=== PATIENT | female | born 1955 | race Caucasian/White ===

== ENCOUNTER → 2024-10-28 | Outpatient (CLI) | payer MEDICARE, BC, SELFPAY ==
[2024-10-28 14:15] LABS: Albumin, Serum 4.3 gm/dL (3.4-4.8); Anion Gap 7 (7-16); BUN/Creatinine Ratio 11 Ratio (12-20); Blood Urea Nitrogen 23 mg/dL (9-23); Calcium 10.4 mg/dL (8.3-10.6); Calcium (Corrected) 10.4 mg/dL (8.5-10.1); Carbon Dioxide 26.8 mMol/L (20.0-31.0); Chloride 103 mMol/L (98-107); Creatinine (Component) 2.1 mg/dL (0.6-1.3); Glucose 94 mg/dL (74-106); Osmolality,Calculated 277 (275-295); Sodium 137 mMol/L (136-145); eGFR 25 See Note
== END | disposition home or self-care (01) ==
PROVIDERS: PCP Nurse Practitioner Family; Referring Provider Internal Medicine; Visit Provider Internal Medicine
DX: N18.4 Chronic kidney disease, stage 4 (severe) (principal); D63.1 Anemia in chronic kidney disease; F32.9 Major depressive disorder, single episode, unspecified; D50.9 Iron deficiency anemia, unspecified; E55.9 Vitamin D deficiency, unspecified
CPT/HCPCS: 36415; 80069

== ENCOUNTER → 2024-12-24 | Outpatient (BNVA) | payer MEDICARE, BC, SELFPAY | END | disposition home or self-care (01) | PROVIDERS: PCP Nurse Practitioner Family; Referring Provider Nurse Practitioner Family; Visit Provider Urology | DX: N18.4 Chronic kidney disease, stage 4 (severe) (principal); K21.9 Gastro-esophageal reflux disease without esophagitis; E03.9 Hypothyroidism, unspecified; F31.9 Bipolar disorder, unspecified; E66.9 Obesity, unspecified; Z68.29 Body mass index [BMI] 29.0-29.9, adult | CPT/HCPCS: 81003; 99202; 99212; G0463 ==

== ENCOUNTER 2025-01-16 14:27 | Inpatient (IN) | payer MEDICARE, BC, SELFPAY ==
[2025-01-16] VITALS (7 sets, daily range): BP systolic 97–143; BP diastolic 50–100; PULSE 55–88; RESP 15–20; TEMP 36.5–36.7; O2SAT 97–100; BMI 30.2
--- NOTE | 2025-01-16 15:14 | EKG_ITS ---
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
--- NOTE | 2025-01-16 15:14 | XR_ITS ---
Examination: AP chest single view TECHNIQUE: AP portable semiupright chest single view Exam date and time: January 16, 2025 1645 hours Comparison 06/27/2015 INDICATIONS: Chest pain beginning 3 days ago. FINDINGS: Retrocardiac gastric hernia Normal heart size Mild vascular congestion Suspicious for early pneumonia left base No pulmonary edema IMPRESSION: Suspicious for early pneumonia left base
--- NOTE | 2025-01-16 15:14 | XR_ITS ---
Examination: CT brain head without contrast. 2-D sagittal coronal reconstructions Date and time of exam:January 16, 2025 1101 hours COMPARISON: 06/25/2015 INDICATIONS: Altered mental status today Technique: Multiple CT axial sections of the brain have been obtained, 5 mm slice thickness. Contrast has not been administered. 2-D sagittal, coronal reconstructions have been obtained Low dose protocols were performed. One or more of the following dose reduction techniques were used; automated exposure control, adjustment of the mA and/or KV according to patient size, use of iterative reconstruction technique. Findings: No significant ventricular enlargement. Intra-axial or extra-axial hemorrhage density is not seen. No mass effect or midline shift Basal cisterns are not remarkable. Fourth ventricle is midline. Cranial vault intact. Impression: Negative for acute hemorrhage, mass effect or midline shift
--- NOTE | 2025-01-16 15:17 | PD.EDRME ---
Rapid Medical Screening Exam RME Arrival date/time: 01/16/25 14:27 Chief Complaint: Altered Mental Status Time Seen by Provider: 01/16/25 14:55 Vital signs: Vital Signs Temperature 97.9 F 01/16/25 14:45 Pulse Rate 55 L 01/16/25 14:45 Respiratory Rate 18 01/16/25 14:45 Blood Pressure 123/82 01/16/25 14:45 Pulse Oximetry (%) 98 01/16/25 14:45 Oxygen Delivery Method Room Air 01/16/25 14:45 RME Narrative: 69-year-old female brought in by son for evaluation of altered mentation x 4 days. States 4 days ago spoke with her on the phone and was concerned that she sounded slightly confused in and out of conversation over the phone. He went to go check on her today and she did not know what day it was and seemed very different from her baseline. Although she is walking and moving all extremities. Speech was not slurred but slower. Patient does have a history of bipolar disorder supposed to be taking lithium however her son found more pills that she should have left on her prescription indicating she is probably not taking them. She has urinary incontinence for baseline and therefore frequent UTIs.
[2025-01-16 16:37] LABS: Base Excess, Venous -2 (-3-3); O2 Saturation, Venous 52 % (96-97); PCO2, Venous 49 mmHg (36-56); PO2, Venous 28 mmHg (15-58); pH, Venous 7.31 (7.33-7.66)
[2025-01-16 16:42] LABS: Basophils # (Auto) 0.1 Thou/mm3 (0.0-0.2); Basophils % (Auto) 1 % (0-2.5); Eosinophils # (Auto) 0.4 Thou/mm3 (0.0-0.5); Eosinophils % (Auto) 3 % (0-10); Hematocrit 36.2 % (36.0-46.0); Immature Granulocytes % (Auto) 0 % (0-0); Immature Granulocytes Auto 0.03 Thou/mm3 (0.00-0.00); Lymphocytes # (Auto) 2.3 Thou/mm3 (1.0-4.8); Lymphocytes % (Auto) 21 % (10-50); Mean Corpuscular HGB Conc 33.1 g/dl (31.0-37.0); Mean Corpuscular Hemoglobin 31.7 pg (25.0-35.0); Mean Corpuscular Volume 96 fL (80-100); Monocytes # (Auto) 0.6 Thou/mm3 (0.0-0.8); Monocytes % (Auto) 6 % (0-12); Neutrophils # (Auto) 7.4 Thou/mm3 (1.8-7.7); Neutrophils % (Auto) 69 % (37-80); Nucleated Red Blood Cell % 0 /100 WBC (0); Platelet Count 334 Thou/mm3 (140-440); RDW Standard Deviation 48.8 fL (36.4-46.3); Red Blood Count 3.79 Miln/mm3 (4.00-5.20); White Blood Count 10.7 Thou/mm3 (3.6-11.0)
[2025-01-16 16:57] LABS: B-Type Natriuretic Peptide 52 pg/mL (0-100)
[2025-01-16 16:58] LABS: Alanine Aminotransferase 23 U/L (10-49); Albumin, Serum 4.6 gm/dL (3.4-4.8); Albumin/Globulin Ratio 1.6 (1.2-2.2); Alkaline Phosphatase 103 U/L (46-116); Anion Gap 8 (7-16); Aspartate Amino Transferase 33 U/L (0-34); BUN/Creatinine Ratio 7 Ratio (12-20); Bilirubin,Total 0.5 mg/dL (0.3-1.2); Blood Urea Nitrogen 20 mg/dL (9-23); Carbon Dioxide 23.5 mMol/L (20.0-31.0); Chloride 108 mMol/L (98-107); Creatinine (Component) 2.7 mg/dL (0.6-1.3); Estimated Creatinine Clearance 18.4 mL/min (>60); Globulin 2.9 gm/dL (2.3-3.5); Glucose 114 mg/dL (74-106); Osmolality,Calculated 281 (275-295); Potassium 4.1 mMol/L (3.4-5.1); Sodium 139 mMol/L (136-145); Total Protein 7.5 gm/dL (5.7-8.2); Troponin I < 0.020 ng/mL (0.0-0.045); eGFR 19 See Note
--- NOTE | 2025-01-16 17:25 | PD.EDAMS ---
Altered Mental Status RME/HPI General Chief Complaint: Altered Mental Status Stated Complaint: Referred by PCP to r/o stroke Time Seen by Provider: 01/16/25 14:55 Arrival date/time: 01/16/25 14:27 RME / HPI RME / HPI narrative: 69-year-old female brought in by son for evaluation of altered mentation x 4 days. States 4 days ago spoke with her on the phone and was concerned that she sounded slightly confused in and out of conversation over the phone. He went to go check on her today and she did not know what day it was and seemed very different from her baseline. Although she is walking and moving all extremities. Speech was not slurred but slower. Patient does have a history of bipolar disorder supposed to be taking lithium however her son found more pills that she should have left on her prescription indicating she is probably not taking them. She has urinary incontinence for baseline and therefore frequent UTIs. DR. TAY NORRIS ED EVALUATION: 69 year old female with past medical history significant for Bipolar Disorder on [place] presents to the Emergency Department accompanied by the brother with complaint of altered mental status. Per brother, the patient has been like in and out like losing her keys and stating random stuff. Brother thinks that maybe the patient too too much or too little of her medications. No history obtainable from the patient. Patient went to her PCP at [facility] and they tested her urine, she was sent here and diagnosed with an UTI. Per brother, the patient has complained of bilateral flank pain. Related Data Home Medications ?Medication ?Instructions ?Recorded ?Confirmed mirtazapine 15 mg tablet (Remeron) 15 mg PO HS #0 tabs 07/14/15 12/24/24 lithium carbonate 300 mg capsule 300 mg PO BID 11/17/20 12/24/24 propranolol 10 mg tablet 10 mg PO BID 11/17/20 12/24/24 mirabegron 25 mg tablet,extended 25 mg PO QDAY 11/13/23 12/24/24 release 24 hr (Myrbetriq) quetiapine 300 mg tablet 300 mg PO HS 11/13/23 12/24/24 temazepam 30 mg capsule 30 mg PO QDAY 11/13/23 12/24/24 Held on 11/13/23. Instructions: Resume on 11/14/23. may resume after 24 hours Allergies Allergy/AdvReac Type Severity Reaction Status Date / Time Sulfa (Sulfonamide Allergy Unknown Verified 12/24/24 09:49 Antibiotics) Review of Systems Review of Systems Systems Reviewed: All systems reviewed, normal except as documented Past Medical History Past Medical History GENITOURINARY: Positive Genitourinary Disorders (OVERACTIVE BLADDER) PSYCHO/SOCIAL: Positive Bipolar Disorder and Depression Social History SMOKING STATUS: Never smoker SUBSTANCE USE: does not use ALCOHOL: Never ED Exam Narrative Physical exam: GENERAL APPEARANCE: Fixated to her left but not neglecting her right, awake, alert to her name only, confused, does not answer questionnaire, seems under no acute distress. HEENT: NC, AT. MMM. EOMI, clear conjunctiva, oropharynx clear. Seems dehydrated. NECK: Supple without lymphadenopathy. No stiffness or restricted ROM. HEART: Normal rate and regular rhythm, normal S1/S1, no m/r/g LUNGS: CTAB, moving air well. No crackles or wheezes are heard. ABDOMEN: Soft, nontender, nondistended with good bowel sounds heard. BACK: No midline C/T/L spine pain or deformity, No CVAT, no obvious deformity. EXTREMITIES: Without cyanosis, clubbing or edema. MUSCULOSKELETAL: FROM of all major joints, no chest tenderness NEUROLOGICAL: Fixated to her left but not neglecting her right, awake, alert to her name only, confused. Skin: Warm and dry without any rash. Course Quality Measures none Orders Category Date Time Status EKG (ED ONLY) *Do not use* NOW Care 01/16/25 15:[address] head/brain wo con Stat Exams 01/16/25 15:14 Ordered EKG (ED Only) Stat Exams 01/16/25 15:14 Draft XR chest 1V Stat Exams 01/16/25 15:14 Completed BNP [B-Type Natriuretic Peptide] Stat Lab 01/16/25 16:27 Completed CBC Stat Lab 01/16/25 16:27 Completed CMP [Comprehensive Metabolic Panel] Stat Lab 01/16/25 16:27 Completed Lactic Acid [Lactate (Lactic Acid)] Stat Lab 01/16/25 16:27 Completed [place] Stat Lab 01/16/25 16:27 Completed Troponin I Stat Lab 01/16/25 16:27 Completed UA [Urinalysis] Stat Lab 01/16/25 17:51 Received Urine Culture Stat Lab 01/16/25 17:51 Received VBG [Venous Blood Gas] Stat Lab 01/16/25 16:27 Completed Sodium Chloride 0.9% 1000 ml [Ns] 1,000 ml Med 01/16/25 17:30 Active IV 80 mls/hr Sodium Chloride 0.9% 1000 ml [Ns] 1,000 ml Med 01/16/25 17:28 Active IV 999 mls/hr Vital Signs Vital signs: Vital Signs Temperature 97.9 F 01/16/25 14:45 Pulse Rate 55 L 01/16/25 14:45 Respiratory Rate 18 01/16/25 14:45 Blood Pressure 123/82 01/16/25 14:45 Pulse Oximetry (%) 98 01/16/25 14:45 Oxygen Delivery Method Room Air 01/16/25 14:45 Procedures -ED EKG Interpretation #1: Date of EK01/16/25 Time of EK:25 Rate: 57 Interpretation: Interpreted by me Additional EKG comment: sinus bradycardia, rate 57, normal intervals, normal axis, no acute ST-T wave changes. Altered Mental Status MDM Narrative MDM Narrative:: Nahomi Light am scribing for and in the presence of Dr. Spears. Patient data External records reviewed:: [facility] previous records (Reviewed urology note by Dr. Cheung, dated 12/24/24. ) Clinical information provided by:: patient Social determinants that could affect healthcare access:: none Patient has the following chronic illnesses:: Bipolar Disorder on [place] How is presenting disease/condition affected by chronic disease/condition?: exacerbated by Evaluation data The following diagnostics were reviewed and interpreted by me:: lab results, radiology exam(s) and EKG tracing(s) Lab and/or radiology exams considered but not ordered:: none Interpretation Summary: Procedure(s): XR chest 1V Accession Number(s): [id number] cc: Shruthi Rice PA-C; Niesha Munoz NP; Mat Garza MD~ Examination: AP chest single view TECHNIQUE: AP portable semiupright chest single view Exam date and time: January 16, 2025 1645 hours Comparison 06/27/2015 INDICATIONS: Chest pain beginning 3 days ago. FINDINGS: Retrocardiac gastric hernia Normal heart size Mild vascular congestion Suspicious for early pneumonia left base No pulmonary edema IMPRESSION: Suspicious for early pneumonia left base Dictated By: Mat Garza MD Medications / Prescriptions Medications or Prescriptions considered but not ordered:: none Medication administrations:: Medication Administration History Sodium Chloride (Ns) 1,000 mls @ 999 mls/hr IV .Q1H1M ONE Stop: 01/16/25 18:28 Last Admin: 01/16/25 17:40 Dose: 999 mls/hr Documented By: KAREN Sodium Chloride (Ns) 1,000 mls @ 80 mls/hr IV .[id number] CHERYL Stop: 02/15/25 17:29 Last Admin: 01/16/25 17:40 Dose: 80 mls/hr Documented By: KAREN see above Consultations Consultation(s) initiated? (list below): No Diagnosis Differential diagnosis altered mental status: altered mental status, sepsis and other (dehydration, TIA, CVA) Most likely diagnosis given after review of the tests above:: [place] toxicity ISAIAH Admission Indicated Admission indicated?: not indicated Explain why admission is indicated or not indicated:: No final disposition plan at this time, still pending diagnostic tests. Patient signout to the scene shifter provider. Admission Request Was there a request for admission?: No Disposition Plan Disposition Plan: other (specify) (Patient signout to the scene shifter provider, pending head CT and then admission.) Critical Care Time Critical Care Time Critical Care Time: Yes Total Critical Care Time (min.): 35 Attestation: excluding billable procedures for the rapid response, analysis, management, treatment, and documentation to prevent the very possible risk of neurologic and/or metabolic decompensation or . Discharge Plan Prescriptions/Referrals Prescriptions/Med Rec: No Action lithium carbonate 300 mg capsule 300 mg PO BID propranolol 10 mg tablet 10 mg PO BID mirtazapine [Remeron] 15 MG tablet 15 mg PO HS Qty: 0 temazepam 30 mg capsule 30 mg PO QDAY Myrbetriq 25 mg tablet extended release 24 hr 25 mg PO QDAY Patient Comments: TAKE 1 TABLET BY MOUTH EVERY DAY FOR 30 DAYS quetiapine 300 mg tablet 300 mg PO HS Patient Comments: TAKE 1 TABLET BY MOUTH EVERY DAY Referrals: Niesha Munoz CLINICAL AUDIOLOGIST [Primary Care Provider] - In 1 week Problem List Clinical Impression: [place] toxicity, ISAIAH (acute kidney injury) Patient/Caregiver Discharge Instructions Print Language: Portuguese
[2025-01-16 17:29] LABS: Lithium 1.98 mEq/L (1.00-1.20)
[2025-01-16] MEDS: SODIUM CHLORIDE 0.9% 1000 ML 1,000 ML 999 ML IV (17:40)
[2025-01-16] MEDS: SODIUM CHLORIDE 0.9% 1000 ML 1,000 ML 80 ML IV (17:40)
[2025-01-16 18:14] LABS: Collection Type, Urine Clean Catch; Squamous Epithelial Cell,Urine 0 /hpf (0-5)
[2025-01-16 18:23] LABS: Bilirubin,Urine Negative (Negative); Blood,Urine Negative (Negative); Clarity,Urine Clear (Clear/Hazy); Color,Urine Colorless (Lt Yel-Yel); Glucose, Urine Negative (Negative); Ketones,Urine Negative (Negative); Leukocyte Esterase,Urine Negative (Negative); Nitrite,Urine Negative (Negative); Protein,Urine Negative (Neg - Trace); RBC,Urine < 1 /hpf (0-3); Specific Gravity,Urine 1.005 (1.001-1.035); Urobilinogen,Urine Negative mg/dL (0.0-1.0); WBC,Urine 1 /hpf (0-5)
[2025-01-17] VITALS (14 sets, daily range): BP systolic 132–171; BP diastolic 73–109; PULSE 45–124; RESP 18–26; TEMP 35.9–37.2; O2SAT 94–97; BMI 30.2
--- NOTE | 2025-01-17 01:00 | PD.EDADDENDU ---
Emergency Room Addendum Addendum Narrative: I took over the care from Dr. Spears at 6 PM on 01/16/2025, see his notes for complete H&P and ED course. He asked me to review the head CT report. My review of the head CT report is no acute findings. At this point, diagnoses include AMS, ISAIAH, Hyperglycemia, and [place] Toxicity. I discussed the case with our hospitalist. About the presentation and exam and diagnostics and treatments here. And need of further care in the hospital. Will accept the patient. Luke Cary MD
--- NOTE | 2025-01-17 01:14 | PC.NURSE ---
new brief and purewick in place. gregory care provided. vitals taken.
--- NOTE | 2025-01-17 02:25 | PD.RESHP ---
Documentation for date of: 01/17/25 HPI History of Present Illness History of present illness: The patient is a 69-year-old female with significant past medical history of CKD stage IV, obesity, GERD, hypothyroidism, major depressive disorder, bipolar disorder and possible dementia presented to ED along with her daughter with chief complaint of altered mental status for 1 day. The patient is a poor historian, and history was obtained by interviewing patient herself and chart review. She reported that she has recently been forgetful, and sometimes forgets to take her medications, raising concerns regarding taking extra doses of medications. She also reported that she has been urinating a lot, and tries to drink water as much as possible, but has not been able to drink enough. About 8 weeks ago she hurt her right leg and after that she has been extremely weak to ambulate around herself. At home, her daughter look after her, but she usually takes care of her herself. She denied any headache, nausea or vomiting, chest pain, SOB, abdominal pain, and changes in bowel habit, fever or chills, or any leg swelling. In the ED, her vitals were fairly stable with pulse 55, labs were significant for RBC 3.79, RDW 48.8, hemoglobin 12.0, chemistry panel revealed creatinine 2.7, GFR 19, blood sugar 114, corrected calcium 11.0, UA negative and lithium level 1.98. EKG revealed sinus bradycardia with heart rate 57, and QTc 381. Head CT was negative for acute hemorrhage, mass effect or midline shift. Chest x-ray was suspicious for early pneumonia left base. PMH: As mentioned above SHX: Hernia repair during infant, Social history: Denies smoking or illicit drug use, occasional or social drinker Allergies: Sulfa drugs, gives a rash Medications: To be reconciled Patient was given 1 L of IV normal saline bolus and started on IV normal saline 80 cc/h maintenance fluid. Review of Systems Review of Systems Systems Reviewed: All systems reviewed, normal except as documented Exam Vital Signs Temp Pulse Resp BP Pulse Ox O2 Del Method 99.0 F 64 18 148/73 H 97 Room Air 01/17/25 01:00 01/17/25 01:00 01/17/25 01:00 01/17/25 01:00 01/17/25 01:00 01/17/25 01:00 Narrative Exam General: Elderly, cooperative female, no acute distress, Alert and Oriented x 3 HEENT: Mildly dry mucous membranes, oropharynx clear Neck: Supple, No masses, No JVD CVS: Sinus bradycardia, No murmurs, rubs or gallops Lungs: Clear to auscultation with no accessory use, no wheeze no rhonchi Abd: Soft, NT/ND, +BS, no organomegaly Ext: No edema, warm and well perfused, bilateral lower extremity weakness with 3/5 motor strength Skin: No rash Neuro: Cranial nerve II to XII grossly intact Psych: Appropriate mood and affect Results: Labs 01/17/25 02:46 01/17/25 02:46 Labs: Short CBC 01/16/25 Range/Units 16:27 WBC 10.7 (3.6-11.0) Thou/mm3 Hgb 12.0 (12.0-16.0) g/dL Hct 36.2 (36.0-46.0) % Plt Count 334 (140-440) Thou/mm3 BMP 01/16/25 16:27 Sodium 139 Potassium 4.1 Chloride 108 H Carbon Dioxide 23.5 BUN 20 Creatinine 2.7 H Glucose 114 H Calcium 11.0 H Cardiac Enzymes 01/16/25 Range/Units 16:27 Troponin I < 0.020 (0.0-0.045) ng/mL Liver Function 01/16/25 Range/Units 16:27 Total Bilirubin 0.5 (0.3-1.2) mg/dL AST 33 (0-34) U/L ALT 23 (10-49) U/L Alkaline Phosphatase 103 (46-116) U/L Albumin 4.6 (3.4-4.8) gm/dL Urine 01/16/25 Range/Units 17:51 Urine Color Colorless A (Lt Yel-Yel) Urine Clarity Clear (Clear/Hazy) Urine pH 6.0 (5.0-7.0) Ur Specific [place] 1.005 (1.001-1.035) Urine Protein Negative (Neg - Trace) Urine Glucose (UA) Negative (Negative) ABG Interpretation ABG results: 01/16/25 16:27 VBG pH 7.31 L VBG pCO2 49 VBG pO2 28 VBG Base Excess -2 Quality Measures Quality Measures none Advance care planning discussed with:: patient Medications Home Medications and Allergies Home Medications ?Medication ?Instructions ?Recorded ?Confirmed ?Type mirtazapine 15 mg tablet (Remeron) 30 mg PO HS #0 tabs 07/14/15 01/16/25 History lithium carbonate 300 mg capsule 300 mg PO BID 11/17/20 01/17/25 History propranolol 10 mg tablet 10 mg PO Q6H 11/17/20 01/16/25 History mirabegron 25 mg tablet,extended 25 mg PO QDAY 11/13/23 01/16/25 History release 24 hr (Myrbetriq) quetiapine 300 mg tablet 300 mg PO HS 11/13/23 01/16/25 History temazepam 30 mg capsule 30 mg PO QDAY 11/13/23 01/16/25 History Held on 11/13/23. Instructions: Resume on 11/14/23. may resume after 24 hours vitamin B complex-vitamin C-folic 1 tab PO Q24H 01/16/25 01/17/25 History acid 0.8 mg tablet (Sho-Dorothy) Allergies Allergy/AdvReac Type Severity Reaction Status Date / Time Sulfa (Sulfonamide Allergy Unknown Verified 12/24/24 09:49 Antibiotics) Visit Medications Acetaminophen (Acetaminophen 325 Mg Tablet) 650 mg PO Q6H PRN PRN Reason: PAIN SCALE 1-3 (mild Stop: 02/16/25 01:44 Heparin Sodium (Porcine) (Heparin Sod Inj 5000 Unit/Ml Vial) 5,000 unit SC Q8HR CEHRYL Stop: 01/31/25 05:59 Sodium Chloride (Ns) 1,000 mls @ 80 mls/hr IV .[id number] CHERYL Stop: 02/15/25 17:29 Last Admin: 01/16/25 17:40 Dose: 80 mls/hr Magnesium Sulfate (Magnesium Sulfate Ivpb) 2 gm in 50 mls @ 25 mls/hr IV X1 ONE Stop: 01/17/25 04:11 Mirtazapine (Mirtazapine 15 Mg Tablet) 30 mg PO HS CHERYL Stop: 02/16/25 02:14 Ondansetron HCl (Ondansetron Inj 2 Mg/Ml Inj 2 Ml) 4 mg IV Q6H PRN; Protocol PRN Reason: NAUSEA OR VOMITING Stop: 02/16/25 01:39 Propranolol HCl (Propranolol 10 Mg Tablet) 10 mg PO Q6H CHERYL Stop: 02/16/25 02:14 Discontinued Medications Sodium Chloride (Ns) 1,000 mls @ 999 mls/hr IV .Q1H1M ONE Stop: 01/16/25 18:28 Last Infusion: 01/16/25 18:36 Dose: Infused Quetiapine Fumarate (Quetiapine Fumarate 100 Mg Tablet) 200 mg PO X1 ONE Stop: 01/17/25 02:15 Assessment & Plan Plan The patient is a 69-year-old female with significant past medical history of CKD stage IV, obesity, GERD, hypothyroidism, major depressive disorder, bipolar disorder and possible dementia presented to ED along with her daughter with chief complaint of altered mental status for 1 day. Patient admitted to telemetry unit for further management of acute encephalopathy secondary to lithium toxicity and mild hypercalcemia in the setting of ISAIAH on CKD stage IV. #Acute encephalopathy, resolved Likely multifactorial 2/2 #[place] toxicity #Mild hypercalcemia #Rule out intracranial bleed The patient was brought into the ED with chief complaint of altered mental status, and she has been forgetful recently and misses her lithium doses, making her suspicious for taking some extra pills. She also reported that she has been urinating a lot, and has been trying to keep herself rehydrated, but has not been able to drink enough, likely triggering hypercalcemia. Presented with lithium level of 1.98, and corrected calcium level of 11.0. CT head was negative for acute hemorrhage, midline shift or mass effect The patient received 1 L IV normal saline bolus and was started on IV normal saline 80 cc/h maintenance fluid in the ED, and during my evaluation she was alert and oriented x 3. - Continue on maintenance normal saline 80 cc/h - Monitor lithium level every 4 hourly - Maintain potassium greater than 4 and magnesium greater than 2, to prevent arrhythmia or QTc prolongation - Daily a.m. labs were CMP - Monitor closely #ISAIAH on CKD stage IV Likely prerenal secondary to dehydration secondary to lithium induced diabetes insipidus Patient reported that she has been urinating a lot, and trying to rehydrate herself, but has not been able to drink enough -Patient received 1 L IV normal saline bolus and was started on IV normal saline 80 cc/h maintenance fluids in the ED - Daily a.m. 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 at bedtime for MDD - Ordered quetiapine 200 Mg p.o. x 1, may start on home dose of 300 Mg p.o. at bedtime #Hypothyroidism Unknown if patient is currently taking any medications - Ordered TSH - Reconcile medications #Possible dementia Patient reported that she has been forgetful recently, and has been missing her medications. -May consider neurology consultation Health maintenance: Dispo: Patient admitted to telemetry unit for further management of acute encephalopathy secondary to lithium toxicity and mild hypercalcemia in the setting of ISAIAH on CKD stage IV Diet: N.p.o. for now, can be started on regular diet after swallow eval DVT prophylaxis: Subcu heparin CODE STATUS: Full code The patient's management plan was discussed with my attending physician MD Solomon Guan MD, PGY2 Attending Provider Attestation/Addendum Patient was seen and examined in ED bed #2 presenting with altered mental status. Patient has bipolar disorder depression, possible early dementia. Patient was found to have high lithium level. Patient has CKD with worsening creatinine. Case discussed with product manager medical device. Will monitor urine output. Will check BUN/creatinine and monitor electrolytes. Hold lithium.
--- NOTE | 2025-01-17 02:51 | PC.NURSE ---
report called to radha andujar at this time.
[2025-01-17 03:00] LABS: Basophils # (Auto) 0.1 Thou/mm3 (0.0-0.2); Basophils % (Auto) 1 % (0-2.5); Eosinophils # (Auto) 0.4 Thou/mm3 (0.0-0.5); Eosinophils % (Auto) 4 % (0-10); Hematocrit 34.1 % (36.0-46.0); Hemoglobin 11.3 g/dL (12.0-16.0); Immature Granulocytes % (Auto) 0 % (0-0); Immature Granulocytes Auto 0.02 Thou/mm3 (0.00-0.00); Lymphocytes # (Auto) 2.7 Thou/mm3 (1.0-4.8); Lymphocytes % (Auto) 28 % (10-50); Mean Corpuscular HGB Conc 33.1 g/dl (31.0-37.0); Mean Corpuscular Hemoglobin 31.8 pg (25.0-35.0); Mean Corpuscular Volume 96 fL (80-100); Monocytes # (Auto) 0.8 Thou/mm3 (0.0-0.8); Monocytes % (Auto) 8 % (0-12); Neutrophils # (Auto) 5.8 Thou/mm3 (1.8-7.7); Neutrophils % (Auto) 60 % (37-80); Nucleated Red Blood Cell % 0 /100 WBC (0); Platelet Count 298 Thou/mm3 (140-440); RDW Standard Deviation 49.1 fL (36.4-46.3); Red Blood Count 3.55 Miln/mm3 (4.00-5.20); White Blood Count 9.7 Thou/mm3 (3.6-11.0)
[2025-01-17 03:15] LABS: Glucose Estimated Average 103 mg/dL (80-131); Hemoglobin A1C 5.2 % Hgb (4.8-6.0)
[2025-01-17 03:23] LABS: Alanine Aminotransferase 18 U/L (10-49); Albumin, Serum 3.9 gm/dL (3.4-4.8); Albumin/Globulin Ratio 1.6 (1.2-2.2); Alkaline Phosphatase 89 U/L (46-116); Anion Gap 7 (7-16); Aspartate Amino Transferase 22 U/L (0-34); BUN/Creatinine Ratio 7 Ratio (12-20); Bilirubin,Total 0.5 mg/dL (0.3-1.2); Blood Urea Nitrogen 16 mg/dL (9-23); Calcium 10.1 mg/dL (8.3-10.6); Calcium (Corrected) 10.2 mg/dL (8.5-10.1); Carbon Dioxide 23.5 mMol/L (20.0-31.0); Cardiac Risk Estimate 2.5 RATIO (3.7-5.6); Chloride 117 mMol/L (98-107); Cholesterol 167 mg/dL (132-200); Creatinine (Component) 2.4 mg/dL (0.6-1.3); Estimated Creatinine Clearance 20.7 mL/min (>60); Globulin 2.4 gm/dL (2.3-3.5); Glucose 90 mg/dL (74-106); HDL Cholesterol 68 mg/dL (40-60); LDL Cholesterol,Calculated 86 mg/dL (0-130); Magnesium 1.9 mg/dL (1.6-2.6); Osmolality,Calculated 293 (275-295); Sodium 147 mMol/L (136-145); Thyroid Stimulating Hormone 4.77 uIU/mL (0.55-4.78); Total Protein 6.3 gm/dL (5.7-8.2); Triglycerides 63 mg/dL (30-150); eGFR 22 See Note
[2025-01-17] MEDS: Magnesium Sulfate 2 GM Ivpb 2 GM/50 ML BAG IV (03:43)
[2025-01-17] MEDS: MIRTAZAPINE 15 MG TABLET 30 MG PO ×2 (03:43→21:20)
[2025-01-17] MEDS: QUEtiapine FUMARATE 100 MG TABLET 200 MG PO (03:43)
[2025-01-17] MEDS: PROPRANOLOL 10 MG TABLET PO ×4 (03:44→21:18)
[2025-01-17 03:49] LABS: Lithium 1.72 mEq/L (1.00-1.20)
[2025-01-17] MEDS: SODIUM CHLORIDE 0.9% 1000 ML 1,000 ML 80 ML IV (05:49)
[2025-01-17] MEDS: HEPARIN SOD INJ 5000 UNIT/ML VIAL SC ×3 (05:49→21:20)
[2025-01-17] MEDS: SODIUM CHLORIDE 0.45 % 1,000 ML 200 ML IV (08:35)
[2025-01-17 09:23] LABS: Albumin, Serum 3.9 gm/dL (3.4-4.8); Anion Gap 8 (7-16); BUN/Creatinine Ratio 7 Ratio (12-20); Blood Urea Nitrogen 15 mg/dL (9-23); Calcium 10.3 mg/dL (8.3-10.6); Calcium (Corrected) 10.4 mg/dL (8.5-10.1); Carbon Dioxide 21.9 mMol/L (20.0-31.0); Chloride 119 mMol/L (98-107); Creatinine (Component) 2.3 mg/dL (0.6-1.3); Estimated Creatinine Clearance 21.6 mL/min (>60); Free T4 (Free Thyroxine) 0.77 ng/dL (0.89-1.76); Glucose 95 mg/dL (74-106); Osmolality,Calculated 296 (275-295); Phosphorous 2.8 mg/dL (2.4-5.1); Potassium 4.3 mMol/L (3.4-5.1); Sodium 149 mMol/L (136-145); eGFR 23 See Note
--- NOTE | 2025-01-17 11:09 | ESPR_ITS ---
<Statement entered by Manoj Castro MD - 01/17/25 18:15> I discussed with and supervised the internet sales director physician involved in the care of this patient. Patient assessment and plan was discussed with entire medicine team, including my attending. I agree with the assessment and plan as documented by internet sales director doctor. Patient care was discussed with my attending physician Dr. Jonas Castro, PGY-2 Documentation for date of: 01/17/25 Subjective Subjective Interval history: Patient seen and examined at bedside, labs and vitals reviewed. Patient admitted overnight for acute metabolic encephalopathy secondary to lithium toxicity. Patient presented to ED for mL of 1.98 which has improved overnight to 1.6 with IV fluids. Patient is alert and oriented x 4, significant tremors noted bilateral upper and lower extremities, does have trace lower extremity edema. Patient does have hypernatremia now, sodium elevated to 147 at 2 AM earlier today, 149 currently. Nephrology was consulted recommended 1/2 NS and patient was started on 200 cc/h Patient's renal panel shows significant improvement, patient has good urine output About 1.2 L since admission, will continue to monitor lithium levels every 4 hour. Hypercalcemia improved. Exam Vital Signs Temp Pulse Resp BP Pulse Ox O2 Del Method 97.1 F 87 26 H 132/109 H 94 L Room Air 01/17/25 08:00 01/17/25 08:35 01/17/25 08:00 01/17/25 08:35 01/17/25 08:00 01/17/25 08:00 Narrative Exam Physical Exam General: Awake and in no acute distress. Conversational and non-toxic appearing. HEENT: Normocephalic, atraumatic, mucous membranes moist. Heart: Regular rate and rhythm, no murmurs. Lungs: Clear to auscultation with no wheezing or crackles. Abdomen: Soft, nondistended, nontender, positive bowel sounds. ?No guarding or rebound tenderness. Neurologic: Alert and oriented x4, tremors noted bilateral upper and lower extremities, does have lower extremity weakness 4/5 Extremities: Trace lower extremity edema. Skin: No rash or ecchymoses. Objective Labs 01/18/25 07:35 01/18/25 07:35 Labs: Laboratory Results - last 24 hr 01/16/25 01/16/25 01/17/25 16:27 17:51 02:46 WBC 10.7 9.7 RBC 3.79 L 3.55 L Hgb 12.0 11.3 L Hct 36.2 34.1 L MCV 96 96 MCH 31.7 31.8 MCHC 33.1 33.1 RDW Std Deviation 48.8 H 49.1 H Plt Count 334 298 D Neut % (Auto) 69 60 Lymph % (Auto) 21 28 [place] % (Auto) 6 8 Eos % (Auto) 3 4 Baso % (Auto) 1 1 Neut # (Auto) 7.4 5.8 Lymph # (Auto) 2.3 2.7 [place] # (Auto) 0.6 0.8 Eos # (Auto) 0.4 0.4 Baso # (Auto) 0.1 0.1 Immature Gran # (Auto) 0.03 H 0.02 H Absolute Nucleated RBC 0.00 0.00 Immature Gran % 0 0 Nucleated RBC % 0 0 VBG pH 7.31 L VBG pCO2 49 VBG pO2 28 VBG O2 Sat (Dipak) 52 L VBG Base Excess -2 Sodium 139 147 H Potassium 4.1 4.0 Chloride 108 H 117 H Carbon Dioxide 23.5 23.5 Anion Gap 8 7 BUN 20 16 Creatinine 2.7 H 2.4 H Estim Creat Clear Calc 18.4 L 20.7 L eGFR 19 L 22 L BUN/Creatinine Ratio 7 L 7 L Glucose [address] Glu mg/dL 103 Hemoglobin A1c 5.2 Calculated Osmolality 281 293 Lactic Acid 1.0 Calcium 11.0 H 10.1 Corrected Calcium 11.0 H 10.2 H Phosphorus Magnesium 1.9 Total Bilirubin 0.5 0.5 AST 33 22 ALT 23 18 Alkaline Phosphatase 103 89 Troponin I < 0.020 B-Natriuretic Peptide 52 Total Protein 7.5 6.3 Albumin 4.6 3.9 D Globulin 2.9 2.4 Albumin/Globulin Ratio 1.6 1.6 Triglycerides 63 Cholesterol 167 LDL Cholesterol, Calc 86 HDL Cholesterol 68 H Cholesterol/HDL Ratio 2.5 L TSH 4.77 Free T4 Ur Collection Type Clean Catch Urine Color Colorless A Urine Clarity Clear Urine pH 6.0 Ur Specific [place] 1.005 Urine Protein Negative Urine Glucose (UA) Negative Urine Ketones Negative Urine Blood Negative Urine Nitrite Negative Urine Bilirubin Negative Urine Urobilinogen (Auto) Negative Ur Leukocyte Esterase Negative Urine RBC < 1 Urine WBC 1 Ur Squamous Epith Cells 0 Urine Bacteria None [place] 1.98 H* 1.72 H 01/17/25 08:44 WBC RBC Hgb Hct MCV MCH MCHC RDW Std Deviation Plt Count Neut % (Auto) Lymph % (Auto) [place] % (Auto) Eos % (Auto) Baso % (Auto) Neut # (Auto) Lymph # (Auto) [place] # (Auto) Eos # (Auto) Baso # (Auto) Immature Gran # (Auto) Absolute Nucleated RBC Immature Gran % Nucleated RBC % VBG pH VBG pCO2 VBG pO2 VBG O2 Sat (Dipak) VBG Base Excess Sodium 149 H Potassium 4.3 Chloride 119 H Carbon Dioxide 21.9 Anion Gap 8 BUN 15 Creatinine 2.3 H Estim Creat Clear Calc 21.6 L eGFR 23 L BUN/Creatinine Ratio 7 L Glucose [address] Glu mg/dL Hemoglobin A1c Calculated Osmolality 296 H Lactic Acid Calcium 10.3 Corrected Calcium 10.4 H Phosphorus 2.8 Magnesium Total Bilirubin AST ALT Alkaline Phosphatase Troponin I B-Natriuretic Peptide Total Protein Albumin 3.9 Globulin Albumin/Globulin Ratio Triglycerides Cholesterol LDL Cholesterol, Calc HDL Cholesterol Cholesterol/HDL Ratio TSH Free T4 0.77 L Ur Collection Type Urine Color Urine Clarity Urine pH Ur Specific [place] Urine Protein Urine Glucose (UA) Urine Ketones Urine Blood Urine Nitrite Urine Bilirubin Urine Urobilinogen (Auto) Ur Leukocyte Esterase Urine RBC Urine WBC Ur Squamous Epith Cells Urine Bacteria [place] 1.60 H ABG Interpretation ABG results: 01/16/25 16:27 VBG pH 7.31 L VBG pCO2 49 VBG pO2 28 VBG Base Excess -2 Quality Measures Quality Measures none Advance care planning discussed with:: patient Assessment & Plan Assessment Current Active Medications: Generic Name Dose Route Start Last Admin Trade Name Freq PRN Reason Stop Dose Admin Acetaminophen 650 mg 01/17/25 01:45 Acetaminophen 325 Mg Tablet PO 02/16/25 01:44 Q6H PRN PAIN SCALE 1-3 (mild Heparin Sodium (Porcine) 5,000 unit 01/17/25 06:00 01/17/25 05:49 Heparin Sod Inj 5000 Unit/Ml Vial SC 01/31/25 05:59 5,000 unit Q8HR CHERYL Administration Sodium Chloride 1,000 mls @ 200 mls/hr 01/17/25 08:05 01/17/25 08:35 Ns 0.45% IV 01/17/25 13:04 200 mls/hr .Q5H ONE Administration Mirtazapine 30 mg 01/17/25 02:15 01/17/25 03:43 Mirtazapine 15 Mg Tablet PO 02/16/25 02:14 30 mg HS CHERYL Administration Ondansetron HCl 4 mg 01/17/25 01:40 Ondansetron Inj 2 Mg/Ml Inj 2 Ml IV 02/16/25 01:39 Q6H PRN NAUSEA OR VOMITING Protocol Propranolol HCl 10 mg 01/17/25 02:15 01/17/25 08:35 Propranolol 10 Mg Tablet PO 02/16/25 02:14 10 mg Q6H CHERYL Administration Plan Assessment and plan: Summary: Ms. Early is a 69-year-old female with significant past medical history of CKD stage IV, obesity, GERD, hypothyroidism, major depressive disorder, bipolar disorder and possible dementia presented to ED along with her daughter with chief complaint of altered mental status for 1 day. Patient admitted to telemetry unit for further management of acute encephalopathy secondary to lithium toxicity and mild hypercalcemia in the setting of ISAIAH on CKD stage IV. #Acute encephalopathy, resolved Likely multifactorial 2/ #Acute on chronic lithium toxicity #Hypernatremia #Hypercalcemia, resolving #Dehydration The patient was brought into the ED with chief complaint of altered mental status, and she has been forgetful recently and inconsistent with medication intake, possibly has underlying dementia reports taking multiple pills at times and also missing pills at times. Complains of polyuria. Presented with lithium level of 1.98, and corrected calcium level of 11.0. CT head was negative for acute hemorrhage, midline shift or mass effect The patient received 1 L IV normal saline bolus and was started on IV normal saline 80 cc/h maintenance fluid in the ED. 01/17-patient alert and oriented x 4, does have lower extremity weakness and tremors bilateral upper and lower extremities. Patient's sodium increased [id number]?> 147?> 149 overnight, patient had received about 2 L of NS. Plan: -Started on half NS 200 cc/h -Strict intake and output -Goal urine output about 3 to 5 L in 24 hours -Will continue to monitor lithium level every 4 hourly -Will continue to maintain potassium greater than 4 and magnesium greater than 2, to prevent arrhythmia or QTc prolongation -Will repeat renal panel in afternoon today, will follow sodium -Nephrology consulted, appreciate recommendations -Neurology consulted, appreciate recommendations for underlying dementia and psychiatric medications #ISAIAH on CKD stage IV Likely prerenal secondary to dehydration secondary to lithium induced nephrogenic diabetes insipidus Patient reported that she has been urinating a lot, and trying to rehydrate herself, but has not been able to drink enough -Will continue half NS -Will repeat renal panel later today -Avoid nephrotoxic drugs -Renally dose medications -Follow urine electrolytes and osmolality #Major depressive disorder #Bipolar disorder -Resumed mirtazapine 30 mg p.o. at bedtime for MDD -Patient on quetiapine 300 mg at bedtime, follow psychiatry outpatient, will hold quetiapine considering underlying encephalopathy. #Hypothyroidism, by history Not on any medications outpatient, TSH 4.77, free T4 0.77 -Consider outpatient follow-up #Possible dementia Patient reported that she has been forgetful recently, and has been missing her medications. -Neurology consulted, appreciate recommendations DVT prophylaxis: Heparin GI prophylaxis: Not indicated Diet: N.p.o., pending swallow Lines: Peripheral IV Code status: Full code Case discussed with Attending Dr. Mcdaniel and Dr. Castro PGY2. Amilcar Oliveira PGY1 Disclaimer: This note was dictated by speech recognition. Minor errors in pe teacher may be present due to voice recognition software. Attending Provider Attestation/Addendum I reviewed labs, imaging, EKG, home medications and prior available records. Face to face evaluation was performed by me. I have personally examined the patient and discussed assessment and plan with the IM team. I reviewed the resident note and agree with the plan with exceptions as below. Acute encephalopathy CKD stage IIIb Hypernatremia Bipolar disorder CT head is negative for acute changes Held quetiapine Continue IV fluids. Changed to half-normal per nephrology recommendations Sodium increased. Continue IV fluids as above. Monitor BMP Held lithium. Follow-up level Consulted nephrology for further recommendations Discussed with family: Will contact the psychiatrist. Outpatient follow-up with psychiatry
--- NOTE | 2025-01-17 11:12 | PD.NEPHCONS ---
History of Present Illness Data of Consult Consult date: 01/17/25 Requesting Physician: Levi Sanchez MD Primary Care Provider: Niesha Munoz NP Consult Narrative Reason for consult: ISAIAH, lithium toxicity, hypernatremia History of present illness: Coverage for Dr. Ashley. Chart review done. Ms. Early 69-year-old lady with significant past medical history of CKD stage IV(under Dr. Ashley), GERD, hypothyroidism, major depressive disorder, bipolar disorder and ?? dementia presented to the emergency department today accompanied by her daughter who stated that she has been forgetful and not sure if she is taking her medications properly. She will be taking extra dose of her medications. In the last few days patient has been urinating a lot and unable to cope up with the losses. She was extremely weak and fatigued to ambulate. Daughter brought her to the ER. In the ED, her vitals were fairly stable with pulse 55, labs were significant for RBC 3.79, RDW 48.8, hemoglobin 12.0, chemistry panel revealed creatinine 2.7, GFR 19, blood sugar 114, corrected calcium 11.0, UA negative and lithium level 1.98. EKG revealed sinus bradycardia with heart rate 57, and QTc 381. Head CT was negative for acute hemorrhage, mass effect or midline shift. Chest x-ray was suspicious for early pneumonia left base Patient was given 1 L of IV normal saline bolus and started on IV normal saline 80 cc/h maintenance fluid. Patient was transferred to telemetry. Renal consultation requested for a lithium toxicity in the setting of underlying CKD and questionable need for dialysis. 01/17/2025 patient currently seen in telemetry. More alert and awake. Denies any chest pain. Denies any nausea, vomiting. Blood pressure 141/73, heart rate 85. WBC 9.7, hemoglobin 11.3, platelets 298.Sodium 147, potassium 4, [place], creatinine 2.4, calcium 10.2, phosphorus 2.8, LFTs normal, lipids normal, TSH 4.77. Urinalysis shows specific gravity 1005, urine sodium 63.8 serum level on admission was 1.98 this morning 1.60 cc:: cc: Levi Sanchez MD Review of Systems Review of Systems Narrative Review of Systems: Patient more alert and awake. Denies any chest pain. Denies any nausea, vomiting. Complaining of fatigue. Patient has been urinating a lot. Past Medical History Past Medical History NEUROLOGIC: Negative Neurological Disorders or Seizures CARDIAC: Negative Cardiac Disorders or Congestive Heart Failure RESPIRATORY: Negative Chronic Obstructive Pulmonary Disease (COPD) GENITOURINARY: Positive Genitourinary Disorders; Negative Renal Disease MUSCULOSKELETAL: Negative Musculoskeletal Disorders ENDOCRINE: Negative Diabetes Mellitus Type 1 or Diabetes Mellitus Type 2 PSYCHO/SOCIAL: Positive Bipolar Disorder and Depression OTHER HISTORY: Negative Blood Transfusions or Anesthesia Reactions Surgical History SURGICAL: Negative Joint Replacement Social History SMOKING STATUS: Never smoker SUBSTANCE USE: does not use Meds Home Medications and Allergies Home Medications ?Medication ?Instructions ?Recorded ?Confirmed ?Type mirtazapine 15 mg tablet (Remeron) 30 mg PO HS #0 tabs 07/14/15 01/16/25 History lithium carbonate 300 mg capsule 300 mg PO BID 11/17/20 01/17/25 History propranolol 10 mg tablet 10 mg PO Q6H 11/17/20 01/16/25 History mirabegron 25 mg tablet,extended 25 mg PO QDAY 11/13/23 01/16/25 History release 24 hr (Myrbetriq) quetiapine 300 mg tablet 300 mg PO HS 11/13/23 01/16/25 History temazepam 30 mg capsule 30 mg PO QDAY 11/13/23 01/16/25 History Held on 11/13/23. Instructions: Resume on 11/14/23. may resume after 24 hours vitamin B complex-vitamin C-folic 1 tab PO Q24H 01/16/25 01/17/25 History acid 0.8 mg tablet (Sho-Dorothy) Allergies Allergy/AdvReac Type Severity Reaction Status Date / Time Sulfa (Sulfonamide Allergy Unknown Verified 12/24/24 09:49 Antibiotics) Exam Vital Signs Temp Pulse Resp BP Pulse Ox O2 Del Method 36.2 C 87 26 H 132/109 H 94 L Room Air 01/17/25 08:00 01/17/25 08:35 01/17/25 08:00 01/17/25 08:35 01/17/25 08:00 01/17/25 08:00 Narrative Exam GENERAL APPEARANCE: Patient seems to be comfortable, adequately hydrated and nourished. HEENT: Looks rather euvolemic NECK: Neck supple, no JVD or bruit CARDIOVASCULAR: Heart regular, no murmurs LUNGS/CHEST: Chest clear to auscultation. No rales, rhonchi, wheezing ABDOMEN: Soft, nontender, nondistended. No masses. Normal bowel sounds. EXTREMITIES: No edema, clubbing or cyanosis. SKIN: Skin exam normal without any rashes MUSCULOSKELETAL: Musculoskeletal exam normal Neurologically alert and awake PSYCHIATRIC: Normal mood, affect LYMPHATICS: No lymphadenopathy noted Results Labs 01/17/25 02:46 01/17/25 19:00 Labs: Short CBC 01/16/25 01/17/25 Range/Units 16:27 02:46 WBC 10.7 9.7 (3.6-11.0) Thou/mm3 Hgb 12.0 11.3 L (12.0-16.0) g/dL Hct 36.2 34.1 L (36.0-46.0) % Plt Count 334 298 D (140-440) Thou/mm3 BMP 01/16/25 01/17/25 01/17/25 16:27 02:46 08:44 Sodium 139 147 H 149 H Potassium 4.1 4.0 4.3 Chloride 108 H 117 H 119 H Carbon Dioxide 23.5 23.5 21.9 BUN 20 16 15 Creatinine 2.7 H 2.4 H 2.3 H Glucose 114 H 90 95 Calcium 11.0 H 10.1 10.3 Cardiac Enzymes 01/16/25 Range/Units 16:27 Troponin I < 0.020 (0.0-0.045) ng/mL Liver Function 01/16/25 01/17/25 01/17/25 Range/Units 16:27 02:46 08:44 Total Bilirubin 0.5 0.5 (0.3-1.2) mg/dL AST 33 22 (0-34) U/L ALT 23 18 (10-49) U/L Alkaline Phosphatase 103 89 (46-116) U/L Albumin 4.6 3.9 D 3.9 (3.4-4.8) gm/dL Urine 01/16/25 Range/Units 17:51 Urine Color Colorless A (Lt Yel-Yel) Urine Clarity Clear (Clear/Hazy) Urine pH 6.0 (5.0-7.0) Ur Specific [place] 1.005 (1.001-1.035) Urine Protein Negative (Neg - Trace) Urine Glucose (UA) Negative (Negative) ABG Interpretation ABG results: 01/16/25 16:27 VBG pH 7.31 L VBG pCO2 49 VBG pO2 28 VBG Base Excess -2 Assessment & Plan Assessment and plan (1) ISAIAH (acute kidney injury): Status: Acute Assessment and plan: Renal failure secondary to prerenal azotemia. Patient admits to having significant amount of urination and unable to catch up with p.o. intake. Creatinine improving. Urine sodium 63. (2) [place] toxicity: Status: Acute Assessment and plan: Patient with the lithium toxicity and altered mental status although mentation improved with IV fluids. [place] level is improving. No need for emergency dialysis. Will monitor urine output closely. (3) AMS (altered mental status): Status: Acute Assessment and plan: Altered mental status secondary to ISAIAH/lithium toxicity. Improving. Patient also on significant amount of psych medications-temazepam, Seroquel, mirtazapine. (4) Hypercalcemia: Status: Acute Assessment and plan: Of note patient seems to have hypercalcemia for years. Suspect primary hyperparathyroidism( PTH high, calcium high, phosphorus low) vs ?? tertiary hyperparathyroidism(PTH high, calcium high, phosphorus high). Patient has longstanding history of CKD stage IV . Will check intact PTH. Phosphorus 2.7. Check vitamin D levels. Agree with IV fluids (5) Hypernatremia: Status: Acute Assessment and plan: Patient noted to have worsening hypernatremia. Suspect patient has a nephrogenic DI from a underlying lithium toxicity. Will give D5W and add amiloride to blocking at current channels. Estimated free water deficit more than 2 L. Additional Assessment & Plan Additional Plan: Plan of care discussed with Dr. Oliveira Thank you Dr. Joshi for allowing me to participate in the care of Ms. Early
[2025-01-17] MEDS: hydrALAZINE INJ 20 MG/ML VIAL 10 MG IV (12:13)
[2025-01-17 12:45] LABS: Lithium 1.52 mEq/L (1.00-1.20)
[2025-01-17 14:18] LABS: Albumin, Serum 3.9 gm/dL (3.4-4.8); Anion Gap 9 (7-16); BUN/Creatinine Ratio 6 Ratio (12-20); Blood Urea Nitrogen 14 mg/dL (9-23); Calcium 10.3 mg/dL (8.3-10.6); Calcium (Corrected) 10.4 mg/dL (8.5-10.1); Carbon Dioxide 19.9 mMol/L (20.0-31.0); Chloride 121 mMol/L (98-107); Creatinine (Component) 2.2 mg/dL (0.6-1.3); Estimated Creatinine Clearance 22.6 mL/min (>60); Glucose 100 mg/dL (74-106); Osmolality,Calculated 298 (275-295); Phosphorous 2.5 mg/dL (2.4-5.1); Potassium 4.3 mMol/L (3.4-5.1); Sodium 150 mMol/L (136-145); eGFR 24 See Note
--- NOTE | 2025-01-17 14:46 | PC.SS ---
PANTRY GOODS WORKER met with pt at bedside to complete Initial Assessment. Pt lives with daughter at her house and is able to complete her ADL's with some assistance. Pt's daughter Marlen Cortes is her medical decision maker ([phone].) Pt is not diabetic or on dialysis, no DME, and pharmacy of choice is [facility] [address]. Pt's PCP is Niesha Munoz and does not have a SNF preference.
[2025-01-17] MEDS: aMILoride HCL 5 MG TABLET PO ×2 (15:06→21:19)
[2025-01-17] MEDS: DEXTROSE 5%-WATER 1,000 ML 100 ML IV (15:30)
[2025-01-17 15:46] LABS: Potassium,Urine Random < 10 mMol/L (12-62); Sodium,Urine Random 63.8 mMol/L (20.0-110.0)
[2025-01-17 16:34] LABS: Lithium 1.41 mEq/L (1.00-1.20)
[2025-01-17 19:38] LABS: Lithium 1.35 mEq/L (1.00-1.20)
[2025-01-17 20:06] LABS: Anion Gap 9 (7-16); BUN/Creatinine Ratio 6 Ratio (12-20); Blood Urea Nitrogen 14 mg/dL (9-23); Calcium 10.5 mg/dL (8.3-10.6); Calcium (Corrected) 10.5 mg/dL (8.5-10.1); Carbon Dioxide 19.6 mMol/L (20.0-31.0); Chloride 122 mMol/L (98-107); Creatinine (Component) 2.3 mg/dL (0.6-1.3); Estimated Creatinine Clearance 21.6 mL/min (>60); Glucose 118 mg/dL (74-106); Osmolality,Calculated 301 (275-295); Phosphorous 2.7 mg/dL (2.4-5.1); Potassium 3.8 mMol/L (3.4-5.1); Sodium 151 mMol/L (136-145); eGFR 23 See Note
[2025-01-17] MEDS: DEXTROSE 5%-WATER 1,000 ML 150 ML IV (21:21)
--- NOTE | 2025-01-17 23:40 | VVPN_ITS ---
Telemedicine visit statement This visit was conducted with the use of interactive audio and video telecommunications system that permits real time communication between the patient and the provider. Patient's verbal consent for virtual visit was obtained on 01/17/25 at 2340. Documentation for date of: 01/17/25 Subjective Subjective Interval history: Patient is in telemetry. No new symptoms reported. Her mental status is improving. [place] level is coming down slowly Virtual exam Vital Signs Temp Pulse Resp BP Pulse Ox O2 Del Method 97.2 F 71 18 166/88 H 96 Room Air 01/17/25 20:00 01/17/25 21:19 01/17/25 20:00 01/17/25 21:19 01/17/25 20:00 01/17/25 20:00 Objective Labs 01/17/25 02:46 01/17/25 19:00 Labs: Laboratory Results - last 24 hr 01/17/25 01/17/25 01/17/25 02:46 08:44 12:04 WBC 9.7 RBC 3.55 L Hgb 11.3 L Hct 34.1 L MCV 96 MCH 31.8 MCHC 33.1 RDW Std Deviation 49.1 H Plt Count 298 D Neut % (Auto) 60 Lymph % (Auto) 28 [place] % (Auto) 8 Eos % (Auto) 4 Baso % (Auto) 1 Neut # (Auto) 5.8 Lymph # (Auto) 2.7 [place] # (Auto) 0.8 Eos # (Auto) 0.4 Baso # (Auto) 0.1 Immature Gran # (Auto) 0.02 H Absolute Nucleated RBC 0.00 Immature Gran % 0 Nucleated RBC % 0 Sodium 147 H 149 H Potassium 4.0 4.3 Chloride 117 H 119 H Carbon Dioxide 23.5 21.9 Anion Gap 7 8 BUN 16 15 Creatinine 2.4 H 2.3 H Estim Creat Clear Calc 20.7 L 21.6 L eGFR 22 L 23 L BUN/Creatinine Ratio 7 L 7 L Glucose [address] Glu mg/dL 103 Hemoglobin A1c 5.2 Calculated Osmolality 293 296 H Calcium 10.1 10.3 Corrected Calcium 10.2 H 10.4 H Phosphorus 2.8 Magnesium 1.9 Total Bilirubin 0.5 AST 22 ALT 18 Alkaline Phosphatase 89 Total Protein 6.3 Albumin 3.9 D 3.9 Globulin 2.4 Albumin/Globulin Ratio 1.6 Triglycerides 63 Cholesterol 167 LDL Cholesterol, Calc 86 HDL Cholesterol 68 H Cholesterol/HDL Ratio 2.5 L TSH 4.77 Free T4 0.77 L Ur Random Sodium Ur Random Potassium Ur Random Chloride [place] 1.72 H 1.60 H 1.52 H 01/17/25 01/17/25 01/17/25 13:35 15:20 15:32 WBC RBC Hgb Hct MCV MCH MCHC RDW Std Deviation Plt Count Neut % (Auto) Lymph % (Auto) [place] % (Auto) Eos % (Auto) Baso % (Auto) Neut # (Auto) Lymph # (Auto) [place] # (Auto) Eos # (Auto) Baso # (Auto) Immature Gran # (Auto) Absolute Nucleated RBC Immature Gran % Nucleated RBC % Sodium 150 H Potassium 4.3 Chloride 121 H* Carbon Dioxide 19.9 L Anion Gap 9 BUN 14 Creatinine 2.2 H Estim Creat Clear Calc 22.6 L eGFR 24 L BUN/Creatinine Ratio 6 L Glucose [address] Glu mg/dL Hemoglobin A1c Calculated Osmolality 298 H Calcium 10.3 Corrected Calcium 10.4 H Phosphorus 2.5 Magnesium Total Bilirubin AST ALT Alkaline Phosphatase Total Protein Albumin 3.9 Globulin Albumin/Globulin Ratio Triglycerides Cholesterol LDL Cholesterol, Calc HDL Cholesterol Cholesterol/HDL Ratio TSH Free T4 Ur Random Sodium 63.8 Ur Random Potassium < 10 L Ur Random Chloride 51.0 L [place] 1.41 H 01/17/25 19:00 WBC RBC Hgb Hct MCV MCH MCHC RDW Std Deviation Plt Count Neut % (Auto) Lymph % (Auto) [place] % (Auto) Eos % (Auto) Baso % (Auto) Neut # (Auto) Lymph # (Auto) [place] # (Auto) Eos # (Auto) Baso # (Auto) Immature Gran # (Auto) Absolute Nucleated RBC Immature Gran % Nucleated RBC % Sodium 151 H Potassium 3.8 D Chloride 122 H* Carbon Dioxide 19.6 L Anion Gap 9 BUN 14 Creatinine 2.3 H Estim Creat Clear Calc 21.6 L eGFR 23 L BUN/Creatinine Ratio 6 L Glucose [address] Glu mg/dL Hemoglobin A1c Calculated Osmolality 301 H Calcium 10.5 Corrected Calcium 10.5 H Phosphorus 2.7 Magnesium Total Bilirubin AST ALT Alkaline Phosphatase Total Protein Albumin 4.0 Globulin Albumin/Globulin Ratio Triglycerides Cholesterol LDL Cholesterol, Calc HDL Cholesterol Cholesterol/HDL Ratio TSH Free T4 Ur Random Sodium Ur Random Potassium Ur Random Chloride [place] 1.35 H ABG Interpretation ABG results: 01/16/25 16:27 VBG pH 7.31 L VBG pCO2 49 VBG pO2 28 VBG Base Excess -2 Assessment & Plan Problem List (1) AMS (altered mental status): Status: Acute Assessment and plan: Likely metabolic: Drug-induced, hypernatremia, hypercalcemia, acute renal failure Improving Nephrology on board (2) [place] toxicity: Status: Acute Assessment and plan: Continue to check the lithium level And restart at the low dose
[2025-01-18] VITALS (12 sets, daily range): BP systolic 111–173; BP diastolic 62–93; PULSE 42–125; RESP 17–26; TEMP 36.2–36.7; O2SAT 98–99; BMI 29.4
[2025-01-18] MEDS: ACETAMINOPHEN 325 MG TABLET 650 MG PO (00:20)
[2025-01-18] MEDS: PROPRANOLOL 10 MG TABLET PO ×4 (02:52→20:43)
[2025-01-18] MEDS: DEXTROSE 5%-WATER 1,000 ML 150 ML IV ×2 (02:52→13:34)
[2025-01-18] MEDS: aMILoride HCL 5 MG TABLET PO ×2 (08:00→20:42)
--- NOTE | 2025-01-18 08:00 | XR_ITS ---
Examination: Retroperitoneal ultrasound, complete Technique: Multiple high resolution grayscale images of the retroperitoneum obtained, including kidneys and bladder. Exam date and time:January 18, 2025 2017 hours INDICATIONS: Acute renal insufficiency on laboratory examination January 17, 2025 FINDINGS: Right kidney 9.9 cm cortex 1.6 cm Small benign renal cysts Left kidney 8.0 cm renal cortex 0.9 cm [place] small subcentimeters cysts Moderate bilateral renal parenchymal scar formation No hydronephrosis No bladder mass or bladder calculi Bladder prevoid volume 128 cc IMPRESSION: Small kidneys with bilateral renal cortical thinning Moderate bilateral renal parenchymal scar formation
[2025-01-18 08:07] LABS: Basophils % (Auto) 0 % (0-2.5); Eosinophils # (Auto) 0.2 Thou/mm3 (0.0-0.5); Eosinophils % (Auto) 2 % (0-10); Hematocrit 36.1 % (36.0-46.0); Hemoglobin 12.1 g/dL (12.0-16.0); Immature Granulocytes % (Auto) 0 % (0-0); Immature Granulocytes Auto 0.02 Thou/mm3 (0.00-0.00); Lymphocytes # (Auto) 2.3 Thou/mm3 (1.0-4.8); Lymphocytes % (Auto) 21 % (10-50); Mean Corpuscular HGB Conc 33.5 g/dl (31.0-37.0); Mean Corpuscular Hemoglobin 31.6 pg (25.0-35.0); Mean Corpuscular Volume 94 fL (80-100); Monocytes # (Auto) 0.8 Thou/mm3 (0.0-0.8); Monocytes % (Auto) 7 % (0-12); Neutrophils # (Auto) 7.6 Thou/mm3 (1.8-7.7); Neutrophils % (Auto) 69 % (37-80); Nucleated Red Blood Cell % 0 /100 WBC (0); Platelet Count 251 Thou/mm3 (140-440); RDW Standard Deviation 49.1 fL (36.4-46.3); Red Blood Count 3.83 Miln/mm3 (4.00-5.20)
[2025-01-18 08:25] LABS: Lithium 1.14 mEq/L (1.00-1.20)
[2025-01-18 08:26] LABS: Alanine Aminotransferase 17 U/L (10-49); Albumin, Serum 3.9 gm/dL (3.4-4.8); Albumin/Globulin Ratio 1.4 (1.2-2.2); Alkaline Phosphatase 98 U/L (46-116); Anion Gap 9 (7-16); Aspartate Amino Transferase 24 U/L (0-34); BUN/Creatinine Ratio 5 Ratio (12-20); Bilirubin,Total 0.4 mg/dL (0.3-1.2); Blood Urea Nitrogen 12 mg/dL (9-23); Calcium 10.3 mg/dL (8.3-10.6); Calcium (Corrected) 10.4 mg/dL (8.5-10.1); Carbon Dioxide 20.4 mMol/L (20.0-31.0); Chloride 115 mMol/L (98-107); Creatinine (Component) 2.2 mg/dL (0.6-1.3); Estimated Creatinine Clearance 22.3 mL/min (>60); Globulin 2.8 gm/dL (2.3-3.5); Glucose 126 mg/dL (74-106); Magnesium 2.1 mg/dL (1.6-2.6); Osmolality,Calculated 288 (275-295); Phosphorous 2.2 mg/dL (2.4-5.1); Potassium 3.7 mMol/L (3.4-5.1); Sodium 144 mMol/L (136-145); Total Protein 6.7 gm/dL (5.7-8.2); eGFR 24 See Note
[2025-01-18 08:40] LABS: Parathyroid Hormone Intact 141.2 pg/ml (18.5-88.0)
[2025-01-18 08:48] LABS: Vitamin D 25 Hydroxy Total 20.6 ng/mL (7.3-40.2)
--- NOTE | 2025-01-18 08:57 | ESPR_ITS ---
Documentation for date of: 01/18/25 Subjective Subjective Interval history: Ms. Early 69-year-old lady with significant past medical history of CKD stage IV(under Dr. Ashley), GERD, hypothyroidism, major depressive disorder, bipolar disorder and ?? dementia presented to the emergency department today accompanied by her daughter who stated that she has been forgetful and not sure if she is taking her medications properly. She will be taking extra dose of her medications. In the last few days patient has been urinating a lot and unable to cope up with the losses. She was extremely weak and fatigued to ambulate. Daughter brought her to the ER. In the ED, her vitals were fairly stable with pulse 55, labs were significant for RBC 3.79, RDW 48.8, hemoglobin 12.0, chemistry panel revealed creatinine 2.7, GFR 19, blood sugar 114, corrected calcium 11.0, UA negative and lithium level 1.98. EKG revealed sinus bradycardia with heart rate 57, and QTc 381. Head CT was negative for acute hemorrhage, mass effect or midline shift. Chest x-ray was suspicious for early pneumonia left base Patient was given 1 L of IV normal saline bolus and started on IV normal saline 80 cc/h maintenance fluid. Patient was transferred to telemetry. Renal consultation requested for a lithium toxicity in the setting of underlying CKD and questionable need for dialysis. 01/17/2025 patient currently seen in telemetry. More alert and awake. Denies any chest pain. Denies any nausea, vomiting. Blood pressure 141/73, heart rate 85. WBC 9.7, hemoglobin 11.3, platelets 298.Sodium 147, potassium 4, [place], creatinine 2.4, calcium 10.2, phosphorus 2.8, LFTs normal, lipids normal, TSH 4.77. Urinalysis shows specific gravity 1005, urine sodium 63.8 serum level on admission was 1.98 this morning 1.60 01/18/2025 patient examined at bedside on telemetry. Mentation significantly improved. Currently asymptomatic without chest pain, N/V, or neurological deficits. Vitals relatively stable. CBC relatively normal. Sodium normal, chloride 115 improving. Renal function stable with CR 2.2, GFR 24. PTH elevated at 141.2. LITHIUM level normalized, currently 1.14. Exam Vital Signs Temp Pulse Resp BP Pulse Ox O2 Del Method 97.3 F 55 L 19 153/75 H 98 Room Air 04/07/25 08:00 01/18/25 08:00 01/18/25 08:00 01/18/25 08:00 01/18/25 08:00 01/18/25 08:00 Narrative Exam GENERAL APPEARANCE: Patient seems to be comfortable, adequately hydrated and nourished. HEENT: Looks rather euvolemic NECK: Neck supple, no JVD or bruit CARDIOVASCULAR: Heart regular, no murmurs LUNGS/CHEST: Chest clear to auscultation. No rales, rhonchi, wheezing ABDOMEN: Soft, nontender, nondistended. No masses. Normal bowel sounds. EXTREMITIES: No edema, clubbing or cyanosis. SKIN: Skin exam normal without any rashes MUSCULOSKELETAL: Musculoskeletal exam normal Neurologically alert and awake PSYCHIATRIC: Normal mood, affect LYMPHATICS: No lymphadenopathy noted Objective Labs 01/19/25 05:06 01/19/25 05:06 Labs: Laboratory Results - last 24 hr 01/17/25 01/17/25 01/17/25 08:44 12:04 13:35 WBC RBC Hgb Hct MCV MCH MCHC RDW Std Deviation Plt Count Neut % (Auto) Lymph % (Auto) [place] % (Auto) Eos % (Auto) Baso % (Auto) Neut # (Auto) Lymph # (Auto) [place] # (Auto) Eos # (Auto) Baso # (Auto) Immature Gran # (Auto) Absolute Nucleated RBC Immature Gran % Nucleated RBC % Sodium 149 H 150 H Potassium 4.3 4.3 Chloride 119 H 121 H* Carbon Dioxide 21.9 19.9 L Anion Gap 8 9 BUN 15 14 Creatinine 2.3 H 2.2 H Estim Creat Clear Calc 21.6 L 22.6 L eGFR 23 L 24 L BUN/Creatinine Ratio 7 L 6 L Glucose 95 100 Calculated Osmolality 296 H 298 H Uric Acid Calcium 10.3 10.3 Corrected Calcium 10.4 H 10.4 H Phosphorus 2.8 2.5 Magnesium Total Bilirubin AST ALT Alkaline Phosphatase Total Protein Albumin 3.9 3.9 Globulin Albumin/Globulin Ratio 25-OH Vitamin D Total Free T4 0.77 L PTH Intact Ur Random Sodium Ur Random Potassium Ur Random Chloride [place] 1.60 H 1.52 H 01/17/25 01/17/25 01/17/25 15:20 15:32 19:00 WBC RBC Hgb Hct MCV MCH MCHC RDW Std Deviation Plt Count Neut % (Auto) Lymph % (Auto) [place] % (Auto) Eos % (Auto) Baso % (Auto) Neut # (Auto) Lymph # (Auto) [place] # (Auto) Eos # (Auto) Baso # (Auto) Immature Gran # (Auto) Absolute Nucleated RBC Immature Gran % Nucleated RBC % Sodium 151 H Potassium 3.8 D [place]lor[place] 122 H* Carbon Dioxide 19.6 L Anion Gap 9 BUN 14 Creatinine 2.3 H Estim Creat Clear Calc 21.6 L eGFR 23 L BUN/Creatinine Ratio 6 L Glucose 118 H Calculated Osmolality 301 H Uric Acid Calcium 10.5 Corrected Calcium 10.5 H Phosphorus 2.7 Magnesium Total Bilirubin AST ALT Alkaline Phosphatase Total Protein Albumin 4.0 Globulin Albumin/Globulin Ratio 25-OH Vitamin D Total Free T4 PTH Intact Ur Random Sodium 63.8 Ur Random Potassium < 10 L Ur Random Chloride 51.0 L [place] 1.41 H 1.35 H 01/18/25 07:35 WBC 11.0 RBC 3.83 L Hgb 12.1 Hct 36.1 MCV 94 MCH 31.6 MCHC 33.5 RDW Std Deviation 49.1 H Plt Count 251 D Neut % (Auto) 69 Lymph % (Auto) 21 [place] % (Auto) 7 Eos % (Auto) 2 Baso % (Auto) 0 Neut # (Auto) 7.6 Lymph # (Auto) 2.3 [place] # (Auto) 0.8 Eos # (Auto) 0.2 Baso # (Auto) 0.0 Immature Gran # (Auto) 0.02 H Absolute Nucleated RBC 0.00 Immature Gran % 0 Nucleated RBC % 0 Sodium 144 Potassium 3.7 Chloride 115 H Carbon Dioxide 20.4 Anion Gap 9 BUN 12 Creatinine 2.2 H Estim Creat Clear Calc 22.3 L eGFR 24 L BUN/Creatinine Ratio 5 L Glucose 126 H Calculated Osmolality 288 Uric Acid 7.0 Calcium 10.3 Corrected Calcium 10.4 H Phosphorus 2.2 L Magnesium 2.1 Total Bilirubin 0.4 AST 24 ALT 17 Alkaline Phosphatase 98 Total Protein 6.7 Albumin 3.9 Globulin 2.8 Albumin/Globulin Ratio 1.4 25-OH Vitamin D Total 20.6 Free T4 PTH Intact 141.2 H Ur Random Sodium Ur Random Potassium Ur Random Chloride [place] 1.14 ABG Interpretation ABG results: 01/16/25 16:27 VBG pH 7.31 L VBG pCO2 49 VBG pO2 28 VBG Base Excess -2 Quality Measures Quality Measures none Advance care planning discussed with:: patient Assessment & Plan Assessment Current Active Medications: Generic Name Dose Route Start Last Admin Trade Name Freq PRN Reason Stop Dose Admin Acetaminophen 650 mg 01/17/25 01:45 01/18/25 00:20 Acetaminophen 325 Mg Tablet PO 02/16/25 01:44 650 mg Q6H PRN Administration PAIN SCALE 1-3 (mild Amiloride HCl 5 mg 01/17/25 14:30 01/18/25 08:00 Amiloride Hcl 5 Mg Tablet PO 02/16/25 14:29 5 mg BID CHERYL Administration Heparin Sodium (Porcine) 5,000 unit 01/17/25 06:00 01/18/25 06:05 Heparin Sod Inj 5000 Unit/Ml Vial SC 01/31/25 05:59 Not Given Q8HR CHERYL Dextrose 1,000 mls @ 150 mls/hr 01/17/25 20:12 01/18/25 02:52 D5w IV 02/16/25 20:11 150 mls/hr .Q6H40M CHERYL Administration Mirtazapine 30 mg 01/17/25 02:15 01/17/25 21:20 Mirtazapine 15 Mg Tablet PO 02/16/25 02:14 30 mg HS CHERYL Administration Ondansetron HCl 4 mg 01/17/25 01:40 Ondansetron Inj 2 Mg/Ml Inj 2 Ml IV 02/16/25 01:39 Q6H PRN NAUSEA OR VOMITING Protocol Propranolol HCl 10 mg 01/17/25 02:15 01/18/25 08:00 Propranolol 10 Mg Tablet PO 02/16/25 02:14 10 mg Q6H CHERYL Administration Plan Acute kidney injury CKD stage IV [place] overdose Prerenal azotemia continues to have frequent urination. Urine output 2500 cc overnight. No signs of dehydration on exam. Urine sodium was 63. Renal function stable, creatinine 2.2, EGFR 22.3. LITHIUM level normalized, currently asymptomatic. ? Continue fluids ? Renally dose meds, avoid overdiuresis and NEPHROTOXINS ? Daily CMP Hypercalcemia Of note patient seems to have hypercalcemia for years. Suspect primary hyperparathyroidism( PTH high, calcium high, phosphorus low) vs ?? tertiary hyperparathyroidism(PTH high, calcium high, phosphorus high). Patient has longstanding history of CKD stage IV. Intact PTH 141.2 elevated, possibly related to longstanding LITHIUM use. ? Pending VITAMIN D level ? 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 On D5W and AMILORIDE to blocking at current channels. Free water deficit 1.9 L. Goal sodium 136. ? Continue D5W ? Continue AMILORIDE Bipolar disorder ? Avoid LITHIUM for now Major depressive disorder Hypothyroidism, by history Possible dementia ? Managed per primary team Appreciate the opportunity to participate in this patient's care. Patient case was discussed with attending, Dr. Mckeon. Trinidad Oliver DO PGYI Attending Provider Attestation/Addendum Patient seen and examined with resident physician Dr. Abdi. Note reviewed, agree with findings and recommendations. Patient admitted with weakness, ISAIAH, lithium toxicity. Marked improvement with fluids. Sodium seems to be better with D5W and amiloride. 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
--- NOTE | 2025-01-18 09:34 | PC.SS ---
Follow up note: Dr. Mckeon and Dr. Thayer are consulting. Pt is on On IV fluids
--- NOTE | 2025-01-18 10:10 | CHAP ---
Patient was visited by the Spiritual Care Volunteer who prayed for them. (Volunteer was in the hospital from 09:00-10:10).
--- NOTE | 2025-01-18 11:05 | PD.RESPRO ---
Documentation for date of: 01/18/25 Subjective Subjective Interval history: Patient seen and examined at bedside, labs and vitals reviewed. Patient's lithium level has improved significantly, lithium level this morning 1.14. Patient is awake, alert and oriented x 3, talking to her son. Patient's hyponatremia has improved, sodium this morning 144. Will continue D5W 150 cc/h, goal sodium 136. Will continue amiloride, patient will be started on amlodipine 5 mg for hypertension Neurology recommended continuing home medication Seroquel 300 mg at bedtime. Will resume lithium 150 mg twice daily in a.m. Exam Vital Signs Temp Pulse Resp BP Pulse Ox O2 Del Method 97.3 F 55 L 19 153/75 H 98 Room Air 01/18/25 08:00 01/18/25 08:00 01/18/25 08:00 01/18/25 08:00 01/18/25 08:00 01/18/25 08:00 Narrative Exam Physical Exam General: Awake and in no acute distress. Conversational and non-toxic appearing. HEENT: Normocephalic, atraumatic, mucous membranes moist. Heart: Regular rate and rhythm, no murmurs. Lungs: Clear to auscultation with no wheezing or crackles. Abdomen: Soft, nondistended, nontender, positive bowel sounds. ?No guarding or rebound tenderness. Neurologic: Alert and oriented x4, tremors noted bilateral upper and lower extremities, does have lower extremity weakness 4/5 Extremities: Trace lower extremity edema. Skin: No rash or ecchymoses. Objective Labs 01/19/25 05:06 01/19/25 05:06 Labs: Laboratory Results - last 24 hr 01/17/25 01/17/25 01/17/25 12:04 13:35 15:20 WBC RBC Hgb Hct MCV MCH MCHC RDW Std Deviation Plt Count Neut % (Auto) Lymph % (Auto) [place] % (Auto) Eos % (Auto) Baso % (Auto) Neut # (Auto) Lymph # (Auto) [place] # (Auto) Eos # (Auto) Baso # (Auto) Immature Gran # (Auto) Absolute Nucleated RBC Immature Gran % Nucleated RBC % Sodium 150 H Potassium 4.3 Chloride 121 H* Carbon Dioxide 19.9 L Anion Gap 9 BUN 14 Creatinine 2.2 H Estim Creat Clear Calc 22.6 L eGFR 24 L BUN/Creatinine Ratio 6 L Glucose 100 Calculated Osmolality 298 H Uric Acid Calcium 10.3 Corrected Calcium 10.4 H Phosphorus 2.5 Magnesium Total Bilirubin AST ALT Alkaline Phosphatase Total Protein Albumin 3.9 Globulin Albumin/Globulin Ratio 25-OH Vitamin D Total PTH Intact Ur Random Sodium 63.8 Ur Random Potassium < 10 L Ur Random Chloride 51.0 L [place] 1.52 H 01/17/25 01/17/25 01/18/25 15:32 19:00 07:35 WBC 11.0 RBC 3.83 L Hgb 12.1 Hct 36.1 MCV 94 MCH 31.6 MCHC 33.5 RDW Std Deviation 49.1 H Plt Count 251 D Neut % (Auto) 69 Lymph % (Auto) 21 [place] % (Auto) 7 Eos % (Auto) 2 Baso % (Auto) 0 Neut # (Auto) 7.6 Lymph # (Auto) 2.3 [place] # (Auto) 0.8 Eos # (Auto) 0.2 Baso # (Auto) 0.0 Immature Gran # (Auto) 0.02 H Absolute Nucleated RBC 0.00 Immature Gran % 0 Nucleated RBC % 0 Sodium 151 H 144 Potassium 3.8 D 3.7 Chloride 122 H* 115 H Carbon Dioxide 19.6 L 20.4 Anion Gap 9 9 BUN 14 12 Creatinine 2.3 H 2.2 H Estim Creat Clear Calc 21.6 L 22.3 L eGFR 23 L 24 L BUN/Creatinine Ratio 6 L 5 L Glucose 118 H 126 H Calculated Osmolality 301 H 288 Uric Acid 7.0 Calcium 10.5 10.3 Corrected Calcium 10.5 H 10.4 H Phosphorus 2.7 2.2 L Magnesium 2.1 Total Bilirubin 0.4 AST 24 ALT 17 Alkaline Phosphatase 98 Total Protein 6.7 Albumin 4.0 3.9 Globulin 2.8 Albumin/Globulin Ratio 1.4 25-OH Vitamin D Total 20.6 PTH Intact 141.2 H Ur Random Sodium Ur Random Potassium Ur Random Chloride [place] 1.41 H 1.35 H 1.14 ABG Interpretation ABG results: 01/16/25 16:27 VBG pH 7.31 L VBG pCO2 49 VBG pO2 28 VBG Base Excess -2 Quality Measures Quality Measures none Advance care planning discussed with:: patient Assessment & Plan Assessment Current Active Medications: Generic Name Dose Route Start Last Admin Trade Name Freq PRN Reason Stop Dose Admin Acetaminophen 650 mg 01/17/25 01:45 01/18/25 00:20 Acetaminophen 325 Mg Tablet PO 02/16/25 01:44 650 mg Q6H PRN Administration PAIN SCALE 1-3 (mild Amiloride HCl 5 mg 01/17/25 14:30 01/18/25 08:00 Amiloride Hcl 5 Mg Tablet PO 02/16/25 14:29 5 mg BID CHERYL Administration Amlodipine Besylate 5 mg 01/18/25 10:15 Amlodipine Besylate 5 Mg Tablet PO 02/17/25 10:14 QDAY CHERYL Heparin Sodium (Porcine) 5,000 unit 01/17/25 06:00 01/18/25 06:05 Heparin Sod Inj 5000 Unit/Ml Vial SC 01/31/25 05:59 Not Given Q8HR CHERYL Dextrose 1,000 mls @ 150 mls/hr 01/17/25 20:12 01/18/25 02:52 D5w IV 02/16/25 20:11 150 mls/hr .Q6H40M CHERYL Administration Mirtazapine 30 mg 01/17/25 02:15 01/17/25 21:20 Mirtazapine 15 Mg Tablet PO 02/16/25 02:14 30 mg HS CHERYL Administration Ondansetron HCl 4 mg 01/17/25 01:40 Ondansetron Inj 2 Mg/Ml Inj 2 Ml IV 02/16/25 01:39 Q6H PRN NAUSEA OR VOMITING Protocol Propranolol HCl 10 mg 01/17/25 02:15 01/18/25 08:00 Propranolol 10 Mg Tablet PO 02/16/25 02:14 10 mg Q6H CHERYL Administration Quetiapine Fumarate 300 mg 01/18/25 21:00 Quetiapine Fumarate 100 Mg Tablet PO 02/17/25 20:59 HS CHERYL Plan Assessment and plan: Summary: Ms. Early is a 69-year-old female with significant past medical history of CKD stage IV, obesity, GERD, hypothyroidism, major depressive disorder, bipolar disorder and possible dementia presented to ED along with her daughter with chief complaint of altered mental status for 1 day. Patient admitted to telemetry unit for further management of acute encephalopathy secondary to lithium toxicity and mild hypercalcemia in the setting of ISAIAH on CKD stage IV. #Acute encephalopathy, resolved Likely multifactorial 2/2 #Acute on chronic lithium toxicity #Nephrogenic diabetes insipidus #Hypernatremia, resolved #Hypercalcemia, resolving #Dehydration The patient was brought into the ED with chief complaint of altered mental status, and she has been forgetful recently and inconsistent with medication intake, possibly has underlying dementia reports taking multiple pills at times and also missing pills at times. Complains of polyuria. Presented with lithium level of 1.98, and corrected calcium level of 11.0. CT head was negative for acute hemorrhage, midline shift or mass effect The patient received 1 L IV normal saline bolus and was started on IV normal saline 80 cc/h maintenance fluid in the ED. 01/18-patient was started on half NS yesterday, continued to have hyponatremia. Was eventually started on D5W 100 cc, continue to have hypernatremia, free water deficit was about 2 L. Overnight patient received D5W and sodium improved to 144. Plan: -Started on D5W 200 cc/h -Strict intake and output -Goal urine output about 3 to 5 L in 24 hours -Will resume lithium in AM at 150 mg twice daily -Will continue to maintain potassium greater than 4 and magnesium greater than 2, to prevent arrhythmia or QTc prolongation -Will repeat renal panel in afternoon today, will follow sodium -Nephrology consulted, appreciate recommendations -Neurology consulted, appreciate recommendations for underlying dementia and psychiatric medications #ISAIAH on CKD stage IV Likely prerenal secondary to dehydration secondary to lithium induced nephrogenic diabetes insipidus Patient reported that she has been urinating a lot, and trying to rehydrate herself, but has not been able to drink enough -Will repeat renal panel later today -Avoid nephrotoxic drugs -Renally dose medications -Follow urine electrolytes and osmolality #Major depressive disorder #Bipolar disorder -Resumed mirtazapine 30 mg p.o. at bedtime for MDD -Resumed quetiapine 300 mg at bedtime #Hypothyroidism, by history Not on any medications outpatient, TSH 4.77, free T4 0.77 -Consider outpatient follow-up #Possible dementia Patient reported that she has been forgetful recently, and has been missing her medications. -Neurology consulted, appreciate recommendations DVT prophylaxis: Heparin GI prophylaxis: Not indicated Diet: N.p.o., pending swallow Lines: Peripheral IV Code status: Full code Case discussed with Attending Dr. cMdaniel and Dr. Castro PGY2. Amilcar Oliveira PGY1 Disclaimer: This note was dictated by speech recognition. Minor errors in microbiological analyst may be present due to voice recognition software. Attending Provider Attestation/Addendum I reviewed labs, imaging, EKG, home medications and prior available records. Face to face evaluation was performed by me. I have personally examined the patient and discussed assessment and plan with the IM team. I reviewed the resident note and agree with the plan with exceptions as below. Acute encephalopathy CKD stage IIIb Hypernatremia Bipolar disorder CT head is negative for acute changes Discussed with neurology: Resumed quetiapine Sodium improved. Continue D5W Resumed lithium. Follow-up level Consulted nephrology for further recommendations Monitor kidney function: Stable Outpatient follow-up with psychiatry Added amlodipine 5 mg
[2025-01-18 13:14] LABS: Lithium 1.04 mEq/L (1.00-1.20)
[2025-01-18 14:20] LABS: Albumin, Serum 3.8 gm/dL (3.4-4.8); Anion Gap 12 (7-16); BUN/Creatinine Ratio 6 Ratio (12-20); Blood Urea Nitrogen 12 mg/dL (9-23); Calcium 9.9 mg/dL (8.3-10.6); Calcium (Corrected) 10.1 mg/dL (8.5-10.1); Carbon Dioxide 16.8 mMol/L (20.0-31.0); Chloride 113 mMol/L (98-107); Creatinine (Component) 2.1 mg/dL (0.6-1.3); Estimated Creatinine Clearance 23.4 mL/min (>60); Glucose 170 mg/dL (74-106); Osmolality,Calculated 286 (275-295); Potassium 4.3 mMol/L (3.4-5.1); Sodium 142 mMol/L (136-145); eGFR 25 See Note
[2025-01-18] MEDS: amLODIPine BESYLATE 5 MG TABLET PO (14:30)
[2025-01-18] MEDS: HEPARIN SOD INJ 5000 UNIT/ML VIAL SC ×2 (14:31→22:13)
[2025-01-18] MEDS: QUEtiapine FUMARATE 100 MG TABLET 300 MG PO (20:42)
[2025-01-18] MEDS: MIRTAZAPINE 15 MG TABLET 30 MG PO (20:43)
[2025-01-19] VITALS (9 sets, daily range): BP systolic 125–151; BP diastolic 72–97; PULSE 53–73; RESP 14–28; TEMP 36.1–36.7; O2SAT 96–98; BMI 31.0
[2025-01-19] MEDS: DEXTROSE 5%-WATER 1,000 ML 150 ML IV ×2 (02:02→10:10)
[2025-01-19] MEDS: PROPRANOLOL 10 MG TABLET PO ×3 (03:09→15:19)
[2025-01-19 05:49] LABS: Basophils # (Auto) 0.1 Thou/mm3 (0.0-0.2); Basophils % (Auto) 1 % (0-2.5); Eosinophils # (Auto) 0.3 Thou/mm3 (0.0-0.5); Eosinophils % (Auto) 4 % (0-10); Hematocrit 36.8 % (36.0-46.0); Hemoglobin 12.3 g/dL (12.0-16.0); Immature Granulocytes % (Auto) 0 % (0-0); Immature Granulocytes Auto 0.03 Thou/mm3 (0.00-0.00); Lymphocytes % (Auto) 32 % (10-50); Mean Corpuscular HGB Conc 33.4 g/dl (31.0-37.0); Mean Corpuscular Hemoglobin 31.3 pg (25.0-35.0); Mean Corpuscular Volume 94 fL (80-100); Monocytes # (Auto) 0.8 Thou/mm3 (0.0-0.8); Monocytes % (Auto) 8 % (0-12); Neutrophils # (Auto) 5.2 Thou/mm3 (1.8-7.7); Neutrophils % (Auto) 55 % (37-80); Nucleated Red Blood Cell % 0 /100 WBC (0); Platelet Count 281 Thou/mm3 (140-440); RDW Standard Deviation 48.5 fL (36.4-46.3); Red Blood Count 3.93 Miln/mm3 (4.00-5.20); White Blood Count 9.5 Thou/mm3 (3.6-11.0)
[2025-01-19] MEDS: HEPARIN SOD INJ 5000 UNIT/ML VIAL SC (05:49)
[2025-01-19 06:20] LABS: Alanine Aminotransferase 17 U/L (10-49); Albumin, Serum 3.8 gm/dL (3.4-4.8); Albumin/Globulin Ratio 1.5 (1.2-2.2); Alkaline Phosphatase 96 U/L (46-116); Anion Gap 9 (7-16); Aspartate Amino Transferase 20 U/L (0-34); BUN/Creatinine Ratio 4 Ratio (12-20); Bilirubin,Total 0.3 mg/dL (0.3-1.2); Blood Urea Nitrogen 8 mg/dL (9-23); Calcium 10.1 mg/dL (8.3-10.6); Calcium (Corrected) 10.3 mg/dL (8.5-10.1); Carbon Dioxide 19.8 mMol/L (20.0-31.0); Chloride 114 mMol/L (98-107); Creatinine (Component) 1.9 mg/dL (0.6-1.3); Estimated Creatinine Clearance 26.5 mL/min (>60); Globulin 2.5 gm/dL (2.3-3.5); Glucose 125 mg/dL (74-106); Magnesium 1.9 mg/dL (1.6-2.6); Osmolality,Calculated 284 (275-295); Phosphorous 2.4 mg/dL (2.4-5.1); Potassium 3.7 mMol/L (3.4-5.1); Sodium 143 mMol/L (136-145); Total Protein 6.3 gm/dL (5.7-8.2); eGFR 29 See Note
[2025-01-19 07:44] LABS: Lithium 0.89 mEq/L (1.00-1.20)
[2025-01-19] MEDS: amLODIPine BESYLATE 5 MG TABLET PO (08:42)
[2025-01-19] MEDS: aMILoride HCL 5 MG TABLET PO (08:42)
--- NOTE | 2025-01-19 09:44 | ESPR_ITS ---
Documentation for date of: 01/19/25 Subjective Subjective Interval history: Ms. Early 69-year-old lady with significant past medical history of CKD stage IV(under Dr. Ashley), GERD, hypothyroidism, major depressive disorder, bipolar disorder and ?? dementia presented to the emergency department today accompanied by her daughter who stated that she has been forgetful and not sure if she is taking her medications properly. She will be taking extra dose of her medications. In the last few days patient has been urinating a lot and unable to cope up with the losses. She was extremely weak and fatigued to ambulate. Daughter brought her to the ER. In the ED, her vitals were fairly stable with pulse 55, labs were significant for RBC 3.79, RDW 48.8, hemoglobin 12.0, chemistry panel revealed creatinine 2.7, GFR 19, blood sugar 114, corrected calcium 11.0, UA negative and lithium level 1.98. EKG revealed sinus bradycardia with heart rate 57, and QTc 381. Head CT was negative for acute hemorrhage, mass effect or midline shift. Chest x-ray was suspicious for early pneumonia left base Patient was given 1 L of IV normal saline bolus and started on IV normal saline 80 cc/h maintenance fluid. Patient was transferred to telemetry. Renal consultation requested for a lithium toxicity in the setting of underlying CKD and questionable need for dialysis. 01/17/2025 patient currently seen in telemetry. More alert and awake. Denies any chest pain. Denies any nausea, vomiting. Blood pressure 141/73, heart rate 85. WBC 9.7, hemoglobin 11.3, platelets 298.Sodium 147, potassium 4, Loraine, creatinine 2.4, calcium 10.2, phosphorus 2.8, LFTs normal, lipids normal, TSH 4.77. Urinalysis shows specific gravity 1005, urine sodium 63.8 serum level on admission was 1.98 this morning 1.60 01/18/2025 patient examined at bedside on telemetry. Mentation significantly improved. Currently asymptomatic without chest pain, N/V, or neurological deficits. Vitals relatively stable. CBC relatively normal. Sodium normal, chloride 115 improving. Renal function stable with CR 2.2, GFR 24. PTH elevated at 141.2. LITHIUM level normalized, currently 1.14. 01/19/2025 Examined at bedside. Mentation improved, A&OX3. No signs of neurological deficits. Denies fever, chills, headaches, chest pain, sob, cough, GI or urinary symptoms. LITHIUM 0.89. CBC WNL. Renal function improving, CR 1.9, EGFR 29. Exam Vital Signs Temp Pulse Resp BP Pulse Ox O2 Del Method 97.2 F 72 18 151/95 H 97 Room Air 01/19/25 03:13 01/19/25 08:42 01/19/25 03:13 01/19/25 08:42 01/19/25 03:13 01/19/25 03:13 Narrative Exam GENERAL APPEARANCE: Patient seems to be comfortable, adequately hydrated and nourished. HEENT: Looks rather euvolemic NECK: Neck supple, no JVD or bruit CARDIOVASCULAR: Heart regular, no murmurs LUNGS/CHEST: Chest clear to auscultation. No rales, rhonchi, wheezing ABDOMEN: Soft, nontender, nondistended. No masses. Normal bowel sounds. EXTREMITIES: No edema, clubbing or cyanosis. SKIN: Skin exam normal without any rashes MUSCULOSKELETAL: Musculoskeletal exam normal Neurologically alert and awake PSYCHIATRIC: Normal mood, affect LYMPHATICS: No lymphadenopathy noted Objective Labs 01/19/25 05:06 01/19/25 05:06 Labs: Laboratory Results - last 24 hr 01/18/25 01/19/25 01/19/25 12:43 05:06 06:40 WBC 9.5 RBC 3.93 L Hgb 12.3 Hct 36.8 MCV 94 MCH 31.3 MCHC 33.4 RDW Std Deviation 48.5 H Plt Count 281 D Neut % (Auto) 55 Lymph % (Auto) 32 [place] % (Auto) 8 Eos % (Auto) 4 Baso % (Auto) 1 Neut # (Auto) 5.2 Lymph # (Auto) 3.0 [place] # (Auto) 0.8 Eos # (Auto) 0.3 Baso # (Auto) 0.1 Immature Gran # (Auto) 0.03 H Absolute Nucleated RBC 0.00 Immature Gran % 0 Nucleated RBC % 0 Sodium 142 143 Potassium 4.3 D 3.7 D Chloride 113 H 114 H Carbon Dioxide 16.8 L 19.8 L Anion Gap 12 9 BUN 12 8 L Creatinine 2.1 H 1.9 H Estim Creat Clear Calc 23.4 L 26.5 L eGFR 25 L 29 L BUN/Creatinine Ratio 6 L 4 L Glucose 170 H 125 H Calculated Osmolality 286 284 Calcium 9.9 10.1 Corrected Calcium 10.1 10.3 H Phosphorus 2.0 L 2.4 Magnesium 1.9 Total Bilirubin 0.3 AST 20 ALT 17 Alkaline Phosphatase 96 Total Protein 6.3 Albumin 3.8 3.8 Globulin 2.5 Albumin/Globulin Ratio 1.5 [place] 1.04 0.89 L ABG Interpretation ABG results: 01/16/25 16:27 VBG pH 7.31 L VBG pCO2 49 VBG pO2 28 VBG Base Excess -2 Quality Measures Quality Measures none Advance care planning discussed with:: patient Assessment & Plan Assessment Current Active Medications: Generic Name Dose Route Start Last Admin Trade Name Freq PRN Reason Stop Dose Admin Acetaminophen 650 mg 01/17/25 01:45 01/18/25 00:20 Acetaminophen 325 Mg Tablet PO 02/16/25 01:44 650 mg Q6H PRN Administration PAIN SCALE 1-3 (mild Amiloride HCl 5 mg 01/17/25 14:30 01/19/25 08:42 Amiloride Hcl 5 Mg Tablet PO 02/16/25 14:29 5 mg BID CHERYL Administration Amlodipine Besylate 5 mg 01/18/25 10:15 01/19/25 08:42 Amlodipine Besylate 5 Mg Tablet PO 02/17/25 10:14 5 mg QDAY CHERYL Administration Heparin Sodium (Porcine) 5,000 unit 01/17/25 06:00 01/19/25 05:49 Heparin Sod Inj 5000 Unit/Ml Vial SC 01/31/25 05:59 5,000 unit Q8HR CHERYL Administration Dextrose 1,000 mls @ 150 mls/hr 01/17/25 20:12 01/19/25 02:02 D5w IV 02/16/25 20:11 150 mls/hr .Q6H40M CHERYL Administration [place] Carbonate 150 mg 01/19/25 09:30 [place] Carb 150 Mg Capsule PO 02/18/25 09:29 BID CHERYL Protocol Mirtazapine 30 mg 01/17/25 02:15 01/18/25 20:43 Mirtazapine 15 Mg Tablet PO 02/16/25 02:14 30 mg HS CHERYL Administration Ondansetron HCl 4 mg 01/17/25 01:40 Ondansetron Inj 2 Mg/Ml Inj 2 Ml IV 02/16/25 01:39 Q6H PRN NAUSEA OR VOMITING Protocol Propranolol HCl 10 mg 01/17/25 02:15 01/19/25 08:42 Propranolol 10 Mg Tablet PO 02/16/25 02:14 10 mg Q6H CHERYL Administration Quetiapine Fumarate 300 mg 01/18/25 21:00 01/18/25 20:42 Quetiapine Fumarate 100 Mg Tablet PO 02/17/25 20:59 300 mg HS CHERYL Administration Plan Patient admitted for ISAIAH in settings of LITHIUM toxicity. Renal function is improving. May discharge on AMILORIDE 5 mg p.o. QID. May resume LITHIUM at 70% original dose. Follow-up with PCP, psych and nephrology in 1-2 weeks. Acute kidney injury CKD stage IV [place] overdose Prerenal azotemia continues to have frequent urination. Urine output 2500 cc overnight. No signs of dehydration on exam. Urine sodium was 63. Renal function improving, CR 1.9, EGFR 29. LITHIUM level normalized, currently asymptomatic. ? Continue fluids ? May resume LITHIUM at 70% home dose ? Renally dose meds, avoid overdiuresis and NEPHROTOXINS ? Daily CMP Hypercalcemia (improving) Of note patient seems to have hypercalcemia for years. Suspect primary hyperparathyroidism( PTH high, calcium high, phosphorus low) vs ?? tertiary hyperparathyroidism(PTH high, calcium high, phosphorus high). Patient has longstanding history of CKD stage IV. Intact PTH 141.2 elevated, possibly related to longstanding LITHIUM use. ? Pending VITAMIN D level ? 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 On D5W and AMILORIDE to blocking at current channels. Free water deficit 1.9 L. Goal sodium 136. ? Continue D5W ? Discharged on AMILORIDE QID Bipolar disorder ? Avoid LITHIUM for now Major depressive disorder Hypothyroidism, by history Possible dementia ? Managed per primary team Appreciate the opportunity to participate in this patient's care. Patient case was discussed with attending, Dr. Mckeon. Trinidad Oliver DO PGYI Attending Provider Attestation/Addendum Patient seen and examined with resident physician Dr. Abdi. Note reviewed, agree with findings and recommendations. Patient admitted with weakness, ISAIAH, lithium toxicity. Marked improvement with fluids. Sodium seems to be better with D5W and amiloride. 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 Back on lithium and added amiloride. Follow-up with Dr. Ashley in the outpatient setting.
--- NOTE | 2025-01-19 10:02 | PC.RT ---
tele speech consult completed without complications.
[2025-01-19] MEDS: LITHIUM CARB 150 MG CAPSULE PO (10:10)
--- NOTE | 2025-01-19 10:31 | CHAP ---
Patient was visited by a Spiritual Care Volunteer on 01/19/2025 between 0900 and 0928 and received comfort, encouragement and/or prayer.
--- NOTE | 2025-01-19 11:31 | PC.NURSE ---
Pt HR lowest 48 sustained in 50s, pt not complaining of any symptoms, Dr. Oliveira notified
--- NOTE | 2025-01-19 11:34 | PD.RESPRO ---
Documentation for date of: 01/19/25 Subjective Subjective Interval history: Patient seen and examined at bedside. No acute overnight events. Mentation seems to be back at baseline, patient is AAOx3 this morning. [place] level at 0.89, medication restarted. Exam Vital Signs Temp Pulse Resp BP Pulse Ox O2 Del Method 98.1 F 72 18 151/95 H 97 Room Air 01/19/25 08:00 01/19/25 08:42 01/19/25 08:00 01/19/25 08:42 01/19/25 08:00 01/19/25 08:00 Narrative Exam GENERAL: AAOX3, follows commands, conversational NEURO: COAL WEIGHER grossly intact, moves extremities x4 HEENT: Moist mucosa. Eyes open, symmetrical, & clear CARDIO: No chest pain on palpation. Heart RRR, no obvious murmurs PULM: No noted coughing/dyspnea. Lungs CTA B/L GI: Abdomen soft, nondistended, no pain on palpation. BSx4 URO/AIR COMMODORE:: No further abnormalities noted. SKIN/MSK/EXT: No wounds/rashes/edema/amputations, no pain on palpation. Pedal pulses present B/L Objective Labs 01/19/25 05:06 01/19/25 05:06 Labs: Laboratory Results - last 24 hr 01/18/25 01/19/25 01/19/25 12:43 05:06 06:40 WBC 9.5 RBC 3.93 L Hgb 12.3 Hct 36.8 MCV 94 MCH 31.3 MCHC 33.4 RDW Std Deviation 48.5 H Plt Count 281 D Neut % (Auto) 55 Lymph % (Auto) 32 [place] % (Auto) 8 Eos % (Auto) 4 Baso % (Auto) 1 Neut # (Auto) 5.2 Lymph # (Auto) 3.0 [place] # (Auto) 0.8 Eos # (Auto) 0.3 Baso # (Auto) 0.1 Immature Gran # (Auto) 0.03 H Absolute Nucleated RBC 0.00 Immature Gran % 0 Nucleated RBC % 0 Sodium 142 143 Potassium 4.3 D 3.7 D Chloride 113 H 114 H Carbon Dioxide 16.8 L 19.8 L Anion Gap 12 9 BUN 12 8 L Creatinine 2.1 H 1.9 H Estim Creat Clear Calc 23.4 L 26.5 L eGFR 25 L 29 L BUN/Creatinine Ratio 6 L 4 L Glucose 170 H 125 H Calculated Osmolality 286 284 Calcium 9.9 10.1 Corrected Calcium 10.1 10.3 H Phosphorus 2.0 L 2.4 Magnesium 1.9 Total Bilirubin 0.3 AST 20 ALT 17 Alkaline Phosphatase 96 Total Protein 6.3 Albumin 3.8 3.8 Globulin 2.5 Albumin/Globulin Ratio 1.5 [place] 1.04 0.89 L ABG Interpretation ABG results: 01/16/25 16:27 VBG pH 7.31 L VBG pCO2 49 VBG pO2 28 VBG Base Excess -2 Quality Measures Quality Measures none Advance care planning discussed with:: patient Assessment & Plan Assessment Current Active Medications: Generic Name Dose Route Start Last Admin Trade Name Freq PRN Reason Stop Dose Admin Acetaminophen 650 mg 01/17/25 01:45 01/18/25 00:20 Acetaminophen 325 Mg Tablet PO 02/16/25 01:44 650 mg Q6H PRN Administration PAIN SCALE 1-3 (mild Amiloride HCl 5 mg 01/17/25 14:30 01/19/25 08:42 Amiloride Hcl 5 Mg Tablet PO 02/16/25 14:29 5 mg BID CHERYL Administration Amlodipine Besylate 5 mg 01/18/25 10:15 01/19/25 08:42 Amlodipine Besylate 5 Mg Tablet PO 02/17/25 10:14 5 mg QDAY CHERYL Administration Heparin Sodium (Porcine) 5,000 unit 01/17/25 06:00 01/19/25 05:49 Heparin Sod Inj 5000 Unit/Ml Vial SC 01/31/25 05:59 5,000 unit Q8HR CHERYL Administration Dextrose 1,000 mls @ 150 mls/hr 01/17/25 20:12 01/19/25 10:10 D5w IV 02/16/25 20:11 150 mls/hr .Q6H40M CHERYL Administration [place] Carbonate 150 mg 01/19/25 09:30 01/19/25 10:10 [place] Carb 150 Mg Capsule PO 02/18/25 09:29 150 mg BID CHERYL Administration Protocol Mirtazapine 30 mg 01/17/25 02:15 01/18/25 20:43 Mirtazapine 15 Mg Tablet PO 02/16/25 02:14 30 mg HS CHERYL Administration Ondansetron HCl 4 mg 01/17/25 01:40 Ondansetron Inj 2 Mg/Ml Inj 2 Ml IV 02/16/25 01:39 Q6H PRN NAUSEA OR VOMITING Protocol Propranolol HCl 10 mg 01/17/25 02:15 01/19/25 08:42 Propranolol 10 Mg Tablet PO 02/16/25 02:14 10 mg Q6H CHERYL Administration Quetiapine Fumarate 300 mg 01/18/25 21:00 01/18/25 20:42 Quetiapine Fumarate 100 Mg Tablet PO 02/17/25 20:59 300 mg HS CHERYL Administration Plan Summary: The patient is a 69-year-old female with a past medical history of hypertension, CKD stage IV, obesity, hypothyroidism, MDD, bipolar disorder on lithium who presented to the ED on 01/17/2025 with complaints of altered mental status. Found to have lithium toxicity. #Acute encephalopathy-resolved #[place] toxicity #CVA ruled out #History of bipolar disorder and MDD The patient presented with a 1 day history of forgetfulness and general confusion as reported by her daughter. Daughter reports that she suspect that she had taken more of her lithium pills as she has been very forgetful and does not remember whether or not she was taking a dose and could have been doubling up on them. Initial presentation, lithium level was 1.98 and the medication was held. Head CT was done which is negative. Today, patient's mentation is back to baseline, lithium level is down to 0.89 and the medication has been restarted. Plan: -Continue lithium at 150 mg twice daily -Continue mirtazapine 30 mg and quetiapine 300 mg at bedtime #ISAIAH on CKD #Hypothyroidism #Electrolyte imbalance -Management per primary team Case was discussed with attending physician, Dr Flaca Leyva MD PGY-1 Disclaimer: This note was dictated by speech recognition. Minor errors in tourist cabin keeper may be present due to voice recognition software. Attending Provider Attestation/Addendum I personally seen and examined the patient at the bedside and agree with resident findings, assessment and plan of care. Patient is stable from neurology standpoint for discharge lithium 150 mg twice daily and with his usual medications. Follow-up in 1 week.
--- NOTE | 2025-01-19 14:42 | ESDS_ITS ---
Planned Discharge Date 01/19/25 DS: Providers Provider Date of admission: 01/17/25 01:42 Primary care physician: Niesha Munoz NP Admitting Provider: Levi Sanchez MD Attending Provider on Admission: Brock Mcdaniel MD Consults: 01/17/25 08:00 Consult to Nephrology Routine Comment: [facility] Toxicity Consulting Provider: Roro Mckeon 01/17/25 10:19 Consult to Neurology / Tele-Neurology Routine Comment: Bipolar Disorder, [facility] Toxicity Consulting Provider: Vikram Thayer 01/18/25 10:08 Referral Speech Therapy Routine Comment: 01/18/25 10:11 Referral Physical Therapy Routine Comment: Physician Instructions: Attending Provider on DC: Brock Mcdaniel MD Discharging Provider: Brock Mcdaniel MD Anticipated date of discharge: 01/19/25 DS: Diagnosis Problem List Completed Was Problem List Reviewed/Reconciled?: Yes Hospital Course Hospital Course Hospital course: Hospital course: Ms. Early is a 69-year-old female with past medical history of CKD stage IV, bipolar disorder and multiple suicide attempts in the past, major depressive disorder, hypothyroidism, GERD, obesity and unspecified tremors who presented to [facility] emergency department with her daughter with a chief complaint of altered mental status. Patient was found to have lithium level of 1.98, there was concern of accidental overdose on lithium medication, patient was started on IV fluids, lithium levels were monitored every 4 hours, nephrology and neurology were consulted. Patient's lithium levels eventually improved with IV fluids, there was high underlying suspicion of nephrogenic diabetes insipidus considering patient also had hypernatremia, patient was started on D5W and eventually nephrology recommended amiloride. Patient's hyponatremia improved with the progression of hospital course, neurology was consulted to optimize patient's psychiatry medications and underlying possible dementia and tremors. Patient condition improved with the progression of hospital course, further plan is to discharge patient home on lithium 150 mg twice daily, resume all her other home psych medications and disc harge her on amiloride 5 mg 4 times daily, patient to follow-up with nephrology in 1 to 2 weeks, neurology in 1 week with lithium levels. Patient is otherwise stable for discharge and patient responded well to the hospital treatment. Patient discharged home with home health. Discharge diagnoses: #Acute encephalopathy, resolved #Acute on chronic lithium toxicity #Nephrogenic diabetes insipidus #Hypernatremia, resolved #Hypercalcemia, resolving #Dehydration #CKD stage IV #Major depressive disorder #Bipolar disorder #Hypothyroidism, by history #Possible Dementia Case discussed with Attending Dr. Mcdaniel and Dr. Castro PGY2. Amilcar Oliveira PGY1 Disclaimer: This note was dictated by speech recognition. Minor errors in digital assistant may be present due to voice recognition software. Status at Discharge Overall status at discharge: patient is progressing back to baseline Time Spent with Patient Time attestation: Total time spent providing and/or coordinating discharge services: Greater than 35 minutes Time spent: Greater than 30 minutes Home Health Home Health Referral Orders: 01/19/25 10:27 Home Health Referral Routine Reason For Exam: Home PT, refused SNF Home-Bound The patient must either because of illness or injury, need the aid of supportive devices such as crutches, canes, wheelchairs, and walkers; the use of special transportation; or the assistance of another person in order to leave their place of residence; OR have a condition such that leaving his or her home is medically contraindicated. In addition, the patient also meets the following criteria: patient is normally unable to leave the home and leaving home requires considerable taxing effort. Addendum to Home Health Certification Practitioner's Certification: I certify that the patient has been under my care in the hospital and the care of attending physician (see below). We had a [id number] encounter on (see date below). My clinical findings indicate that the patient is home bound per the above criteria and the Home Health Services noted in these orders are medically necessary. The primary reason for the [id number] encounter is related to the fact that the patient requires home health services. Date Certifying [id number] Physician Encounter: 01/17/25 Physician's Name who will Assume Oversight for Services: Niesha Munoz Physician's Phone No.who will Assume Oversight for Service: [facility] [place] - Community Resources: Yes PT to Evaluate: Yes PT to evaluate and provide a treatmnet plan to increase patient's mobility and strength. Wound Care: No IV Therapy: No RN Safety Evaluation: Yes RN to evaluate and create a plan of care that will produce positive outcomes. Palliative Treatment: No Palliative treatment and evaluate the need for hospice. Home Health Aide - Personal Care: Yes Home Health Aide to assist with any ADL's. Exam Vital Signs Temp Pulse Resp BP Pulse Ox O2 Del Method 98.1 F 67 28 H 139/79 H 96 Room Air 01/19/25 12:00 01/19/25 12:00 01/19/25 12:00 01/19/25 12:00 01/19/25 12:00 01/19/25 12:00 Narrative Exam Physical Exam General: Awake and in no acute distress. Conversational and non-toxic appearing. HEENT: Normocephalic, atraumatic, mucous membranes moist. Heart: Regular rate and rhythm, no murmurs. Lungs: Clear to auscultation with no wheezing or crackles. Abdomen: Soft, nondistended, nontender, positive bowel sounds. ?No guarding or rebound tenderness. Neurologic: Alert and oriented x3, no gross neurological deficit, and patient able to move all 4 extremities. Gross tremor noted in bilateral upper extremities. Extremities: No edema. Skin: No rash or ecchymoses. Discharge Plan Plan Patient Disposition: Home w/HOME HEALTH Patient condition on transfer: Stable Prescriptions/Referrals Prescriptions/Med Rec: New lithium carbonate 150 mg Capsule 150 mg PO BID 30 Days Qty: 60 0RF amiloride 5 mg Tablet 5 mg PO QID 30 Days Qty: 120 0RF Continued propranolol 10 mg tablet 10 mg PO Q6H mirtazapine [Remeron] 15 MG tablet 30 mg PO HS Qty: 0 Sho-Dorothy 0.8 mg tablet 1 tab PO Q24H Patient Comments: TAKE 1 TABLET BY MOUTH EVERY DAY quetiapine 300 mg tablet 300 mg PO HS Patient Comments: TAKE 1 TABLET BY MOUTH EVERY DAY Discontinued lithium carbonate 300 mg capsule 300 mg PO BID temazepam 30 mg capsule 30 mg PO QDAY mirabegron [Myrbetriq] 25 mg tablet extended release 24 hr 25 mg PO QDAY Patient Comments: TAKE 1 TABLET BY MOUTH EVERY DAY FOR 30 DAYS Referrals: Niesha Munoz NP [Primary Care Provider] - Alan Ashley MD [Physician] - Vikram Thayer MD [Physician] - Outpatient Orders (i.e. Home Health, Labs, Imaging): [facility] (Routine) Timeframe: 2 Weeks Location: None Selected Ordered By: Amilcar Oliveira Patient/Caregiver Discharge Instructions Discharge Activity: as per physical therapy Other Discharge Activity Instructions:: Continue new medication amiloride 5 mg p.o. 4 times daily. Changed to lithium dose to 150 mg twice daily, discard old medication. Continue all other home medications. Follow-up with signals intelligence superintendent Dr. Ashley outpatient in about 1 to 2 weeks. Follow-up with neurologist Dr. Thayer in 1 to 2 weeks with repeat lithium levels. Follow-up with your psychiatrist in 1 to 2 weeks. Follow-up with primary care physician in 1 week. Return to emergency department if symptoms reoccur. Other Discharge Diet Instructions: Renal Diet Education Materials: Boosting Your Mental Health, First Aid: Poisoning, Hypernatremia Dc Print Language: Guatemalan Stand Alone Forms: Melissa Award Info., Patient Portal Info Letter Discharge Order Discharge Orders: Discharge (Routine); Ordered 01/19/25 Ordered By: Amilcar Oliveira Quality Discharge Quality Measures VTE prophylaxis MD Attestestation MD Attestation I reviewed labs, imaging, EKG, home medications and prior available records. Face to face evaluation was performed by me. I have personally examined the patient and discussed assessment and plan with the IM team. I reviewed the resident note and agree with the plan with exceptions as below. Acute encephalopathy CKD stage IIIb Hypernatremia Bipolar disorder CT head is negative for acute changes Discussed with neurology: Resumed quetiapine Sodium improved. Monitor sodium level as outpatient Resumed lithium. Follow-up level Discussed with nephrology: Start amiloride 5 mg 4 times daily Monitor kidney function: Stable Outpatient follow-up with psychiatry. Discussed with neurology: Resume all psych medications PT recommended SNF however patient wants to go home. Ordered home health Time spent is 40 minutes. More than 50% of the time was spent on patient education and coordination of care.
--- NOTE | 2025-01-19 16:07 | PC.SS ---
SS met with pt and dtr who were requesting to speak with SS. SS provided verbal d/c options for home or SNF. Dtr is requesting HH Services. SS provided dtr with [facility] and 24 Hour [facility] inform. Dtr states she does not have preference for HH.
--- NOTE | 2025-01-19 16:27 | PC.NURSE ---
Daughter at bedside to go over discharge instructions with patient. administrative services coordinator spoke with daughter and still want to continue with discharging home with home health over snf. Dr. Mckeon notified of discharge and ok with Dr. Ashley follow up. Dr. Thayer notified of discharge, ok to discharge will follow up. Daughter and pt verbalize understanding of 4 follow up appts with pcp, nephro, neuro and pyschiatrist.
--- NOTE | 2025-01-20 10:01 | PC.CM ---
Patient accepted by [facility] and start of care date is for 01/21.
== END 2025-01-19 15:30 | disposition home health service (06) | DRG 917 ==
LOC: SERX 01-17 00:55 → SERHOLD 01-17 01:53 → S2NX 01-17 03:01
PROVIDERS: Internal Medicine; Physician Assistant; Student in an Organized Health Care Education/Training Program; Admitting Provider Internal Medicine; Emergency Provider Emergency Medicine; PCP Nurse Practitioner Family; Visit Provider Student in an Organized Health Care Education/Training Program
DX: T43.591A Poisoning by other antipsychotics and neuroleptics, accidental (unintentional), initial encounter (principal); G93.41 Metabolic encephalopathy; N18.4 Chronic kidney disease, stage 4 (severe); N17.9 Acute kidney failure, unspecified; N25.1 Nephrogenic diabetes insipidus; F31.9 Bipolar disorder, unspecified; R32 Unspecified urinary incontinence; E03.9 Hypothyroidism, unspecified; K21.9 Gastro-esophageal reflux disease without esophagitis; E83.52 Hypercalcemia; E86.0 Dehydration; I12.9 Hypertensive chronic kidney disease with stage 1 through stage 4 chronic kidney disease, or unspecified chronic kidney disease
CPT/HCPCS: 36415; 70450; 71045; 76770; 80053; 80061; 80069; 80178; 81001; 82306; 82436; 82652; 82803; 83036; 83605; 83735; 83880; 83935; 83970; 84100; 84133; 84300; 84439; 84443; 84484; 84550; 85025; 87086; 87811; 92610; 93005; 96360; 97162; 99291; J0360; J1643; J3475; J7030; J7070; A9270

== ENCOUNTER → 2025-02-04 | Outpatient (CLI) | payer MEDICARE, BC, SELFPAY | END | disposition home or self-care (01) | PROVIDERS: PCP Nurse Practitioner Family; Referring Provider Internal Medicine; Visit Provider Internal Medicine | DX: N18.4 Chronic kidney disease, stage 4 (severe) (principal); D63.1 Anemia in chronic kidney disease; F32.9 Major depressive disorder, single episode, unspecified; D50.9 Iron deficiency anemia, unspecified; E55.9 Vitamin D deficiency, unspecified | CPT/HCPCS: 80069 ==

== ENCOUNTER 2025-02-10 12:53 | Inpatient (IN) | payer MEDICARE, BC, SELFPAY ==
[2025-02-10] VITALS (7 sets, daily range): BP systolic 118–150; BP diastolic 74–91; PULSE 52–68; RESP 15–99; TEMP 36.1–36.9; O2SAT 99–100; BMI 26.5; BMI 28.5
[2025-02-10] MEDS: SODIUM CHLORIDE RT SOL 0.9% 3 ML NEBU INH (13:29)
[2025-02-10] MEDS: ALBUTEROL RT 2.5 MG/0.5 ML NEBU 5 MG INH (13:29)
[2025-02-10] MEDS: CALCIUM CHLORIDE 10% INJ 10 ML SYRG IV (13:37)
[2025-02-10] MEDS: FUROSEMIDE INJ 10 MG/ML VIAL 2 ML 40 MG IVP (13:38)
--- NOTE | 2025-02-10 13:41 | PD.EDRECHK ---
ED Recheck Abnl Lab Rx-RME/HPI General Chief Complaint: Recheck/Abnormal Lab/Rx Stated Complaint: HIGH K+ Time Seen by Provider: 02/10/25 13:41 Arrival date/time: 02/10/25 12:53 RME / HPI RME / HPI narrative: 69-year-old female with significant past medical history of CKD stage IV, bipolar disorder and multiple suicide attempts in the past, major depressive disorder, hypothyroidism, GERD, was sent to us by Dr. Quintana for hyperkalemia. Patient had routine blood drawn done today and was advised to come to the emergency room for hyperkalemia and worsening creatinine. Patient told me that the only complaint she had right now is patient not feeling well. Denies any chest pain denies any headache denies any abdominal pain denies any vomiting denies any diarrhea. Patient was admitted in this hospital 2 weeks ago for ISAIAH. Related Data Home Medications ?Medication ?Instructions ?Recorded ?Confirmed mirtazapine 15 mg tablet (Remeron) 30 mg PO HS #0 tabs 07/14/15 01/16/25 propranolol 10 mg tablet 10 mg PO Q6H 11/17/20 01/16/25 quetiapine 300 mg tablet 300 mg PO HS 11/13/23 01/16/25 vitamin B complex-vitamin C-folic 1 tab PO Q24H 01/16/25 01/17/25 acid 0.8 mg tablet (Sho-Dorothy) Previous Rx's ?Medication ?Instructions ?Recorded amiloride 5 mg tablet 5 mg PO QID 30 days #120 tabs 01/19/25 lithium carbonate 150 mg capsule 150 mg PO BID 30 days #60 caps 01/19/25 Allergies Allergy/AdvReac Type Severity Reaction Status Date / Time Sulfa (Sulfonamide Allergy Unknown Verified 12/24/24 09:49 Antibiotics) Review of Systems Review of Systems Narrative Review of Systems: Review of system reviewed and within normal limits except mentioned in HPI ED Exam Narrative Physical exam: VITAL SIGNS: Reviewed. GENERAL APPEARANCE: Alert and interactive, follows commands, no acute distress, HEAD AND FACE: Non-traumatic. ENT: PERRL, pink conjunctivitis, eyelid no trauma, Mucous membrane moist. NECK: Supple, nontender, no nuchal rigidity. CHEST: No tenderness, no crepitus, no paradoxical movement, no retractions. LUNGS: Clear, well ventilated, symmetric, no rales, no wheezing, no ronchi, no stridor, good breath sounds bilaterally. HEART: Regular rate, regular rhythm, no murmur, no gallops. ABDOMEN: Soft, positive bowel sounds, nondistended, no guarding, nontender, no rebound, no masses, RECTAL: Deferred. GENITAL: Deferred. NEUROLOGICAL: Gross motor function intact sensory function intact, Appropriate for age. MUSCULOSKELETAL: low back nontender, full range of motion. EXTREMITIES: Nontender, full range of motion. SKIN: Color pink, dry, no rash, no lacerations, no abrasions, no contusions. LYMPHATICS: Deferred. Course Quality Measures none Orders Category Date Time Status Bedside Blood Glucose Q2HX3 Care 02/10/25 13:19 Active COVID-19 Screening Questionnaire NOW Care 02/10/25 14:04 Active Decision to Admit X1 Care 02/10/25 14:04 Active Consult to Nephrology Stat Cons 02/10/25 13:49 Ordered US renal BI Stat Exams 02/10/25 13:49 Ordered CBC [CBC] Stat Lab 02/10/25 14:09 Ordered CMP [Comprehensive Metabolic Panel] Stat Lab 02/10/25 14:09 Ordered UA, C/S IF [Urinalysis, C/S if Indicated] Stat Lab 02/10/25 14:09 Ordered ALBUTEROL RT 0.5ml [Proventil Rt 0.5ml] Med 02/10/25 13:14 Discontinued 5 mg INH X1 ONE Calcium Chloride 10% Abboject Med 02/10/25 13:19 Discontinued 10 ml IV X1 ONE Dextrose 10%-Water 1000 ml [D10w 1000 ml] 1,000 ml Med 02/10/25 13:30 Discontinued IV 100 mls/hr Dextrose 50% Syr [D50w Syringe Abboject] Med 02/10/25 13:19 Active 25 ml IV Q15MIN PRN Dextrose 50% Syr [D50w Syringe Abboject] Med 02/10/25 13:19 Active 50 ml IV Q15MIN PRN Furosemide [Lasix Inj] Med 02/10/25 13:19 Discontinued 40 mg IVP X1 ONE Glucagon Inj Med 02/10/25 13:19 Active 1 mg IM Q15MIN PRN Insulin Regular Med 02/10/25 13:19 Discontinued 5 unit IV X1 ONE Sod Polystyrene Sulfon Susp [Kayexalate Susp] Med 02/10/25 13:19 Discontinued 30 gm PO X1 ONE Sodium Chloride 0.9% 1000 ml [Ns] 1,000 ml Med 02/10/25 13:45 Discontinued IV 999 mls/hr Sodium Chloride Rt Eveline 0.9% [NS Rt Eveline 0.9%] Med 02/10/25 13:14 Active 3 ml INH PRN PRN Vital Signs Vital signs: Vital Signs Temperature 98.3 F 02/10/25 13:06 Pulse Rate 55 L 02/10/25 13:06 Respiratory Rate 20 02/10/25 13:06 Blood Pressure 126/80 02/10/25 13:06 Pulse Oximetry (%) 99 02/10/25 13:06 Oxygen Delivery Method Room Air 02/10/25 13:06 Recheck / Abnormal Lab / Rx MDM Narrative MDM Narrative:: 69-year-old female with significant past medical history of CKD stage IV, bipolar disorder and multiple suicide attempts in the past, major depressive disorder, hypothyroidism, GERD, was sent to us by Dr. Quintana for hyperkalemia. Patient had routine blood drawn done today and was advised to come to the emergency room for hyperkalemia and worsening creatinine. Patient told me that the only complaint she had right now is patient not feeling well. Denies any chest pain denies any headache denies any abdominal pain denies any vomiting denies any diarrhea. Patient was admitted in this hospital 2 weeks ago for ISAIAH. Patient potassium was noted to be 6.6 that was done earlier today and a creatinine of 3.1 Patient EKG showed sinus rhythm, ventricular rate of 61 bpm, no ST segment elevation or depression noted. 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 asked the patient to be admitted to be hospitalist for hyperkalemia and acute on chronic kidney disease Patient was given IV fluids 1 L NS, Kayexalate, calcium chloride, regular insulin albuterol breathing treatment Lasix IV Spoke with hospitalist who admitted the patient Patient data External records reviewed:: [facility] previous records Clinical information provided by:: patient and family Social determinants that could affect healthcare access:: none Patient has the following chronic illnesses:: Chronic kidney disease stage IV bipolar disorder hypothyroidism GERD How is presenting disease/condition affected by chronic disease/condition?: exacerbated by Evaluation data The following diagnostics were reviewed and interpreted by me:: lab results, radiology exam(s) and EKG tracing(s) Lab and/or radiology exams considered but not ordered:: None see results in MDM Interpretation Summary: See results in MDM Medications / Prescriptions Medications or Prescriptions considered but not ordered:: None Medication administrations:: Medication Administration History Acetaminophen (Acetaminophen 325 Mg Tablet) 650 mg PO Q6H PRN PRN Reason: Mild Pain 1-3 or Fever >100.3 Stop: 03/12/25 14:10 Dextrose (Dextrose 50%-Water Inj 50 Ml Syringe) 25 ml IV Q15MIN PRN PRN Reason: BG 50-70 responsive npo pt Stop: 03/12/25 13:18 Last Admin: 02/10/25 13:55 Dose: 25 ml Documented By: BERTA Dextrose (Dextrose 50%-Water Inj 50 Ml Syringe) 50 ml IV Q15MIN PRN PRN Reason: BG <50 OR BG <70 & pt unresponsive Stop: 03/12/25 13:18 Glucagon (Glucagon Inj 1 Mg Vial) 1 mg IM Q15MIN PRN PRN Reason: BG <70, and no IV access Heparin Sodium (Porcine) (Heparin Sod Inj 5000 Unit/Ml Vial) 5,000 unit SC Q12HR CHERYL Stop: 02/24/25 20:59 Ondansetron HCl (Ondansetron Inj 2 Mg/Ml Inj 2 Ml) 4 mg IV Q6H PRN; Protocol PRN Reason: NAUSEA OR VOMITING Stop: 03/12/25 14:10 Pantoprazole Sodium (Pantoprazole 40 Mg Tablet) 40 mg PO QDAY CHERYL Stop: 03/12/25 14:14 Last Admin: 02/10/25 15:05 Dose: 40 mg Documented By: BERTA Sennosides (Senna Tablet) 1 tab PO QDAY CHERYL; Protocol Stop: 03/12/25 14:14 Last Admin: 02/10/25 15:05 Dose: 1 tab Documented By: BERTA Sodium Chloride (Sodium Chloride Rt Eveline 0.9% 3 Ml Nebu) 3 ml INH PRN PRN PRN Reason: SOLN Stop: 03/12/25 13:13 Last Admin: 02/10/25 13:29 Dose: 3 ml Documented By: MW Discontinued Medications Albuterol (Albuterol Rt 2.5 Mg/0.5 Ml Nebu) 5 mg INH X1 ONE Stop: 02/10/25 13:15 Last Admin: 02/10/25 13:29 Dose: 5 mg Documented By: LIZZIE Calcium Chloride (Calcium Chloride 10% Inj 10 Ml Syrg) 10 ml IV X1 ONE Stop: 02/10/25 13:20 Last Admin: 02/10/25 13:37 Dose: 10 ml Documented By: BERTA Furosemide (Furosemide Inj 10 Mg/Ml Vial 2 Ml) 40 mg IVP X1 ONE Stop: 02/10/25 13:20 Last Admin: 02/10/25 13:38 Dose: 40 mg Documented By: BERTA Dextrose (D10w 1000 Ml) 1,000 mls @ 100 mls/hr IV .Q10H CHERYL Stop: 02/10/25 23:29 Last Infusion: 02/10/25 14:00 Dose: 0 mls/hr Documented By: Admin: 02/10/25 13:43 Dose: 100 mls/hr Documented By: BERTA Sodium Chloride (Ns) 1,000 mls @ 999 mls/hr IV .Q1H1M ONE Stop: 02/10/25 14:45 Last Admin: 02/10/25 13:56 Dose: 999 mls/hr Documented By: BERTA Insulin Human Regular (Insulin Hum Regular 1 Unit/0.01 Ml (Per Unit)) 5 unit IV X1 ONE Stop: 02/10/25 13:20 Last Admin: 02/10/25 13:52 Dose: 5 unit Documented By: BERTA Co-signed By: ALISON Sodium Polystyrene Sulfonate (Sod Polystyrene Sulfon Susp 15 Gm/60 Ml Btl) 30 gm PO X1 ONE Stop: 02/10/25 13:20 Last Admin: 02/10/25 13:42 Dose: 30 gm Documented By: BERTA Kayexalate, albuterol breathing treatment, calcium chloride, insulin IV Lasix IV fluids for hydration Consultations Consultation(s) initiated? (list below): No Diagnosis Recheck Differential Diagnosis: other (Hyperkalemia, dehydration, ISAIAH) Most likely diagnosis given after review of the tests above:: Hyperkalemia, acute on chronic kidney disease Admission Indicated Admission indicated?: indicated Admission Request Was there a request for admission?: Yes Admission Attestation Admission request attestation: Discussed case with [Dr. Payne] from Hospitalist service regarding admission. Discussed patients ED course, exam findings, labs, and radiology results. The Hospitalist [agrees,] to accept the patient for admission. Disposition Plan Disposition Plan: Admit Discharge Plan Plan Patient Disposition: Admit Acute Care w/in Hospital Disposition Comment: Stable Problem List Clinical Impression: Acute hyperkalemia, Acute on chronic kidney failure
[2025-02-10] MEDS: SOD POLYSTYRENE SULFON SUSP 15 GM/60 ML BTL 30 GM PO (13:42)
[2025-02-10] MEDS: DEXTROSE 10%-WATER 1000 ML 1,000 ML 100 ML IV (13:43)
--- NOTE | 2025-02-10 13:49 | XR_ITS ---
Examination: Retroperitoneal ultrasound, complete Technique: Multiple high resolution grayscale images of the retroperitoneum obtained, including kidneys and bladder. Exam date and time:February 10, 2025 1413 hours INDICATIONS: Chronic kidney disease stage IV, acute renal insufficiency on laboratory examination 3 weeks ago FINDINGS: Right kidney 8.9 cm cortex 1.4 cm Benign renal cysts Left kidney 8.0 cm cortex 1.2 cm Benign renal cysts, the largest 12 mm Moderate renal parenchymal scar formation No bladder mass or bladder calculi Bladder prevoid volume 372.8 cc postvoid volume 255.8 cc IMPRESSION: Small kidneys with bilateral renal cortical thinning Moderate bilateral renal scar formation
[2025-02-10] MEDS: INSULIN HUM REGULAR 1 UNIT/0.01 ML (PER UNIT) 5 UNIT IV (13:52)
[2025-02-10] MEDS: DEXTROSE 50%-WATER INJ 50 ML SYRINGE 25 ML IV (13:55)
[2025-02-10] MEDS: SODIUM CHLORIDE 0.9% 1000 ML 1,000 ML 999 ML IV (13:56)
--- NOTE | 2025-02-10 14:15 | EKG_ITS ---
[facility] Test Date: 2025-02-10 Pat Name: BRIA BOWMAN Department: Room: - Gender: Female Gi Technician: : 1955 Requested By: Shruthi Payne Order Number: [id number] Reading MD: Shruthi Payne Measurements Intervals [place] Rate: 61 P: AR: QRS: 14 QRSD: 113 T: -41 QT: 380 QTc: 385 Interpretive Statements SUPRAVENTRICULAR RHYTHM MODERATE INTRAVENTRICULAR CONDUCTION DELAY [110+ ms QRS DURATION] ST DEVIATION AND MODERATE T-WAVE ABNORMALITY, CONSIDER LATERAL ISCHEMIA [-0.1+ mV T-WAVE IN I/aVL/V5/V6] ST DEVIATION AND MODERATE T-WAVE ABNORMALITY, CONSIDER INFERIOR ISCHEMIA [-0.1+ mV T-WAVE IN II/aVF] Compared to ECG 01/16/2025 15:25:28 Supraventricular rhythm now present Intraventricular conduction delay now present Possible ischemia now present Sinus bradycardia no longer present Left ventricular hypertrophy no longer present T-wave abnormality still present /store/S0/[id number].pdf
--- NOTE | 2025-02-10 14:27 | EKG_ITS ---
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: : 1955 Requested By: Jennifer Abreu Order Number: [id number] Reading MD: Jennifer Abreu Measurements Intervals [place] Rate: 61 P: 26 [place]: 210 QRS: 14 QRSD: 110 T: -51 QT: 390 QTc: 394 Interpretive Statements SINUS RHYTHM WITH FIRST DEGREE AV BLOCK ST DEVIATION AND MODERATE T-WAVE ABNORMALITY, CONSIDER LATERAL ISCHEMIA [-0.1+ mV T-WAVE IN I/aVL/V5/V6] ST DEVIATION AND MODERATE T-WAVE ABNORMALITY, CONSIDER INFERIOR ISCHEMIA [-0.1+ mV T-WAVE IN II/aVF] Compared to ECG 01/16/2025 15:25:28 First degree AV block now present Possible ischemia now present Sinus bradycardia no longer present Left ventricular hypertrophy no longer present T-wave abnormality still present /store/S0/[id number]/[id number].pdf
[2025-02-10] MEDS: SENNA TABLET 1 TAB PO (15:05)
[2025-02-10] MEDS: PANTOPRAZOLE 40 MG TABLET PO (15:05)
--- NOTE | 2025-02-10 15:58 | PD.RESHP ---
Documentation for date of: 02/10/25 [facility] History of Present Illness History of present illness: Patient is a 69-year-old female with a past medical history of CKD stage IV (Dr. 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 Patient presented to the emergency room from Dr. Ashley's office after outpatient labs showed hyperkalemia. Patient denied any chest pain or shortness of breath. Patient denied any palpitations. Patient denied dizziness. Patient denied headaches. Patient has been fatigued. Patient denied any sick contacts. Patient denied any hematemesis or hemoptysis or hematochezia. ER course Vitals on admission showing blood pressure 126/80, heart rate of 55, respiratory rate 20 and saturating well on room air. Mild hyponatremia hypoosmolar, sodium 132. Osmolarity 274 potassium 6.6. Bicarb 19.1. BUN 38, creatinine 3.1, GFR 16-ISAIAH on CKD. Hypercalcemia 10.8 repeat showing 12.7. Phosphorus within normal limits TSH 8. Medication: Albuterol, Calcium Chloride, Insulin 5 units, and NS 1 bolus Admitted on 02/10/2025 for ISAIAH on CKD and hyperkalemia. Home Medication: Amiloride [place] Carbonate 150 mg BID Mirtazapine 30 mg HS Quetiapine 300 mg HS Propranolol 40 mg TID Social History: No Alcohol use no illicit drugs Allergies: Sulfa drugs Code Status: Full Code Review of Systems Review of Systems Narrative Review of Systems: General appearance: NO weight change, NO fatigue, NO weakness, NO fever, NO chills, NO night sweats, No cough Skin: NO rash, NO itching, NO sores, NO moles HEENT: NO Trauma, NO nausea, NO vomiting, NO visual changes, NO blurry vision, NO double vision, NO tinnitus, NO vertigo, NO ear discharge, NO rhinorrhea, NO stuffiness, NO sneezing, NO allergy, NO epistaxis. NO Hoarseness, NO sore throat, NO swollen neck. Cardiac: NO Palpitations, NO dyspnea on exertion, NO orthopnea, NO paroxysmal nocturnal dyspnea, NO edema Respiratory: NO Shortness of Breath, NO Wheezing, NO Cough, NO Sputum, NO hemoptysis GI:NO appetite, NO nausea, NO vomiting, NO dysphagia, NO changes in bowel frequency, NO stool color, NO diarrhea, NO constipation, NO hemetemesis, NO hemorrhoids, NO melena, NO hematechezia, NO abdominal pain, NO jaundice Renal: NO frequency, NO hesitancy, NO urgency, NO hematuria, NO nocturia, NO incontinence MSK: NO muscle weakness, NO gout, NO arthritis, NO muscle stiffness Neuro: NO headaches, NO tremors, NO weakness, NO paralysis, NO seizures, NO loss of consciousness, NO numbness. Hem: NO anemia, NO easy bruising/bleeding, NO petechiae, NO purpura Endo: NO heat/cold intolerance, NO excessive sweating, NO polyuria, NO polydipsia, NO polyphagia, NO thyroid problems, NO diabetes Pysch: NO mood, NO anxiety, NO depression Exam Vital Signs Temp Pulse Resp BP Pulse Ox O2 Del Method 98.3 F 52 L 20 135/76 H 100 Room Air 02/10/25 13:06 02/10/25 13:38 02/10/25 13:33 02/10/25 13:38 02/10/25 13:33 02/10/25 13:06 Narrative Exam General Appearance: Alert & Oriented X3, well-nourished female who is lying in bed in no acute distress HEENT: Skull symmetrical and atraumatic. Conjunctivae pink and moist. Pupils equal, round, reactive to light and accommodation (PERRL). External ear without lesion or discharge. Straight, nares patient, mucosa pink, no discharge. No thyroid nodule appreciated. No cervical lymphadenopathy. Cardio: Normal Rate and Rhythm with S1 and S2 heart sounds. No murmurs or extra heart sounds auscultated. No bruits on carotid auscultation. No peripheral edema or cyanosis. Lungs: Symmetric with good expansion. Chest and back non-tender. Breath sounds vesicular without crackles, wheezing or rhonchi Abdomen: Non-tender, Non-distended, Normal Reactive Bowel Sounds Neuro: Alert, cooperative, oriented to person, place, and time. Speech clear. CN grossly intact. Upper motor strength 5/5 and Lower motor strength 5/5. Sensation intact. Results: Labs 02/11/25 04:35 02/11/25 04:35 Quality Measures Quality Measures none Advance care planning discussed with:: patient Medications Home Medications and Allergies Home Medications ?Medication ?Instructions ?Recorded ?Confirmed ?Type mirtazapine 15 mg tablet (Remeron) 30 mg PO HS #0 tabs 07/14/15 02/11/25 History propranolol 10 mg tablet 10 mg PO Q6H 11/17/20 02/11/25 History quetiapine 300 mg tablet 300 mg PO HS 11/13/23 02/11/25 History vitamin B complex-vitamin C-folic 1 tab PO Q24H 01/16/25 02/11/25 History acid 0.8 mg tablet (Sho-Dorothy) Allergies Allergy/AdvReac Type Severity Reaction Status Date / Time Sulfa (Sulfonamide Allergy Unknown Verified 12/24/24 09:49 Antibiotics) Visit Medications Acetaminophen (Acetaminophen 325 Mg Tablet) 650 mg PO Q6H PRN PRN Reason: Mild Pain 1-3 or Fever >100.3 Stop: 03/12/25 14:10 Dextrose (Dextrose 50%-Water Inj 50 Ml Syringe) 25 ml IV Q15MIN PRN PRN Reason: BG 50-70 responsive npo pt Stop: 03/12/25 13:18 Last Admin: 02/10/25 13:55 Dose: 25 ml Dextrose (Dextrose 50%-Water Inj 50 Ml Syringe) 50 ml IV Q15MIN PRN PRN Reason: BG <50 OR BG <70 & pt unresponsive Stop: 03/12/25 13:18 Glucagon (Glucagon Inj 1 Mg Vial) 1 mg IM Q15MIN PRN PRN Reason: BG <70, and no IV access Heparin Sodium (Porcine) (Heparin Sod Inj 5000 Unit/Ml Vial) 5,000 unit SC Q12HR CHERYL Stop: 02/24/25 20:59 Mirtazapine (Mirtazapine 15 Mg Tablet) 30 mg PO HS CHERYL Stop: 03/12/25 20:59 Ondansetron HCl (Ondansetron Inj 2 Mg/Ml Inj 2 Ml) 4 mg IV Q6H PRN; Protocol PRN Reason: NAUSEA OR VOMITING Stop: 03/12/25 14:10 Pantoprazole Sodium (Pantoprazole 40 Mg Tablet) 40 mg PO QDAY CHERYL Stop: 03/12/25 14:14 Last Admin: 02/10/25 15:05 Dose: 40 mg Quetiapine Fumarate (Quetiapine Fumarate 100 Mg Tablet) 300 mg PO HS CHERYL Stop: 03/12/25 20:59 Sennosides (Senna Tablet) 1 tab PO QDAY CHERYL; Protocol Stop: 03/12/25 14:14 Last Admin: 02/10/25 15:05 Dose: 1 tab Sodium Chloride (Sodium Chloride Rt Eveline 0.9% 3 Ml Nebu) 3 ml INH PRN PRN PRN Reason: SOLN Stop: 03/12/25 13:13 Last Admin: 02/10/25 13:29 Dose: 3 ml Vitamin B Complex/Vit C/Folic Acid (Vit B12/Vit C/Fa (Nephrovite) Tablet) 1 tab PO Q24H CHERYL Stop: 03/12/25 15:44 Discontinued Medications Albuterol (Albuterol Rt 2.5 Mg/0.5 Ml Nebu) 5 mg INH X1 ONE Stop: 02/10/25 13:15 Last Admin: 02/10/25 13:29 Dose: 5 mg Calcium Chloride (Calcium Chloride 10% Inj 10 Ml Syrg) 10 ml IV X1 ONE Stop: 02/10/25 13:20 Last Admin: 02/10/25 13:37 Dose: 10 ml Furosemide (Furosemide Inj 10 Mg/Ml Vial 2 Ml) 40 mg IVP X1 ONE Stop: 02/10/25 13:20 Last Admin: 02/10/25 13:38 Dose: 40 mg Dextrose (D10w 1000 Ml) 1,000 mls @ 100 mls/hr IV .Q10H CHERYL Stop: 02/10/25 23:29 Last Infusion: 02/10/25 14:00 Dose: 0 mls/hr Sodium Chloride (Ns) 1,000 mls @ 999 mls/hr IV .Q1H1M ONE Stop: 02/10/25 14:45 Last Admin: 02/10/25 13:56 Dose: 999 mls/hr Insulin Human Regular (Insulin Hum Regular 1 Unit/0.01 Ml (Per Unit)) 5 unit IV X1 ONE Stop: 02/10/25 13:20 Last Admin: 02/10/25 13:52 Dose: 5 unit Sodium Polystyrene Sulfonate (Sod Polystyrene Sulfon Susp 15 Gm/60 Ml Btl) 30 gm PO X1 ONE Stop: 02/10/25 13:20 Last Admin: 02/10/25 13:42 Dose: 30 gm Assessment & Plan Plan Patient is a 69-year-old female with a past medical history of CKD stage IV (Dr. Dion johnson), history of bipolar disorder, history of depression, GERD, with a recent admission January 2025 for acute on chronic lithium toxicity who was admitte don 02/10/2025 for ISAIAH on CKD and hyperkalemia. #ISAIAH on CKD IV #Mild Hyponatremia, Hypo-osmolar #Metabolic Acidosis, non anion gap Past medical history of chronic kidney disease stage IV previous creatinine on discharge (01/19/2025) 1.9 and GFR 29 and labs on 02/10/2025 as an outpatient showing BUN of 38, creatinine 3.1, GFR of 16. This is a increase in creatinine greater than 0.3 likely ISAIAH on CKD. Metabolic Acidosis likely secondary to RTA. ddx: pre-renal in nature as patient recently started Amiloride which is a potassium sparing diuretic leading to hypovolemia & additionally [place] on board vs intrinic renal failure given BUN/Cr ratio less than 20 Diagnostics: Previous renal ultrasound on 01/18/2025 showing small kidneys with bilateral renal cortical thinning and moderate bilateral renal parenchymal scar formation. Small benign renal cyst present. Plan -Normal Saline 80 cc x 1 -Renal U/S per nephrology recs -Urine electrolytes -Microalbumin ur rnd w/ creat -Bicitra X 1 -Bladder Scan -avoid nephrotoxins -renally dose medication #Hyperkalemia Hyperkalemia likely secondary to ISAIAH vs chronic CKD vs secondary to Amiloride as this is a new medicaiton and is potassium sparring . Plan -CMP repeat -Albuterol, Insulin, and calcium chloride -Holding Amiloride #Acute on Chronic [place] Toxicity Currently holdin [place] likely secondary to ISAIAH on CKD. [place] toxicity >1.5 Plan -Holding [place], considering resuming tomorrow -Follow [place] toxicity level AM #Bradycardia, asymptomatic 50s HR, patient taking 40 mg TID-->likely should be PRN medication. Patient denied dizziness. Plan -Holding Propranol -Orthostatic Vitals #Hypercalcemia Likely secondary to ISAIAH on CKD but lithium toxicity as a cause can not re ruled out Plan -Continue to monitor -Consider PTH levels and Vitamin D levels. #history of GERD Plan -resume pantoprazole 40 oral qday #Major Depression Disorder #Bipolar Disorder Home medicaiotn of mirtazapine 30 mg and Quetiapine 300 mg HS. Patinet is also taking Propranolol 40 mg TID for anxiety and tremors, this is likely wrong and should be PRN Plan -Resume Mirtazapine 30 mg HS and Quetiapine 300 mg HS -Holding Propranolol 40 mg TID, likely should be PRN #Hypothyroidism (?) Per chart review, it is listed that patient has a past medical history of hypothyroidism, but not part of home medicaiton. TSH 8.0 Plan -free T4 Health Maintenance: Disp: Pt is currently admitted to floors for further management of hyperkalemia improvement and ISAIAH on CKD, awaiting renal US FEN: Renal Diet DVT: on subQ heparin Code: Full Code - The patient's plan was discussed with attending Dr. Ariel Payne MD PGY1 Internal Medicine Attending Provider Attestation/Addendum I, Isabel George DO, attest that I was physically present for the myers portions of the service and evaluated the patient with the resident and I reviewed and discussed the case with the resident and agree with the resident's findings and plans of care as documented above Patient is a 69-year-old female with past medical history of psych disorder, GERD, CKD stage IV who was brought to the ED due to hyperkalemia. Patient was found to have potassium was 6.6 outpatient with creatinine of 3.1 on presentation. Patient received calcium chloride, Kayexalate, insulin with D50 in the ED. 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 Patient has since been taking amiloride and reports having generalized weakness and dizziness. Will admit patient to med telemetry for further workup and medical management of hyperkalemia likely secondary to potassium sparing agent and acute kidney injury. Will give IV fluids and repeat renal panel. Potassium had decreased appropriately after receiving hyperkalemia protocol. Calcium was noted to be elevated likely secondary to the calcium chloride she had received in the ER. Will give aggressive IV fluid hydration and follow-up with renal panel. Nephrology was consulted from ED for further recommendations as well.
[2025-02-10 16:04] LABS: Alanine Aminotransferase 18 U/L (10-49); Albumin, Serum 4.7 gm/dL (3.4-4.8); Albumin/Globulin Ratio 1.5 (1.2-2.2); Alkaline Phosphatase 93 U/L (46-116); Anion Gap 7 (7-16); Aspartate Amino Transferase 30 U/L (0-34); BUN/Creatinine Ratio 12 Ratio (12-20); Bilirubin,Total 0.4 mg/dL (0.3-1.2); Blood Urea Nitrogen 36 mg/dL (9-23); Calcium 12.7 mg/dL (8.3-10.6); Calcium (Corrected) 12.7 mg/dL (8.5-10.1); Carbon Dioxide 16.8 mMol/L (20.0-31.0); Chloride 109 mMol/L (98-107); Creatinine (Component) 3.1 mg/dL (0.6-1.3); Estimated Creatinine Clearance 15.7 mL/min (>60); Free T4 (Free Thyroxine) 1.18 ng/dL (0.89-1.76); Globulin 3.1 gm/dL (2.3-3.5); Glucose 58 mg/dL (74-106); Osmolality,Calculated 272 (275-295); Potassium 5.7 mMol/L (3.4-5.1); Sodium 133 mMol/L (136-145); Total Protein 7.8 gm/dL (5.7-8.2); eGFR 16 See Note
[2025-02-10 16:17] LABS: Basophils # (Auto) 0.2 Thou/mm3 (0.0-0.2); Basophils % (Auto) 2 % (0-2.5); Eosinophils # (Auto) 0.5 Thou/mm3 (0.0-0.5); Eosinophils % (Auto) 4 % (0-10); Hematocrit 39.7 % (36.0-46.0); Hemoglobin 13.6 g/dL (12.0-16.0); Immature Granulocytes % (Auto) 1 % (0-0); Immature Granulocytes Auto 0.06 Thou/mm3 (0.00-0.00); Lymphocytes # (Auto) 2.8 Thou/mm3 (1.0-4.8); Lymphocytes % (Auto) 22 % (10-50); Mean Corpuscular HGB Conc 34.3 g/dl (31.0-37.0); Mean Corpuscular Hemoglobin 31.6 pg (25.0-35.0); Mean Corpuscular Volume 92 fL (80-100); Monocytes # (Auto) 0.8 Thou/mm3 (0.0-0.8); Monocytes % (Auto) 7 % (0-12); Neutrophils # (Auto) 8.1 Thou/mm3 (1.8-7.7); Neutrophils % (Auto) 65 % (37-80); Nucleated Red Blood Cell % 0 /100 WBC (0); Platelet Count 379 Thou/mm3 (140-440); RDW Standard Deviation 45.1 fL (36.4-46.3); Red Blood Count 4.31 Miln/mm3 (4.00-5.20); White Blood Count 12.4 Thou/mm3 (3.6-11.0)
[2025-02-10 18:12] LABS: Collection Type, Urine Clean Catch; RBC,Urine 0 /hpf (0-3)
[2025-02-10] MEDS: VIT B12/Vit C/FA (Nephrovite) TABLET 1 TAB PO (18:23)
[2025-02-10 18:35] LABS: Creatinine MALB Rnd Ur 17 mg/dL (30-125); Microalbumin Creat Ratio 24 mg/gCrea (<30); Microalbumin, Random Urine 4 mg/L (0-300); Potassium,Urine Random 24 mMol/L (12-62)
[2025-02-10 18:53] LABS: Bacteria,Urine Rare; Bilirubin,Urine Negative (Negative); Blood,Urine Negative (Negative); Clarity,Urine Clear (Clear/Hazy); Color,Urine Colorless (Lt Yel-Yel); Culture Indicated,Urine Not Indicated; Glucose, Urine Negative (Negative); Hyaline Casts,Urine < 1 /hpf (0-1); Ketones,Urine Negative (Negative); Leukocyte Esterase,Urine Positive (Negative); Nitrite,Urine Negative (Negative); Protein,Urine Negative (Neg - Trace); Specific Gravity,Urine 1.007 (1.001-1.035); Squamous Epithelial Cell,Urine 2 /hpf (0-5); Urobilinogen,Urine Negative mg/dL (0.0-1.0); WBC,Urine 4 /hpf (0-5)
[2025-02-10] MEDS: SODIUM CHLORIDE 0.9% 1000 ML 1,000 ML 100 ML IV (20:04)
[2025-02-10] MEDS: CITRIC ACID/SODIUM CITR 15 ML UDC (BICITRA) 30 ML PO (20:14)
[2025-02-10] MEDS: MIRTAZAPINE 15 MG TABLET 30 MG PO (21:36)
[2025-02-10] MEDS: QUEtiapine FUMARATE 100 MG TABLET 300 MG PO (21:36)
[2025-02-10] MEDS: HEPARIN SOD INJ 5000 UNIT/ML VIAL SC (21:39)
[2025-02-11] VITALS: BP 118/68; PULSE 69; RESP 18; TEMP 36.1; O2SAT 98
[2025-02-11 03:18] VITALS: PULSE 70; RESP 16; RESP 93
[2025-02-11 04:00] VITALS: BP 101/65; PULSE 70; RESP 16; TEMP 36.1; O2SAT 96
[2025-02-11 05:59] LABS: Basophils # (Auto) 0.1 Thou/mm3 (0.0-0.2); Basophils % (Auto) 1 % (0-2.5); Eosinophils # (Auto) 0.4 Thou/mm3 (0.0-0.5); Eosinophils % (Auto) 4 % (0-10); Hematocrit 33.9 % (36.0-46.0); Hemoglobin 11.7 g/dL (12.0-16.0); Immature Granulocytes % (Auto) 0 % (0-0); Immature Granulocytes Auto 0.02 Thou/mm3 (0.00-0.00); Lymphocytes # (Auto) 3.2 Thou/mm3 (1.0-4.8); Lymphocytes % (Auto) 33 % (10-50); Mean Corpuscular HGB Conc 34.5 g/dl (31.0-37.0); Mean Corpuscular Hemoglobin 31.9 pg (25.0-35.0); Mean Corpuscular Volume 92 fL (80-100); Monocytes # (Auto) 0.7 Thou/mm3 (0.0-0.8); Monocytes % (Auto) 7 % (0-12); Neutrophils # (Auto) 5.5 Thou/mm3 (1.8-7.7); Neutrophils % (Auto) 55 % (37-80); Nucleated Red Blood Cell % 0 /100 WBC (0); Platelet Count 331 Thou/mm3 (140-440); RDW Standard Deviation 45.5 fL (36.4-46.3); Red Blood Count 3.67 Miln/mm3 (4.00-5.20); White Blood Count 9.9 Thou/mm3 (3.6-11.0)
[2025-02-11 06:24] LABS: Alanine Aminotransferase 14 U/L (10-49); Albumin, Serum 3.9 gm/dL (3.4-4.8); Albumin/Globulin Ratio 1.7 (1.2-2.2); Alkaline Phosphatase 79 U/L (46-116); Anion Gap 8 (7-16); Aspartate Amino Transferase 19 U/L (0-34); BUN/Creatinine Ratio 12 Ratio (12-20); Bilirubin,Total 0.4 mg/dL (0.3-1.2); Blood Urea Nitrogen 34 mg/dL (9-23); Calcium 10.1 mg/dL (8.3-10.6); Calcium (Corrected) 10.2 mg/dL (8.5-10.1); Carbon Dioxide 20.7 mMol/L (20.0-31.0); Cardiac Risk Estimate 3.2 RATIO (3.7-5.6); Chloride 108 mMol/L (98-107); Cholesterol 161 mg/dL (132-200); Creatinine (Component) 2.9 mg/dL (0.6-1.3); Estimated Creatinine Clearance 17.4 mL/min (>60); Globulin 2.3 gm/dL (2.3-3.5); Glucose 85 mg/dL (74-106); HDL Cholesterol 51 mg/dL (40-60); LDL Cholesterol,Calculated 91 mg/dL (0-130); Magnesium 2.1 mg/dL (1.6-2.6); Osmolality,Calculated 280 (275-295); Phosphorous 5.1 mg/dL (2.4-5.1); Potassium 4.2 mMol/L (3.4-5.1); Sodium 137 mMol/L (136-145); Total Protein 6.2 gm/dL (5.7-8.2); Triglycerides 96 mg/dL (30-150); eGFR 17 See Note
[2025-02-11 08:00] VITALS: BP 92/62; PULSE 75; RESP 17; TEMP 36.2; O2SAT 97
[2025-02-11] MEDS: HEPARIN SOD INJ 5000 UNIT/ML VIAL SC (08:30)
[2025-02-11] MEDS: PANTOPRAZOLE 40 MG TABLET PO (08:30)
--- NOTE | 2025-02-11 11:14 | PD.RESCONSUL ---
HPI Data of Consult Patient: known to practice within the last 3 years Consult date: 02/10/25 Requesting Physician: Isabel George DO Admitting Provider: Isabel George DO Attending Provider: Isabel George DO Primary Care Provider: Niesha Munoz NP Consult Narrative Reason for consult: Hyperkalemia, ISAIAH on CKD History of present illness: Ms. Early is a 69-year-old female with past medical history of CKD stage IV, bipolar disorder, chronic lithium use, major depressive disorder, hypothyroidism, GERD, obesity and unspecified tremors who presented to [facility] emergency department on 02/10/2025 for hyperkalemia. Patient was seen outpatient in Dr. Ashley's office, labs were significant for hyperkalemia, patient had significant ISAIAH on CKD stage IV and was advised to go to emergency department for further evaluation. Patient had no current active complaints, denied any palpitations, syncope, near syncope, dizziness, chest pain or shortness of breath. Patient does complain of some fatigue but reports that her overall health has been good. Patient was recently discharged on 01/19/2025 from [facility] secondary to acute toxic encephalopathy due to acute on chronic lithium toxicity. Patient was discharged on amiloride 5 mg 4 times daily and her lithium dose was decreased on discharge. Patient reports that she has not followed up with her neurologist or psychiatrist since discharge. Patient presented with sodium 132, potassium 6.6, chloride 108, bicarb 19.1, BUN 38, creatinine 3.1, EGFR 16, glucose 119, osmolality 274, calcium 10.8. Patient was given Kayexalate x 1, Lasix x 1 in ED with acute hyperkalemia treatment. Patient eventually received 1 L NS bolus followed by 1 L maintenance fluid NS. 02/11/2025: Patient's sodium improved to 137 today, potassium 4.2, BUN/creatinine improved to 34/2.9 GFR is 17. Corrected calcium 10.2. Patient otherwise feels well today, has no current complaints. Reports feeling thirsty. Patient's amiloride will be resumed at 5 mg p.o. daily, patient to continue Weinert new dose changed to 150 mg daily, patient to follow-up outpatient with nephrology in 1 to 2 weeks, to recheck BMP and reassess the renal function. cc:: cc: Isabel George DO Review of Systems Review of Systems Systems Reviewed: All systems reviewed, normal except as documented Past Medical History Past Medical History NEUROLOGIC: Negative Neurological Disorders or Seizures CARDIAC: Negative Cardiac Disorders or Congestive Heart Failure RESPIRATORY: Negative Chronic Obstructive Pulmonary Disease (COPD) GENITOURINARY: Positive Genitourinary Disorders; Negative Renal Disease MUSCULOSKELETAL: Negative Musculoskeletal Disorders ENDOCRINE: Negative Diabetes Mellitus Type 1 or Diabetes Mellitus Type 2 PSYCHO/SOCIAL: Positive Bipolar Disorder and Depression OTHER HISTORY: Negative Blood Transfusions or Anesthesia Reactions Surgical History SURGICAL: Negative Joint Replacement Social History SMOKING STATUS: Never smoker SUBSTANCE USE: does not use Exam Vital Signs Temp Pulse Resp BP Pulse Ox O2 Del Method 97.1 F 75 17 92/62 97 Room Air 02/11/25 08:00 02/11/25 08:00 02/11/25 08:00 02/11/25 08:00 02/11/25 08:00 02/11/25 08:00 Narrative Exam General Appearance: Alert & Oriented X3, well-nourished female who is lying in bed in no acute distress HEENT: Skull symmetrical and atraumatic. Conjunctivae pink and moist. Pupils equal, round, reactive to light and accommodation (PERRL). External ear without lesion or discharge. Straight, nares patient, mucosa pink, no discharge. No thyroid nodule appreciated. No cervical lymphadenopathy. Cardio: Normal Rate and Rhythm with S1 and S2 heart sounds. No murmurs or extra heart sounds auscultated. No bruits on carotid auscultation. No peripheral edema or cyanosis. Lungs: Symmetric with good expansion. Chest and back non-tender. Breath sounds vesicular without crackles, wheezing or rhonchi Abdomen: Non-tender, Non-distended, Normal Reactive Bowel Sounds Neuro: Alert, cooperative, oriented to person, place, and time. Speech clear. CN grossly intact. Upper motor strength 5/5 and Lower motor strength 5/5. Sensation intact. Tremor bilateral upper extremity noted. Results Labs 02/11/25 04:35 02/11/25 04:35 Labs: Short CBC 02/10/25 02/11/25 Range/Units 16:09 04:35 WBC 12.4 H 9.9 (3.6-11.0) Thou/mm3 Hgb 13.6 11.7 L (12.0-16.0) g/dL Hct 39.7 33.9 L (36.0-46.0) % Plt Count 379 D 331 D (140-440) Thou/mm3 BMP 02/10/25 02/11/25 15:17 04:35 Sodium 133 L 137 Potassium 5.7 H D 4.2 D Chloride 109 H 108 H Carbon Dioxide 16.8 L 20.7 BUN 36 H 34 H Creatinine 3.1 H 2.9 H Glucose 58 L D 85 Calcium 12.7 H* D 10.1 D Liver Function 02/10/25 02/11/25 Range/Units 15:17 04:35 Total Bilirubin 0.4 0.4 (0.3-1.2) mg/dL AST 30 19 (0-34) U/L ALT 18 14 (10-49) U/L Alkaline Phosphatase 93 79 (46-116) U/L Albumin 4.7 3.9 D (3.4-4.8) gm/dL Urine 02/10/25 Range/Units 18:06 Urine Color Colorless A (Lt Yel-Yel) Urine Clarity Clear (Clear/Hazy) Urine pH 6.0 (5.0-7.0) Ur Specific [place] 1.007 (1.001-1.035) Urine Protein Negative (Neg - Trace) Urine Glucose (UA) Negative (Negative) Quality Measures Quality Measures none Advance care planning discussed with:: patient Medications Home Medications and Allergies Home Medications ?Medication ?Instructions ?Recorded ?Confirmed ?Type mirtazapine 15 mg tablet (Remeron) 30 mg PO HS #0 tabs 07/14/15 02/11/25 History propranolol 10 mg tablet 10 mg PO Q6H 11/17/20 02/11/25 History quetiapine 300 mg tablet 300 mg PO HS 11/13/23 02/11/25 History vitamin B complex-vitamin C-folic 1 tab PO Q24H 01/16/25 02/11/25 History acid 0.8 mg tablet (Sho-Droothy) Allergies Allergy/AdvReac Type Severity Reaction Status Date / Time Sulfa (Sulfonamide Allergy Unknown Verified 02/12/25 03:38 Antibiotics) Visit Medications Acetaminophen (Acetaminophen 325 Mg Tablet) 650 mg PO Q6H PRN PRN Reason: Mild Pain 1-3 or Fever >100.3 Stop: 03/12/25 14:10 Dextrose (Dextrose 50%-Water Inj 50 Ml Syringe) 25 ml IV Q15MIN PRN PRN Reason: BG 50-70 responsive npo pt Stop: 03/12/25 13:18 Last Admin: 02/10/25 13:55 Dose: 25 ml Dextrose (Dextrose 50%-Water Inj 50 Ml Syringe) 50 ml IV Q15MIN PRN PRN Reason: BG <50 OR BG <70 & pt unresponsive Stop: 03/12/25 13:18 Glucagon (Glucagon Inj 1 Mg Vial) 1 mg IM Q15MIN PRN PRN Reason: BG <70, and no IV access Heparin Sodium (Porcine) (Heparin Sod Inj 5000 Unit/Ml Vial) 5,000 unit SC Q12HR CHERYL Stop: 02/24/25 20:59 Last Admin: 02/11/25 08:30 Dose: 5,000 unit Hydralazine HCl (Hydralazine Inj 20 Mg/Ml Vial) 10 mg IV Q4HR PRN PRN Reason: Hypertension Stop: 03/12/25 18:19 Mirtazapine (Mirtazapine 15 Mg Tablet) 30 mg PO HS CHERYL Stop: 03/12/25 20:59 Last Admin: 02/10/25 21:36 Dose: 30 mg Ondansetron HCl (Ondansetron Inj 2 Mg/Ml Inj 2 Ml) 4 mg IV Q6H PRN; Protocol PRN Reason: NAUSEA OR VOMITING Stop: 03/12/25 14:10 Pantoprazole Sodium (Pantoprazole 40 Mg Tablet) 40 mg PO QDAY CHERYL Stop: 03/12/25 14:14 Last Admin: 02/11/25 08:30 Dose: 40 mg Quetiapine Fumarate (Quetiapine Fumarate 100 Mg Tablet) 300 mg PO HS CHERYL Stop: 03/12/25 20:59 Last Admin: 02/10/25 21:36 Dose: 300 mg Sennosides (Senna Tablet) 1 tab PO QDAY CHERYL; Protocol Stop: 03/12/25 14:14 Last Admin: 02/11/25 08:30 Dose: Not Given Sodium Chloride (Sodium Chloride Rt Eveline 0.9% 3 Ml Nebu) 3 ml INH PRN PRN PRN Reason: SOLN Stop: 03/12/25 13:13 Last Admin: 02/10/25 13:29 Dose: 3 ml Vitamin B Complex/Vit C/Folic Acid (Vit B12/Vit C/Fa (Nephrovite) Tablet) 1 tab PO Q24H CHERYL Stop: 03/12/25 15:44 Last Admin: 02/10/25 18:23 Dose: 1 tab Discontinued Medications Albuterol (Albuterol Rt 2.5 Mg/0.5 Ml Nebu) 5 mg INH X1 ONE Stop: 02/10/25 13:15 Last Admin: 02/10/25 13:29 Dose: 5 mg Calcium Chloride (Calcium Chloride 10% Inj 10 Ml Syrg) 10 ml IV X1 ONE Stop: 02/10/25 13:20 Last Admin: 02/10/25 13:37 Dose: 10 ml Citric Acid/Sodium Citrate (Citric Acid/Sodium Citr 15 Ml Udc (Bicitra)) 30 ml PO X1 ONE Stop: 02/10/25 17:56 Last Admin: 02/10/25 20:14 Dose: 30 ml Furosemide (Furosemide Inj 10 Mg/Ml Vial 2 Ml) 40 mg IVP X1 ONE Stop: 02/10/25 13:20 Last Admin: 02/10/25 13:38 Dose: 40 mg Dextrose (D10w 1000 Ml) 1,000 mls @ 100 mls/hr IV .Q10H CHERYL Stop: 02/10/25 23:29 Last Infusion: 02/10/25 14:00 Dose: 0 mls/hr Sodium Chloride (Ns) 1,000 mls @ 999 mls/hr IV .Q1H1M ONE Stop: 02/10/25 14:45 Last Admin: 02/10/25 13:56 Dose: 999 mls/hr Sodium Chloride (Ns) 1,000 mls @ 80 mls/hr IV .[id number] ONE Stop: 02/11/25 04:49 Last Admin: 02/10/25 18:22 Dose: Not Given Sodium Chloride (Ns) 1,000 mls @ 100 mls/hr IV .Q10H ONE Stop: 02/11/25 02:19 Last Admin: 02/10/25 20:04 Dose: 100 mls/hr Insulin Human Regular (Insulin Hum Regular 1 Unit/0.01 Ml (Per Unit)) 5 unit IV X1 ONE Stop: 02/10/25 13:20 Last Admin: 02/10/25 13:52 Dose: 5 unit Sodium Polystyrene Sulfonate (Sod Polystyrene Sulfon Susp 15 Gm/60 Ml Btl) 30 gm PO X1 ONE Stop: 02/10/25 13:20 Last Admin: 02/10/25 13:42 Dose: 30 gm Assessment & Plan Plan Ms. Early is a 69-year-old female with past medical history of CKD stage IV, bipolar disorder, chronic lithium use, major depressive disorder, hypothyroidism, GERD, obesity and unspecified tremors who presented to [facility] emergency department on 02/10/2025 for hyperkalemia. Patient was seen outpatient in Dr. Ashley's office, labs were significant for hyperkalemia, patient had significant ISAIAH on CKD stage IV and was advised to go to emergency department for further evaluation. Patient had no current active complaints, denied any palpitations, syncope, near syncope, dizziness, chest pain or shortness of breath. Patient does complain of some fatigue but reports that her overall health has been good. #ISAIAH on CKD IV, resolving #Mild Hyponatremia, Hypo-osmolar, resolved #Metabolic Acidosis, non anion gap, resolved #Hyperkalemia, resolved #Nephrogenic diabetes insipidus #Hypercalcemia, resolved Patient presented with sodium 132, potassium 6.6, chloride 108, bicarb 19.1, BUN 38, creatinine 3.1, EGFR 16, glucose 119, osmolality 274, calcium 10.8. Patient was given Kayexalate x 1, Lasix x 1 in ED with acute hyperkalemia treatment. Patient eventually received 1 L NS bolus followed by 1 L maintenance fluid NS 02/11: Patient's sodium improved to 137 today, potassium 4.2, BUN/creatinine improved to 34/2.9 GFR is 17. Corrected calcium 10.2. Patient otherwise feels well today, has no current complaints. Reports feeling thirsty. Patient's amiloride will be resumed at 5 mg p.o. daily, patient to continue Weinert new dose changed to 150 mg daily, patient to follow-up outpatient with nephrology in 1 to 2 weeks, to recheck BMP and reassess the renal function. Recommendations: - Resume amiloride 5 mg p.o. daily - Follow-up outpatient with renal panel/BMP in 1 week - Maintain adequate hydration, about 2 L daily - Follow-up with psychiatrist outpatient to optimize lithium dosing - Avoid nephrotoxic agents for example NSAIDs - Renally dose medications #Acute on Chronic [place] Toxicity #Bradycardia, asymptomatic #History of GERD #Major Depression Disorder #Bipolar Disorder #Hypothyroidism, by history Management as per primary team Case discussed with Attending Dr. Ashley. Amilcar Oliveira PGY1 Disclaimer: This note was dictated by speech recognition. Minor errors in national park ranger may be present due to voice recognition software. Attending Provider Attestation/Addendum Labs are reviewed. seen and examined.agree with assessmsnt and plan and findings by resident. Alan ashley MD
[2025-02-11 12:00] VITALS: BP 107/66; PULSE 87; RESP 18; TEMP 36.2; O2SAT 99
--- NOTE | 2025-02-11 14:12 | ESDS_ITS ---
<Statement entered by Isabel George DO - 02/12/25 11:57> I, Isabel George DO, attest that I was physically present for the myers portions of the service and evaluated the patient with the resident and I reviewed and discussed the case with the resident and agree with the resident's findings and plans of care as documented above Planned Discharge Date 02/11/25 DS: Providers Provider Date of admission: 02/10/25 17:14 Primary care physician: Niesha Munoz NP Admitting Provider: Isabel George DO Attending Provider on Admission: Isabel George DO Consults: 02/10/25 13:49 Consult to Nephrology Stat Comment: isaiah Consulting Provider: Alan Ashley 02/10/25 19:40 Referral Infection Control Routine Comment: Reason for Infection Control Referral: Readmitted within 30 days Attending Provider on DC: Wallace Resendiz MD Discharging Provider: Wallace Resendiz MD DS: Diagnosis Problem List Completed Was Problem List Reviewed/Reconciled?: Yes Hospital Course Hospital Course Hospital course: 69-year-old female with past medical history of CKD stage IV, history of bipolar disorder with multiple suicidal ideations in the past, history of depression, GERD presenting on 02/10/2025 after nephrology clinic noticed that she had hyperkalemia. In the ED, patient was normotensive, bradycardic, mildly tachypneic but saturating well on room air. Labs pertinent for potassium of 6.6 along with ISAIAH on CKD and hyperkalemia. Patient was admitted for management of the ISAIAH along with temporizing measures for the hyperkalemia. Patient's kidney function is returning back to baseline and potassium is now back within normal limits. Suspicion was that high dose amiloride most likely caused the hyperkalemia; moreover, recommendations were to decrease dosage to once a day. Patient's lithium was also changed from 150 mg twice a day to once a day as lithium levels were slightly elevated checking. Patient is cleared for discharge with improvement of renal function and potassium by nephrology. Patient will be discharged medically stable with the following strict instructions as noted below. Please take amiloride 5 mg only once a day by mouth Please take [place] 150 mg once a day by mouth and follow-up with your PCP to check [place] levels before restarting this medication Continue all other home medications as prescribed Please follow-up with your PCP within 1-2 weeks after discharge Please follow-up with Dr. Ashley (nephrology) within 1-2 weeks after discharge Please follow-up with both Dr. Thayer (neurology) and psychiatry in [place] within 1-2 weeks If your symptoms worsen or if you develop new chest pain, shortness of breath, palpitations, dizziness or headaches - please come back to the ED immediately. Hospital Diagnosis: #ISAIAH on CKD IV #Mild Hyponatremia, Hypo-osmolar #Metabolic Acidosis, non anion gap #Hyperkalemia #Acute on Chronic [place] Toxicity #Bradycardia, asymptomatic #Hypercalcemia #history of GERD #Major Depression Disorder #Bipolar Disorder #Hypothyroidism Wallace Resendiz, PGY-1 Status at Discharge Overall status at discharge: patient is progressing back to baseline Time Spent with Patient Time attestation: Total time spent providing and/or coordinating discharge services: 45 minutes Time spent: Greater than 30 minutes Exam Vital Signs Temp Pulse Resp BP Pulse Ox O2 Del Method 97.2 F 87 18 107/66 99 Room Air 02/11/25 12:02/11/25 12:02/11/25 12:02/11/25 12:02/11/25 12:02/11/25 12:00 Narrative Exam General Appearance: Alert & Oriented X3, well-nourished female who is lying in bed in no acute distress HEENT: Skull symmetrical and atraumatic. Conjunctivae pink and moist. Pupils equal, round, reactive to light and accommodation (PERRL). External ear without lesion or discharge. Straight, nares patient, mucosa pink, no discharge. No thyroid nodule appreciated. No cervical lymphadenopathy. Cardio: Normal Rate and Rhythm with S1 and S2 heart sounds. No murmurs or extra heart sounds auscultated. No bruits on carotid auscultation. No peripheral edema or cyanosis. Lungs: Symmetric with good expansion. Chest and back non-tender. Breath sounds vesicular without crackles, wheezing or rhonchi Abdomen: Non-tender, Non-distended, Normal Reactive Bowel Sounds Neuro: Alert, cooperative, oriented to person, place, and time. Speech clear. CN grossly intact. Upper motor strength 5/5 and Lower motor strength 5/5. Sensation intact. Discharge Plan Plan Patient Disposition: HOME (Self Care) Disposition Comment: Stable Patient condition on transfer: Stable Care Plan Goals: Please take amiloride 5 mg only once a day by mouth Please take [place] 150 mg once a day by mouth and follow-up with your PCP to check [place] levels before restarting this medication Continue all other home medications as prescribed Please follow-up with your PCP within 1-2 weeks after discharge Please follow-up with Dr. Ashley (nephrology) within 1-2 weeks after discharge Please follow-up with both Dr. Thayer (neurology) and psychiatry in [place] within 1-2 weeks If your symptoms worsen or if you develop new chest pain, shortness of breath, palpitations, dizziness or headaches - please come back to the ED immediately. Prescriptions/Referrals Prescriptions/Med Rec: New amiloride 5 mg tablet 5 mg PO QDAY 30 Days Qty: 30 0RF lithium carbonate 150 mg capsule 150 mg PO QDAY 30 Days Qty: 30 0RF Continued propranolol 10 mg tablet 10 mg PO Q6H mirtazapine [Remeron] 15 MG tablet 30 mg PO HS Qty: 0 Sho-Dorothy 0.8 mg tablet 1 tab PO Q24H Patient Comments: TAKE 1 TABLET BY MOUTH EVERY DAY quetiapine 300 mg tablet 300 mg PO HS Patient Comments: TAKE 1 TABLET BY MOUTH EVERY DAY Discontinued lithium carbonate 150 mg Capsule 150 mg PO BID 30 Days Qty: 60 0RF amiloride 5 mg Tablet 5 mg PO QID 30 Days Qty: 120 0RF Referrals: Niesha Munoz NP [Primary Care Provider] - Alan Ashley MD [Physician] - Vikram Thayer MD [Physician] - Outpatient Orders (i.e. Home Health, Labs, Imaging): [place] (Routine) Location: None Selected Ordered By: Wallace Resendiz Patient/Caregiver Discharge Instructions Education Materials: Kidney Disease Potassium in Diet, Kidney Disease Reducing Potassium, Acute Kidney Failure Dc, Hyperkalemia Dc Print Language: Botswanan Stand Alone Forms: Melissa Award Info., Patient Portal Info Letter Discharge Order Discharge Orders: Discharge (Routine); Ordered 02/11/25 Ordered By: Wallace Resendiz Quality Discharge Quality Measures VTE prophylaxis
--- NOTE | 2025-02-11 15:35 | PC.NURSE ---
Per MD Resendiz cont to dc pt as md dallas baldwin the dc as well and f/u with MD Ashley in 1 wk.
[2025-02-11 16:00] VITALS: BP 98/67; PULSE 83; RESP 18; TEMP 36.4; O2SAT 98
== END 2025-02-11 17:03 | disposition home or self-care (01) | DRG 641 ==
LOC: SERX 14:29 → SERHOLD 14:53 → S3NX 19:15
PROVIDERS: Nurse Practitioner Family; Admitting Provider Internal Medicine; Emergency Provider Emergency Medicine; PCP Nurse Practitioner Family; Visit Provider Internal Medicine
DX: E87.5 Hyperkalemia (principal); N18.4 Chronic kidney disease, stage 4 (severe); N17.9 Acute kidney failure, unspecified; N25.1 Nephrogenic diabetes insipidus; R45.851 Suicidal ideations; E87.1 Hypo-osmolality and hyponatremia; E87.20 Acidosis, unspecified; F31.9 Bipolar disorder, unspecified; K21.9 Gastro-esophageal reflux disease without esophagitis; E83.52 Hypercalcemia; N27.1 Small kidney, bilateral; N28.1 Cyst of kidney, acquired; E03.9 Hypothyroidism, unspecified; T43.595A Adverse effect of other antipsychotics and neuroleptics, initial encounter; R00.1 Bradycardia, unspecified; F41.9 Anxiety disorder, unspecified; Z79.899 Other long term (current) drug therapy; Z91.51 Personal history of suicidal behavior
CPT/HCPCS: 36415; 36600; 76770; 80053; 80061; 80178; 81001; 82043; 82436; 82570; 82803; 83735; 84100; 84133; 84300; 84439; 85025; 87081; 93005; 93225; 94640; 96374; 96375; 99285; J1644; J1815; J1940; J7030; A9270

== ENCOUNTER → 2025-02-10 | Outpatient (CLI) | payer MEDICARE, BC, SELFPAY ==
[2025-02-10 12:01] LABS: Albumin, Serum 4.6 gm/dL (3.4-4.8); Anion Gap 5 (7-16); BUN/Creatinine Ratio 12 Ratio (12-20); Blood Urea Nitrogen 38 mg/dL (9-23); Calcium 10.8 mg/dL (8.3-10.6); Calcium (Corrected) 10.8 mg/dL (8.5-10.1); Carbon Dioxide 19.1 mMol/L (20.0-31.0); Chloride 108 mMol/L (98-107); Creatinine (Component) 3.1 mg/dL (0.6-1.3); Glucose 119 mg/dL (74-106); Osmolality,Calculated 274 (275-295); Phosphorous 3.5 mg/dL (2.4-5.1); Sodium 132 mMol/L (136-145); eGFR 16 See Note
[2025-02-10 12:02] LABS: Potassium 6.6 mMol/L (3.4-5.1)
[2025-02-10 13:31] LABS: Lithium 1.57 mEq/L (1.00-1.20)
== END | disposition home or self-care (01) ==
PROVIDERS: PCP Nurse Practitioner Family; Referring Provider Nurse Practitioner Family; Visit Provider Internal Medicine
DX: N18.4 Chronic kidney disease, stage 4 (severe) (principal); D63.1 Anemia in chronic kidney disease; F32.9 Major depressive disorder, single episode, unspecified; D50.9 Iron deficiency anemia, unspecified; E55.9 Vitamin D deficiency, unspecified; E03.9 Hypothyroidism, unspecified; T50.901D Poisoning by unspecified drugs, medicaments and biological substances, accidental (unintentional), subsequent encounter
CPT/HCPCS: 36415; 80069; 80178; 84443

== ENCOUNTER 2025-02-12 03:36 | Emergency (ER) | payer MEDICARE, BC, SELFPAY ==
[2025-02-12 03:39] VITALS: BP 108/75; PULSE 79; RESP 20; TEMP 36.9; O2SAT 98
[2025-02-12 03:40] VITALS: PULSE 98
[2025-02-12 03:44] VITALS: BMI 25.9
--- NOTE | 2025-02-12 03:56 | PD.EDFALL ---
ED Fall Injury RME/HPI General Chief Complaint: Weakness Stated Complaint: WEAKNESS Time Seen by Provider: 02/12/25 03:43 Arrival date/time: 02/12/25 03:36 RME / HPI RME / HPI Narrative: DR. RICK MAIN ED EVALUATION: 69 y/o female with Hx of Depression and Bipolar Disorder presents to ED c/o back pain s/p fall x last night. States she felt well enough to go to the restroom on her own, then was headed back to her bedroom when she fell. Patient does not recall passing out, but admits feeling sudden weakness prior to fall. She was not able to get back up on her own and remained on the ground until her daughter found her. Patient denies leg, arm, abdominal, hip pain or any other associated symptoms or aggravating factors. No modifying factors, no radiation, no migration. Related Data Home Medications ?Medication ?Instructions ?Recorded ?Confirmed mirtazapine 15 mg tablet (Remeron) 30 mg PO HS #0 tabs 07/14/15 02/11/25 propranolol 10 mg tablet 10 mg PO Q6H 11/17/20 02/11/25 quetiapine 300 mg tablet 300 mg PO HS 11/13/23 02/11/25 vitamin B complex-vitamin C-folic 1 tab PO Q24H 01/16/25 02/11/25 acid 0.8 mg tablet (Sho-Dorothy) Previous Rx's ?Medication ?Instructions ?Recorded amiloride 5 mg tablet 5 mg PO QDAY 1 month #30 tabs 02/11/25 lithium carbonate 150 mg capsule 150 mg PO QDAY 1 month #30 caps 02/11/25 Allergies Allergy/AdvReac Type Severity Reaction Status Date / Time Sulfa (Sulfonamide Allergy Unknown Verified 02/12/25 03:38 Antibiotics) Review of Systems Review of Systems Systems Reviewed: All systems reviewed, normal except as documented Narrative Review of Systems: Gen: No fever, no chills, no weight loss EYES: No discharge, no visual changes, no pain HEENT: No ear pain, no congestion, no sore throat PULM: No shortness of breath, no cough, no congestion CV: No chest pain, no dyspnea on exertion, no palpitations GI: No nausea, no vomiting, no diarrhea, no pain, no constipation : No frequency, no urgency, no dysuria Musc/skel: No hip, arm, or leg pain Skin: No rash. Psyc: No hallucinations, no depression Heme/Lymph: No easy bleeding or bruising tendencies Neuro: Positive weakness, no headache Past Medical History Past Medical History GENITOURINARY: Positive Genitourinary Disorders PSYCHO/SOCIAL: Positive Bipolar Disorder and Depression ED Exam Narrative Physical exam: GENERAL APPEARANCE: alert and oriented x 4, well-developed, well-nourished, no acute distress VITALS: All vitals were reviewed and the pulse ox is 95% on room air, which is normal according to my interpretation. HEENT: Normocephalic, atraumatic; pupils equal, round, reactive to light; EOMI; mucous membranes pink, moist; oropharynx clear NECK: Supple LUNGS: CTABL; no wheezes, no rales, no rhonchi HEART: Regular rate, regular rhythm; normal S1, S2; no murmurs ABDOMEN: non distended; normal BS; soft, no tenderness, no guarding, no rebound; no masses, no organomegaly, no hernia BACK: TTP of upper lumbar lower thoracic area EXTREMITIES: atraumatic; no edema NEUROLOGIC: awake; alert and oriented x4; cranial nerves II-XII grossly intact; no focal sensory or motor deficits PSYCHIATRIC: appropriate mood and affect SKIN: warm, dry, normal color; no rashes Course Course Course Narrative: 0420: Order labs, T-spine and L-spine x-rays. 0434: Tylenol ordered. 0600: Care assumed by Dr. Warren (incoming emergency physician). Past medical, surgical, social and family history reviewed. Vitals and home medications reviewed. Results and treatment plan discussed. They will assume the care of the patient at this time and will follow the patient, pending X-Ray results. Quality Measures none Orders Category Date Time Status Discharge Routine Discharge 02/12/25 07:00 Active XR lumbar spine 2-3V Stat Exams 02/12/25 04:20 Completed XR thoracic spine 3V Stat Exams 02/12/25 04:20 Completed BMP [Basic Metabolic Panel] Stat Lab 02/12/25 05:48 Completed Acetaminophen Tab [Tylenol Tab] Med 02/12/25 04:34 Discontinued 650 mg PO X1 ONE Vital Signs Vital signs: Vital Signs Temperature 98.4 F 02/12/25 03:39 Pulse Rate 79 02/12/25 03:39 Respiratory Rate 20 02/12/25 03:39 Blood Pressure 108/75 02/12/25 03:39 Pulse Oximetry (%) 98 02/12/25 03:39 Oxygen Delivery Method Room Air 02/12/25 03:39 Fall MDM Narrative MDM Narrative:: Scribe Attestation: Audrey Light, am scribing for and in the presence of Dr. Rick. Provider Notation: Although this document has been carefully reviewed, there may still be some phonetic and other typographical errors. These errors are purely grammatical due to imperfections in the software program and should not be construed in any way to compromise the substance of the patient's medical care during this visit. Patient data External records reviewed:: [facility] previous records and EMS form Clinical information provided by:: patient and EMS Social determinants that could affect healthcare access:: none Patient has the following chronic illnesses:: Depression, Bipolar Disorder How is presenting disease/condition affected by chronic disease/condition?: uneffected by Evaluation data The following diagnostics were reviewed and interpreted by me:: lab results and radiology exam(s) Lab and/or radiology exams considered but not ordered:: None. Interpretation Summary: RADIOLOGY Thoracic Spine X-Ray: Pending official radiology read. Lumbar Spine X-Ray: Pending official radiology read. Medications / Prescriptions Medications or Prescriptions considered but not ordered:: None. Medication administrations:: Medication Administration History Discontinued Medications Acetaminophen (Acetaminophen 325 Mg Tablet) 650 mg PO X1 ONE Stop: 02/12/25 04:35 Last Admin: 02/12/25 04:40 Dose: 650 mg Documented By: BD See above if any. Consultations Consultation(s) initiated? (list below): No Diagnosis Fall Differential Diagnosis: syncope, compression fracture, concussion with loss of consciousness, concussion without loss of consciousness and other (Contusion vs Abrasion) Most likely diagnosis given after review of the tests above:: Insomnia Admission Indicated Admission indicated?: not indicated (Pending official radiology reads and further wwork-up.) Admission Request Was there a request for admission?: No Disposition Plan Disposition Plan: other (specify) (Pending radiology read and further work-up.) Discharge Plan Plan Patient Disposition: HOME (Self Care) Patient condition on transfer: Stable Prescriptions/Referrals Prescriptions/Med Rec: No Action propranolol 10 mg tablet 10 mg PO Q6H mirtazapine [Remeron] 15 MG tablet 30 mg PO HS Qty: 0 Sho-Dorothy 0.8 mg tablet 1 tab PO Q24H Patient Comments: TAKE 1 TABLET BY MOUTH EVERY DAY amiloride 5 mg tablet 5 mg PO QDAY 30 Days Qty: 30 0RF lithium carbonate 150 mg capsule 150 mg PO QDAY 30 Days Qty: 30 0RF quetiapine 300 mg tablet 300 mg PO HS Patient Comments: TAKE 1 TABLET BY MOUTH EVERY DAY Referrals: Niesha Munoz NP [Primary Care Provider] - In 1 week Problem List Clinical Impression: Chronic renal disease, Vaso vagal episode Patient/Caregiver Discharge Instructions Discharge Activity: activity as tolerated Education Materials: CKD Dc, ED Near-Fainting- Vagal Reaction Additional Instructions: Follow up with your doctor within 1 week. Return if you develop any new or worsening symptoms. Print Language: Irish Stand Alone Forms: Melissa Award Info., Patient Portal Info Letter
--- NOTE | 2025-02-12 03:56 | PC.NURSE ---
PT BIB [facility] FOR WEAKNESS PER EMS FAMILY STATED THEY TOOK B/P AND WAS IN THE 60 PER EMS B/P WAS 114/88. PT WAS D/C YESTERDAY FOR HYPERKALEMIA. PER EMS AND PT SHE STATES SHE HAD A FALL BUT NOT SURE OF LOC. DAUGHTER HELPED UP. WHEN TALKIING TO PT SHE HAS DIFFICULTY ANSWERING QUESTIONS BUT IS AAOX4
--- NOTE | 2025-02-12 04:20 | XR_ITS ---
Examination: Thoracic spine 3 views TECHNIQUE: AP lateral coned lateral upper dorsal spine 3 views Exam date and time: February 12, 2025 0505 hours INDICATIONS: Patient fell today with injury to the upper back, upper back pain. FINDINGS: Prominent osteopenia Chronic wedging, mild, lower dorsal vertebral bodies. No acute thoracic fracture. [id number] diffuse thoracic degenerative disc disease IMPRESSION: No acute thoracic fracture
--- NOTE | 2025-02-12 04:20 | XR_ITS ---
Examination: Lumbar spine 3 views TECHNIQUE: AP lateral: Lateral lower lumbar spine 3 views. Exam date timed: February 12, 2025, 0504 hours INDICATIONS: Patient fell today with injury to the lower back, lower back pain FINDINGS: Chronic-appearing wedging T12 vertebral body but clinical correlation advise No acute lumbar fracture Mild lumbar spondylosis IMPRESSION: Chronic-appearing wedging T12 vertebral body, but clinical correlation is advised
[2025-02-12] MEDS: ACETAMINOPHEN 325 MG TABLET 650 MG PO (04:40)
[2025-02-12 06:00] VITALS: BP 93/63; PULSE 75; RESP 18; TEMP 36.9; O2SAT 99
[2025-02-12 06:25] LABS: Anion Gap 9 (7-16); BUN/Creatinine Ratio 9 Ratio (12-20); Blood Urea Nitrogen 29 mg/dL (9-23); Calcium 9.8 mg/dL (8.3-10.6); Chloride 106 mMol/L (98-107); Creatinine (Component) 3.1 mg/dL (0.6-1.3); Estimated Creatinine Clearance 17.4 mL/min (>60); Glucose 107 mg/dL (74-106); Osmolality,Calculated 277 (275-295); Potassium 4.2 mMol/L (3.4-5.1); Sodium 136 mMol/L (136-145); eGFR 16 See Note
--- NOTE | 2025-02-12 06:54 | EDNOTE_ITS ---
Emergency Room Addendum <Mel Laura - Last Filed: 02/12/25 06:55> Addendum Narrative: 0600: Care assumed from Dr. Rick, the previous shift emergency physician. Past medical, surgical, social and family history reviewed. Vitals and home medications reviewed. I will assume the care of the patient at this time, pending XR results and final disposition. Please refer to the emergency department record for history and examination from initial visit.?The following addendum documentation note is intended to reflect any pending information, findings, or radiology results not included in the patient?s initial chart. RADIOLOGY Ordering Physician: Queenie Rick MD Date of Service: 02/12/25 Procedure(s): XR lumbar spine 2-3V Accession Number(s): [id number] cc: Niesha Munoz NP; Mat Garza MD; Queenie Rick MD~ Examination: Lumbar spine 3 views TECHNIQUE: AP lateral: Lateral lower lumbar spine 3 views. Exam date timed: February 12, 2025, 0504 hours INDICATIONS: Patient fell today with injury to the lower back, lower back pain FINDINGS: Chronic-appearing wedging T12 vertebral body but clinical correlation advise No acute lumbar fracture Mild lumbar spondylosis IMPRESSION: Chronic-appearing wedging T12 vertebral body, but clinical correlation is advised Dictated By:Mat Garza MD Signed By:<Electronically signed by Mta Garza MD in OV>02/12/25 0639 Ordering Physician: Queenie Rick MD Date of Service: 02/12/25 Procedure(s): XR thoracic spine 3V Accession Number(s): [id number] cc: Niesha Munoz NP; Mat Garza MD; Queenie Rick MD~ Examination: Thoracic spine 3 views TECHNIQUE: AP lateral coned lateral upper dorsal spine 3 views Exam date and time: February 12, 2025 0505 hours INDICATIONS: Patient fell today with injury to the upper back, upper back pain. FINDINGS: Prominent osteopenia Chronic wedging, mild, lower dorsal vertebral bodies. No acute thoracic fracture. [id number] diffuse thoracic degenerative disc disease IMPRESSION: No acute thoracic fracture Dictated By:Mat Garza MD Signed By:<Electronically signed by Mat Garza MD in OV>02/12/25 0638 <Oz Warren MD - Last Filed: 02/12/25 06:58> Addendum Narrative: 0600: Care assumed from Dr. Rick, the previous shift emergency physician. Past medical, surgical, social and family history reviewed. Vitals and home medications reviewed. I will assume the care of the patient at this time, pending XR results and final disposition. Please refer to the emergency department record for history and examination from initial visit.?The following addendum documentation note is intended to reflect any pending information, findings, or radiology results not included in the patient?s initial chart. Patient states she felt lightheaded before sitting down quickly. She feels fine at DC. Her K is normal and her Cr is at her baseline. Will DC. RADIOLOGY Ordering Physician: Queenie Rick MD Date of Service: 02/12/25 Procedure(s): XR lumbar spine 2-3V Accession Number(s): [id number] cc: Niesha Munoz NP; Mat Garza MD; Queenie Rick MD~ Examination: Lumbar spine 3 views TECHNIQUE: AP lateral: Lateral lower lumbar spine 3 views. Exam date timed: February 12, 2025, 0504 hours INDICATIONS: Patient fell today with injury to the lower back, lower back pain FINDINGS: Chronic-appearing wedging T12 vertebral body but clinical correlation advise No acute lumbar fracture Mild lumbar spondylosis IMPRESSION: Chronic-appearing wedging T12 vertebral body, but clinical correlation is advised Dictated By:Mat Garza MD Signed By:<Electronically signed by Mat Garza MD in OV>02/12/25 0639 Ordering Physician: Queenie Rick MD Date of Service: 02/12/25 Procedure(s): XR thoracic spine 3V Accession Number(s): [id number] cc: Niesha Munoz NP; Mat Garza MD; Queenie Rick MD~ Examination: Thoracic spine 3 views TECHNIQUE: AP lateral coned lateral upper dorsal spine 3 views Exam date and time: February 12, 2025 0505 hours INDICATIONS: Patient fell today with injury to the upper back, upper back pain. FINDINGS: Prominent osteopenia Chronic wedging, mild, lower dorsal vertebral bodies. No acute thoracic fracture. [id number] diffuse thoracic degenerative disc disease
[2025-02-12 07:43] VITALS: BP 126/51; PULSE 62; RESP 16; TEMP 36.6; O2SAT 95
== END 2025-02-12 07:44 | disposition home or self-care (01) ==
PROVIDERS: Emergency Medicine; Emergency Provider Emergency Medicine; PCP Nurse Practitioner Family
DX: R55 Syncope and collapse (principal); N18.9 Chronic kidney disease, unspecified; F31.9 Bipolar disorder, unspecified; M48.54XA Collapsed vertebra, not elsewhere classified, thoracic region, initial encounter for fracture
CPT/HCPCS: 36415; 72072; 72100; 80048; 99283; A9270

== ENCOUNTER → 2025-03-10 | Outpatient (CLI) | payer MEDICARE, BC, SELFPAY ==
[2025-03-10 15:31] LABS: Basophils # (Auto) 0.1 Thou/mm3 (0.0-0.2); Basophils % (Auto) 1 % (0-2.5); Eosinophils # (Auto) 0.1 Thou/mm3 (0.0-0.5); Eosinophils % (Auto) 1 % (0-10); Hematocrit 31.8 % (36.0-46.0); Hemoglobin 10.4 g/dL (12.0-16.0); Immature Granulocytes % (Auto) 0 % (0-0); Immature Granulocytes Auto 0.04 Thou/mm3 (0.00-0.00); Lymphocytes # (Auto) 2.1 Thou/mm3 (1.0-4.8); Lymphocytes % (Auto) 21 % (10-50); Mean Corpuscular HGB Conc 32.7 g/dl (31.0-37.0); Mean Corpuscular Hemoglobin 31.8 pg (25.0-35.0); Mean Corpuscular Volume 97 fL (80-100); Monocytes # (Auto) 0.6 Thou/mm3 (0.0-0.8); Monocytes % (Auto) 6 % (0-12); Neutrophils # (Auto) 7.1 Thou/mm3 (1.8-7.7); Neutrophils % (Auto) 71 % (37-80); Nucleated Red Blood Cell % 0 /100 WBC (0); Platelet Count 442 Thou/mm3 (140-440); RDW Standard Deviation 55.5 fL (36.4-46.3); Red Blood Count 3.27 Miln/mm3 (4.00-5.20); White Blood Count 9.9 Thou/mm3 (3.6-11.0)
[2025-03-10 15:46] LABS: Albumin, Serum 4.1 gm/dL (3.4-4.8); Anion Gap 11 (7-16); BUN/Creatinine Ratio 9 Ratio (12-20); Blood Urea Nitrogen 19 mg/dL (9-23); Calcium 9.7 mg/dL (8.3-10.6); Calcium (Corrected) 9.7 mg/dL (8.5-10.1); Carbon Dioxide 22.4 mMol/L (20.0-31.0); Chloride 110 mMol/L (98-107); Creatinine (Component) 2.2 mg/dL (0.6-1.3); Glucose 114 mg/dL (74-106); Iron 87 mcg/dL (50-170); Osmolality,Calculated 288 (275-295); Percent Iron Saturation 31 % (20-55); Phosphorous 3.4 mg/dL (2.4-5.1); Potassium 3.9 mMol/L (3.4-5.1); Sodium 143 mMol/L (136-145); Total Iron Binding Capacity 276 mcg/dL (250-425); Unsaturated Iron Binding 189 (225-295); eGFR 24 See Note
== END | disposition home or self-care (01) ==
LOC: COPL 13:48
PROVIDERS: PCP Family Medicine; Referring Provider Internal Medicine; Visit Provider Internal Medicine
DX: N18.4 Chronic kidney disease, stage 4 (severe) (principal); D63.1 Anemia in chronic kidney disease; F32.9 Major depressive disorder, single episode, unspecified; D50.9 Iron deficiency anemia, unspecified; E55.9 Vitamin D deficiency, unspecified
CPT/HCPCS: 36415; 80069; 83540; 83550; 85025

== ENCOUNTER → 2025-03-12 | Outpatient (CLI) | payer MEDICARE, BC, SELFPAY ==
--- NOTE | 2025-03-12 13:25 | XR_ITS ---
Examination: Lumbar spine, 5 views Technique: Lumbar spine AP, lateral, coned lateral lower lumbar spine, bilateral obliques 5 views Exam date and time: March 12, 2025 at 1335 hours Comparison February 12, 2025 INDICATIONS: Low back pain after falling 6 weeks ago FINDINGS: Stable chronic wedging T12 No acute lumbar fracture Moderate lumbar spondylosis Moderate disc narrowing L1-L2, L2-L3 IMPRESSION: No acute lumbar fracture
[2025-03-12 13:59] LABS: Collection Type, Urine Clean Catch
[2025-03-12 16:17] LABS: Bilirubin,Urine Negative (Negative); Blood,Urine Negative (Negative); Clarity,Urine Clear (Clear/Hazy); Color,Urine Lt-Yellow (Lt Yel-Yel); Glucose, Urine Negative (Negative); Ketones,Urine Negative (Negative); Leukocyte Esterase,Urine Negative (Negative); Nitrite,Urine Negative (Negative); Protein,Urine Negative (Neg - Trace); RBC,Urine < 1 /hpf (0-3); Specific Gravity,Urine 1.008 (1.001-1.035); Squamous Epithelial Cell,Urine 1 /hpf (0-5); Urobilinogen,Urine Negative mg/dL (0.0-1.0); WBC,Urine < 1 /hpf (0-5)
== END | disposition home or self-care (01) ==
LOC: CDIM 13:12 → SLDO 13:59
PROVIDERS: PCP Nurse Practitioner Family; Referring Provider Nurse Practitioner Family; Visit Provider Nurse Practitioner Family
DX: N39.0 Urinary tract infection, site not specified (principal); M54.50 Low back pain, unspecified
CPT/HCPCS: 72110; 81001; 87086

== ENCOUNTER → 2025-03-19 | Outpatient (CLI) | payer MEDICARE, BC, SELFPAY | END | disposition home or self-care (01) | LOC: COPL 15:24 | PROVIDERS: PCP Nurse Practitioner Family; Referring Provider Psychiatry & Neurology Psychiatry; Visit Provider Psychiatry & Neurology Psychiatry | DX: F31.9 Bipolar disorder, unspecified (principal) | CPT/HCPCS: 36415; 80178 ==

== ENCOUNTER → 2025-04-19 | Outpatient (CLI) | payer MEDICARE, BC, SELFPAY ==
[2025-04-19 13:36] LABS: Lithium 0.74 mEq/L (1.00-1.20)
== END | disposition home or self-care (01) ==
LOC: COPL 11:31
PROVIDERS: PCP Nurse Practitioner Family; Referring Provider Psychiatry & Neurology Psychiatry; Visit Provider Psychiatry & Neurology Psychiatry
DX: F31.9 Bipolar disorder, unspecified (principal)
CPT/HCPCS: 36415; 80178

== ENCOUNTER → 2025-05-27 | Outpatient (CLI) | payer MEDICARE, BC, SELFPAY ==
[2025-05-27 13:25] LABS: Vitamin D 25 Hydroxy Total 41.1 ng/mL (7.3-40.2)
[2025-05-27 13:37] LABS: Albumin, Serum 4.3 gm/dL (3.4-4.8); Anion Gap 7 (7-16); BUN/Creatinine Ratio 9 Ratio (12-20); Blood Urea Nitrogen 17 mg/dL (9-23); Calcium 10.5 mg/dL (8.3-10.6); Calcium (Corrected) 10.5 mg/dL (8.5-10.1); Carbon Dioxide 21.8 mMol/L (20.0-31.0); Chloride 108 mMol/L (98-107); Creatinine (Component) 2.0 mg/dL (0.6-1.3); Glucose 108 mg/dL (74-106); Osmolality,Calculated 276 (275-295); Phosphorous 3.0 mg/dL (2.4-5.1); Potassium 3.8 mMol/L (3.4-5.1); Sodium 137 mMol/L (136-145); eGFR 27 See Note
== END | disposition home or self-care (01) ==
LOC: COPL 11:34
PROVIDERS: PCP Nurse Practitioner Family; Referring Provider Internal Medicine; Visit Provider Internal Medicine
DX: N18.4 Chronic kidney disease, stage 4 (severe) (principal); D63.1 Anemia in chronic kidney disease; F32.9 Major depressive disorder, single episode, unspecified; D50.9 Iron deficiency anemia, unspecified; E55.9 Vitamin D deficiency, unspecified
CPT/HCPCS: 36415; 80069; 82306

== ENCOUNTER → 2025-06-03 | Outpatient (CLI) | payer MEDICARE, BC, SELFPAY ==
--- NOTE | 2025-06-03 14:45 | XR_ITS ---
Examination: Bone densitometry Date and time of exam:June 03, 2025 1525 hours INDICATIONS: Menopause age 52, family history mother hip fracture vitamin D and calcium one month Technique: Lumbar spine and hip total bone mineralization values of an calculated. Peak reference and age match control results have been displayed. Findings: Lumbar spine total bone mineralization is1.128 gm/cm2. This is 0.7 standard deviations above peak reference. This is 2.7 standard deviations above age-matched controls. Hip total bone mineralization is 0.852 gm/cm2 This is 0.7 standard deviations below peak reference. This is 0.6 standard deviations above age-matched controls Impression: There is normal mineralization based on lumbar spine measurements. There is normal mineralization based on hip measurements Lumbar mineralization is increased 9.2% compared with January 12, 2013 Hip mineralization is decreased 3.1% compared with January 12, 2013
== END | disposition home or self-care (01) ==
LOC: CDIM 14:43
PROVIDERS: Referring Provider Nurse Practitioner Family; Visit Provider Nurse Practitioner Family
DX: M81.0 Age-related osteoporosis without current pathological fracture (principal)
CPT/HCPCS: 77080

== ENCOUNTER → 2025-06-07 | Outpatient (CLI) | payer MEDICARE, BC, SELFPAY ==
[2025-06-07 16:53] LABS: Alanine Aminotransferase 17 U/L (10-49); Albumin, Serum 4.3 gm/dL (3.4-4.8); Albumin/Globulin Ratio 1.8 (1.2-2.2); Alkaline Phosphatase 78 U/L (46-116); Anion Gap 11 (7-16); Aspartate Amino Transferase 29 U/L (0-34); BUN/Creatinine Ratio 11 Ratio (12-20); Bilirubin,Total 0.4 mg/dL (0.3-1.2); Blood Urea Nitrogen 25 mg/dL (9-23); Calcium 10.9 mg/dL (8.3-10.6); Calcium (Corrected) 10.9 mg/dL (8.5-10.1); Carbon Dioxide 20.4 mMol/L (20.0-31.0); Cardiac Risk Estimate 2.6 RATIO (3.7-5.6); Chloride 104 mMol/L (98-107); Cholesterol 201 mg/dL (132-200); Creatinine (Component) 2.2 mg/dL (0.6-1.3); Free T4 (Free Thyroxine) 0.98 ng/dL (0.89-1.76); Globulin 2.4 gm/dL (2.3-3.5); Glucose 91 mg/dL (74-106); HDL Cholesterol 77 mg/dL (40-60); LDL Cholesterol,Calculated 107 mg/dL (0-130); Osmolality,Calculated 274 (275-295); Potassium 4.9 mMol/L (3.4-5.1); Sodium 135 mMol/L (136-145); Thyroid Stimulating Hormone 3.78 uIU/mL (0.55-4.78); Total Protein 6.7 gm/dL (5.7-8.2); Triglycerides 87 mg/dL (30-150); eGFR 24 See Note
[2025-06-07 16:57] LABS: Lithium 0.75 mEq/L (1.00-1.20)
== END | disposition home or self-care (01) ==
LOC: COPL 13:35
PROVIDERS: PCP Family Medicine; Referring Provider Psychiatry & Neurology Psychiatry; Visit Provider Nurse Practitioner Family
DX: F31.9 Bipolar disorder, unspecified (principal); I10 Essential (primary) hypertension; E03.9 Hypothyroidism, unspecified
CPT/HCPCS: 36415; 80053; 80061; 80178; 84439; 84443

== ENCOUNTER → 2025-08-16 | Outpatient (CLI) | payer MEDICARE, BC, SELFPAY ==
[2025-08-16 12:24] LABS: Lithium 0.68 mEq/L (1.00-1.20)
== END | disposition home or self-care (01) ==
PROVIDERS: PCP Nurse Practitioner Family; Referring Provider Psychiatry & Neurology Psychiatry; Visit Provider Psychiatry & Neurology Psychiatry
DX: F31.9 Bipolar disorder, unspecified (principal)
CPT/HCPCS: 36415; 80178